=== PATIENT | male | born 1955 | race Caucasian/White ===

== ENCOUNTER 2017-12-14 08:08 | Day surgery (SDC) | payer BC ==
[~2017-12-14] VITALS: Ht 177.8 cm; Wt 78.9 kg
[~2017-12-14 08:08] MED LIST: AMLO5 PO; ATOR20 PO; Hair, Skin & N1 EACH PO
== END 2017-12-14 09:49 | disposition home or self-care (01) ==
LOC: ORSCMMR 08:08 → ORD 09:00 → ORSCMMR 09:49
PROVIDERS: Internal Medicine Gastroenterology
PROC: 0DBN8ZX Excision of Sigmoid Colon, Via Natural or Artificial Opening Endoscopic, Diagnostic (ICD-10-PCS; principal; 2017-12-14 09:00)
PROC: 0DBL8ZX Excision of Transverse Colon, Via Natural or Artificial Opening Endoscopic, Diagnostic (ICD-10-PCS; principal; 2017-12-14 09:00)
DX: Z12.11 Encounter for screening for malignant neoplasm of colon (principal); D12.3 Benign neoplasm of transverse colon; K63.5 Polyp of colon; J44.9 Chronic obstructive pulmonary disease, unspecified; R01.1 Cardiac murmur, unspecified; I10 Essential (primary) hypertension; E78.00 Pure hypercholesterolemia, unspecified; Z79.899 Other long term (current) drug therapy; F17.210 Nicotine dependence, cigarettes, uncomplicated
CPT/HCPCS: 88305; J2250; J7120

== ENCOUNTER 2021-07-27 09:35 | Emergency (ER) | payer OTHER ==
[~2021-07-27] VITALS: Ht 175.3 cm; Wt 77.5 kg
[2021-07-27] MEDS ORDERED: PLAVIX75 MG PO (10:13)
[2021-07-27] MEDS ORDERED: Aspir 8181 MG PO (10:14)
[2021-07-27] MEDS ORDERED: IBUP600 (10:15)
[2021-07-27 10:19] LABS: BASOPHILS ABSOLUTE AUTO 0.05 K/mm3 (0.00-0.23); BASOPHILS PERCENT AUTO 1 % (0-2); EOSINOPHILS PERCENT AUTO 2 % (0-6); Hematocrit 44.3 % (37.0-53.0); IMMATURE GRAN ABSOLUTE AUTO 0.01 K/mm3 (0.00-0.10); IMMATURE GRAN PERCENT AUTO 0 % (0-1); LYMPHOCYTES ABSOLUTE AUTO 1.23 K/mm3 (0.84-5.20); LYMPHOCYTES PERCENT AUTO 19 % (21-46); MONOCYTES ABSOLUTE AUTO 0.59 K/mm3 (0.16-1.47); MONOCYTES PERCENT AUTO 9 % (4-13); Mean Corpuscular HGB 31.6 pg (26.0-34.0); Mean Corpuscular HGB Conc 33.9 g/dL (31.5-36.5); Mean Corpuscular Volume 93 fL (80-100); Mean Platelet Volume 8.6 fL (9.1-12.4); NEUTROPHILS ABSOLUTE AUTO 4.36 K/mm3 (1.96-9.15); NEUTROPHILS PERCENT AUTO 69 % (41-73); Platelet Count 348 K/mm3 (150-400); RDW Coefficient Variation 13.4 % (11.7-14.2); RDW Standard Deviation 46.5 fL (35.1-46.3); Red Blood Cell Count 4.75 M/mm3 (4.30-5.90); White Blood Cell Count 6.34 K/mm3 (4.00-11.30)
[2021-07-27 10:50] LABS: Alanine Aminotransfer (ALT/SGP 20 U/L (12-78); Albumin, Blood 3.3 g/dL (3.4-5.0); Albumin/Globulin Ratio 0.9 (0.8-1.8); Alk Phos 76 U/L (50-136); Anion Gap 3 mmol/L (6-16); Aspartate Aminotrans (AST/SGOT 17 U/L (12-37); Bilirubin, Total 0.3 mg/dL (0.1-1.0); Blood Urea Nitrogen 18 mg/dL (8-24); Bun/Creatinine Ratio 27.1 (12.0-20.0); CO2, Blood 28 mmol/L (21-32); Calcium, Blood 8.7 mg/dL (8.5-10.1); Chloride, Blood 108 mmol/L (98-108); Creatinine, Blood 0.66 mg/dL (0.60-1.20); Globulin, Blood 3.8 g/dL (2.2-4.0); Glomerular Filtration Rate >60 (60-); Glucose, Blood 108 mg/dL (70-99); Potassium, Blood 4.5 mmol/L (3.5-5.5); Sodium, Blood 139 mmol/L (136-145); Total Protein, Blood 7.1 g/dL (6.4-8.2); Troponin I <0.015 ng/mL (0.000-0.040)
[2021-07-27 11:05] LABS: SARS-Cov-2 (COVID-19) PCR, MMC NEGATIVE (NEGATIVE)
== END 2021-07-27 14:30 | disposition home or self-care (01) ==
LOC: ER 09:35
PROVIDERS: Emergency Medicine
DX: C34.91 Malignant neoplasm of unspecified part of right bronchus or lung (principal); I10 Essential (primary) hypertension; Z20.822 Contact with and (suspected) exposure to COVID-19; F17.200 Nicotine dependence, unspecified, uncomplicated; Z79.899 Other long term (current) drug therapy
CPT/HCPCS: 36415; 71045; 71260; 80053; 83690; 83880; 84484; 85025; 93005; 93010; 99284-25; Q9967; U0004

== ENCOUNTER 2022-02-07 10:39 | Emergency (ER) | payer MEDICARE ==
[~2022-02-07] VITALS: Ht 177.8 cm; Wt 81.7 kg
[~2022-02-07 10:39] MED LIST changes: +ALBU2.5V5 INH; +AMOCLA875 PO; +Aspir 8181 MG PO; +DOXY100 PO; +HYDACE10B PO; +HYDROCODONE-AC1 EA15 PO; +IBUP600; +PLAVIX75 MG PO
[2022-02-07 11:09] LABS: BASOPHILS ABSOLUTE AUTO 0.05 K/mm3 (0.00-0.23); BASOPHILS PERCENT AUTO 1 % (0-2); EOSINOPHILS ABSOLUTE AUTO 0.19 K/mm3 (0.00-0.68); EOSINOPHILS PERCENT AUTO 4 % (0-6); Hematocrit 40.2 % (37.0-53.0); Hemoglobin 13.6 g/dL (13.5-17.5); IMMATURE GRAN ABSOLUTE AUTO 0.02 K/mm3 (0.00-0.10); IMMATURE GRAN PERCENT AUTO 0 % (0-1); LYMPHOCYTES ABSOLUTE AUTO 0.48 K/mm3 (0.84-5.20); LYMPHOCYTES PERCENT AUTO 10 % (21-46); MONOCYTES ABSOLUTE AUTO 0.78 K/mm3 (0.16-1.47); MONOCYTES PERCENT AUTO 16 % (4-13); Mean Corpuscular HGB 33.9 pg (26.0-34.0); Mean Corpuscular HGB Conc 33.8 g/dL (31.5-36.5); Mean Corpuscular Volume 100 fL (80-100); Mean Platelet Volume 8.6 fL (9.1-12.4); NEUTROPHILS ABSOLUTE AUTO 3.23 K/mm3 (1.96-9.15); NEUTROPHILS PERCENT AUTO 68 % (41-73); Platelet Count 276 K/mm3 (150-400); RDW Coefficient Variation 12.5 % (11.7-14.2); RDW Standard Deviation 46.6 fL (35.1-46.3); Red Blood Cell Count 4.01 M/mm3 (4.30-5.90); White Blood Cell Count 4.75 K/mm3 (4.00-11.30)
[2022-02-07 11:35] LABS: Albumin, Blood 3.1 g/dL (3.4-5.0); Albumin/Globulin Ratio 0.9 (0.8-1.8); Bilirubin, Total 0.4 mg/dL (0.1-1.0); Bun/Creatinine Ratio 13.5 (12.0-20.0); Calcium, Blood 8.3 mg/dL (8.5-10.1); Creatinine, Blood 0.59 mg/dL (0.60-1.20); Globulin, Blood 3.6 g/dL (2.2-4.0); Potassium, Blood 4.2 mmol/L (3.5-5.5); Total Protein, Blood 6.7 g/dL (6.4-8.2)
[2022-02-07 13:42] LABS: SARS-Cov-2 (COVID-19) PCR, MMC NEGATIVE (NEGATIVE)
[2022-02-07] MEDS ORDERED: DOXY100 PO (14:37)
[2022-02-07] MEDS ORDERED: AMOCLA875 PO (14:37)
== END 2022-02-07 15:28 | disposition home or self-care (01) ==
LOC: ER 10:39
PROVIDERS: Physician Assistant
DX: J18.9 Pneumonia, unspecified organism (principal); I10 Essential (primary) hypertension; I25.2 Old myocardial infarction; F17.210 Nicotine dependence, cigarettes, uncomplicated; Z20.822 Contact with and (suspected) exposure to COVID-19; Z85.118 Personal history of other malignant neoplasm of bronchus and lung; Z79.899 Other long term (current) drug therapy
CPT/HCPCS: 36415; 71046; 71260; 80053; 83880; 84484; 85025; 85379; 93005; 93010; 94640; 94664; A9270; Q9967; U0004

== ENCOUNTER 2022-03-31 05:58 | Emergency (ER) | payer OTHER ==
[~2022-03-31] VITALS: Ht 177.8 cm; Wt 81.7 kg
[2022-03-31 06:55] LABS: BASOPHILS ABSOLUTE AUTO 0.06 K/mm3 (0.00-0.23); BASOPHILS PERCENT AUTO 1 % (0-2); EOSINOPHILS ABSOLUTE AUTO 0.32 K/mm3 (0.00-0.68); EOSINOPHILS PERCENT AUTO 5 % (0-6); Hemoglobin 14.8 g/dL (13.5-17.5); IMMATURE GRAN ABSOLUTE AUTO 0.04 K/mm3 (0.00-0.10); IMMATURE GRAN PERCENT AUTO 1 % (0-1); LYMPHOCYTES ABSOLUTE AUTO 0.16 K/mm3 (0.84-5.20); LYMPHOCYTES PERCENT AUTO 2 % (21-46); MONOCYTES ABSOLUTE AUTO 0.52 K/mm3 (0.16-1.47); MONOCYTES PERCENT AUTO 8 % (4-13); Mean Corpuscular HGB Conc 33.6 g/dL (31.5-36.5); Mean Corpuscular Volume 95 fL (80-100); Mean Platelet Volume 8.1 fL (9.1-12.4); NEUTROPHILS ABSOLUTE AUTO 5.81 K/mm3 (1.96-9.15); NEUTROPHILS PERCENT AUTO 84 % (41-73); Platelet Count 388 K/mm3 (150-400); Red Blood Cell Count 4.62 M/mm3 (4.30-5.90); White Blood Cell Count 6.91 K/mm3 (4.00-11.30)
[2022-03-31 07:30] LABS: Albumin, Blood 3.2 g/dL (3.4-5.0); Albumin/Globulin Ratio 0.8 (0.8-1.8); Bilirubin, Total 0.2 mg/dL (0.1-1.0); Bun/Creatinine Ratio 15.4 (12.0-20.0); Calcium, Blood 8.6 mg/dL (8.5-10.1); Creatinine, Blood 0.59 mg/dL (0.60-1.20); Globulin, Blood 3.8 g/dL (2.2-4.0); Potassium, Blood 4.1 mmol/L (3.5-5.5)
[2022-03-31 07:47] LABS: Source, Urine Clean Catch
[2022-03-31 07:51] LABS: Appearance, Urine Clear (Clear); Bilirubin, Urine Neg (Neg); Blood, Urine Neg (Neg); Glucose Qualitative, Urine Neg (Neg); Ketones, Urine Neg (Neg); Leukocyte Esterase, Urine Neg (Neg); Nitrite, Urine Neg (Neg); Protein, Urine Neg (Neg); Urobilinogen, Urine NORM (Normal)
[2022-03-31 07:52] LABS: Color, Urine Pale Yellow (P-Yellow)
== END 2022-03-31 08:41 | disposition home or self-care (01) ==
LOC: ER 05:58
PROVIDERS: Emergency Medicine
DX: R10.31 Right lower quadrant pain (principal); I25.2 Old myocardial infarction; I10 Essential (primary) hypertension; F17.210 Nicotine dependence, cigarettes, uncomplicated; Z79.899 Other long term (current) drug therapy; Z79.82 Long term (current) use of aspirin
CPT/HCPCS: 74177; 80053; 81003; 83605; 83690; 85025; J2270; J2405; J7030; Q9967

== ENCOUNTER → 2022-04-02 | Outpatient (CLI) | payer OTHER ==
[2022-04-02 19:15] LABS: BASOPHILS ABSOLUTE AUTO 0.06 K/mm3 (0.00-0.23); BASOPHILS PERCENT AUTO 1 % (0-2); EOSINOPHILS ABSOLUTE AUTO 0.29 K/mm3 (0.00-0.68); EOSINOPHILS PERCENT AUTO 5 % (0-6); Hematocrit 43.2 % (37.0-53.0); Hemoglobin 14.4 g/dL (13.5-17.5); IMMATURE GRAN ABSOLUTE AUTO 0.02 K/mm3 (0.00-0.10); IMMATURE GRAN PERCENT AUTO 0 % (0-1); LYMPHOCYTES PERCENT AUTO 8 % (21-46); MONOCYTES ABSOLUTE AUTO 0.55 K/mm3 (0.16-1.47); MONOCYTES PERCENT AUTO 10 % (4-13); Mean Corpuscular HGB 32.1 pg (26.0-34.0); Mean Corpuscular HGB Conc 33.3 g/dL (31.5-36.5); Mean Corpuscular Volume 96 fL (80-100); Mean Platelet Volume 9.6 fL (9.1-12.4); NEUTROPHILS ABSOLUTE AUTO 4.01 K/mm3 (1.96-9.15); NEUTROPHILS PERCENT AUTO 75 % (41-73); Platelet Count 350 K/mm3 (150-400); RDW Coefficient Variation 13.1 % (11.7-14.2); RDW Standard Deviation 46.4 fL (35.1-46.3); Red Blood Cell Count 4.48 M/mm3 (4.30-5.90); White Blood Cell Count 5.33 K/mm3 (4.00-11.30)
[2022-04-02 20:12] LABS: Albumin, Blood 3.3 g/dL (3.4-5.0); Bilirubin, Total 0.5 mg/dL (0.1-1.0); Calcium, Blood 9.2 mg/dL (8.5-10.1); Creatinine, Blood 0.57 mg/dL (0.60-1.20); Globulin, Blood 3.2 g/dL (2.2-4.0); Potassium, Blood 4.8 mmol/L (3.5-5.5); Total Protein, Blood 6.5 g/dL (6.4-8.2)
== END | disposition home or self-care (01) ==
LOC: LAB 12:33 → LAB SHORT 12:33
PROVIDERS: Family Medicine
DX: C34.90 Malignant neoplasm of unspecified part of unspecified bronchus or lung (principal); K92.2 Gastrointestinal hemorrhage, unspecified
CPT/HCPCS: 80053; 85025

== ENCOUNTER 2022-06-24 09:28 | Emergency (ER) | payer OTHER ==
[~2022-06-24] VITALS: Ht 177.8 cm; Wt 81.7 kg
[~2022-06-24 09:28] MED LIST changes: +CEFU500T30 PO; +OMEP20ER PO; +TRAM50 PO
[2022-06-24] MEDS ORDERED: ALPRAZOLAM0.5 M1 PO (09:51)
[2022-06-24 10:13] LABS: BASOPHILS ABSOLUTE AUTO 0.09 K/mm3 (0.00-0.23); BASOPHILS PERCENT AUTO 2 % (0-2); EOSINOPHILS ABSOLUTE AUTO 0.19 K/mm3 (0.00-0.68); EOSINOPHILS PERCENT AUTO 4 % (0-6); Hematocrit 44.8 % (37.0-53.0); Hemoglobin 15.5 g/dL (13.5-17.5); IMMATURE GRAN ABSOLUTE AUTO 0.02 K/mm3 (0.00-0.10); IMMATURE GRAN PERCENT AUTO 0 % (0-1); LYMPHOCYTES ABSOLUTE AUTO 0.51 K/mm3 (0.84-5.20); LYMPHOCYTES PERCENT AUTO 9 % (21-46); MONOCYTES ABSOLUTE AUTO 0.32 K/mm3 (0.16-1.47); MONOCYTES PERCENT AUTO 6 % (4-13); Mean Corpuscular HGB 32.7 pg (26.0-34.0); Mean Corpuscular HGB Conc 34.6 g/dL (31.5-36.5); Mean Corpuscular Volume 95 fL (80-100); NEUTROPHILS ABSOLUTE AUTO 4.34 K/mm3 (1.96-9.15); NEUTROPHILS PERCENT AUTO 79 % (41-73); Platelet Count 305 K/mm3 (150-400); RDW Coefficient Variation 13.7 % (11.7-14.2); RDW Standard Deviation 48.1 fL (35.1-46.3); Red Blood Cell Count 4.74 M/mm3 (4.30-5.90); White Blood Cell Count 5.47 K/mm3 (4.00-11.30)
[2022-06-24 10:51] LABS: Albumin, Blood 3.9 g/dL (3.4-5.0); Albumin/Globulin Ratio 1.1 (0.8-1.8); Bilirubin, Total 0.4 mg/dL (0.1-1.0); Bun/Creatinine Ratio 10.8 (12.0-20.0); Calcium, Blood 8.6 mg/dL (8.5-10.1); Creatinine, Blood 0.65 mg/dL (0.60-1.20); Globulin, Blood 3.7 g/dL (2.2-4.0); Potassium, Blood 3.7 mmol/L (3.5-5.5); Total Protein, Blood 7.6 g/dL (6.4-8.2)
[2022-06-24 11:05] LABS: Influenza A, PCR NEGATIVE (NEGATIVE); Influenza B, PCR NEGATIVE (NEGATIVE); Resp Syncytial Virus, PCR NEGATIVE (NEGATIVE); SARS-Cov-2 (COVID-19) PCR, MMC NEGATIVE (NEGATIVE)
[2022-06-24] MEDS ORDERED: Prednisone20 MG PO (13:18)
== END 2022-06-24 13:27 | disposition home or self-care (01) ==
LOC: ER 09:28
PROVIDERS: Emergency Medicine
DX: R06.02 Shortness of breath (principal); I10 Essential (primary) hypertension; I25.2 Old myocardial infarction; J44.9 Chronic obstructive pulmonary disease, unspecified; F17.210 Nicotine dependence, cigarettes, uncomplicated; Z79.899 Other long term (current) drug therapy; Z79.82 Long term (current) use of aspirin; Z20.822 Contact with and (suspected) exposure to COVID-19; Z85.118 Personal history of other malignant neoplasm of bronchus and lung
CPT/HCPCS: 0241U; 36415; 71045; 80053; 83880; 84484; 85025; 85379; 93005; 93010; 94644; 94664; 96374; 99285-25; J2930

== ENCOUNTER → 2022-07-08 | Outpatient (CLI) | payer OTHER ==
[~2022-07-08] MED LIST changes: +ALPRAZOLAM0.5 M1 PO; +Prednisone20 MG PO
[2022-07-08 11:18] LABS: BASOPHILS ABSOLUTE AUTO 0.01 K/mm3 (0.00-0.23); BASOPHILS PERCENT AUTO 0 % (0-2); EOSINOPHILS ABSOLUTE AUTO 0.03 K/mm3 (0.00-0.68); EOSINOPHILS PERCENT AUTO 0 % (0-6); Hematocrit 42.7 % (37.0-53.0); IMMATURE GRAN ABSOLUTE AUTO 0.08 K/mm3 (0.00-0.10); IMMATURE GRAN PERCENT AUTO 1 % (0-1); LYMPHOCYTES ABSOLUTE AUTO 0.55 K/mm3 (0.84-5.20); LYMPHOCYTES PERCENT AUTO 7 % (21-46); MONOCYTES ABSOLUTE AUTO 0.88 K/mm3 (0.16-1.47); MONOCYTES PERCENT AUTO 11 % (4-13); Mean Corpuscular HGB Conc 32.8 g/dL (31.5-36.5); Mean Corpuscular Volume 98 fL (80-100); Mean Platelet Volume 8.5 fL (9.1-12.4); NEUTROPHILS ABSOLUTE AUTO 6.58 K/mm3 (1.96-9.15); NEUTROPHILS PERCENT AUTO 81 % (41-73); Platelet Count 383 K/mm3 (150-400); RDW Coefficient Variation 15.2 % (11.7-14.2); RDW Standard Deviation 54.4 fL (35.1-46.3); Red Blood Cell Count 4.38 M/mm3 (4.30-5.90); White Blood Cell Count 8.13 K/mm3 (4.00-11.30)
[2022-07-08 11:50] LABS: Albumin, Blood 3.3 g/dL (3.4-5.0); Bilirubin, Total 0.4 mg/dL (0.1-1.0); Bun/Creatinine Ratio 25.1 (12.0-20.0); Calcium, Blood 9.1 mg/dL (8.5-10.1); Creatinine, Blood 0.56 mg/dL (0.60-1.20); Globulin, Blood 3.2 g/dL (2.2-4.0); Potassium, Blood 4.7 mmol/L (3.5-5.5); Total Protein, Blood 6.5 g/dL (6.4-8.2)
== END ==
LOC: LAB SHORT 10:50 → LAB 10:50
PROVIDERS: Internal Medicine Hematology & Oncology
DX: C34.90 Malignant neoplasm of unspecified part of unspecified bronchus or lung (principal)
CPT/HCPCS: 80053; 85025

== ENCOUNTER 2022-07-25 07:17 | Emergency (ER) | payer OTHER ==
[~2022-07-25] VITALS: Ht 177.8 cm; Wt 79.4 kg
[2022-07-25 08:59] LABS: BASOPHILS ABSOLUTE AUTO 0.07 K/mm3 (0.00-0.23); BASOPHILS PERCENT AUTO 1 % (0-2); EOSINOPHILS ABSOLUTE AUTO 0.48 K/mm3 (0.00-0.68); EOSINOPHILS PERCENT AUTO 9 % (0-6); Hematocrit 46.3 % (37.0-53.0); Hemoglobin 15.5 g/dL (13.5-17.5); IMMATURE GRAN ABSOLUTE AUTO 0.01 K/mm3 (0.00-0.10); IMMATURE GRAN PERCENT AUTO 0 % (0-1); LYMPHOCYTES ABSOLUTE AUTO 0.45 K/mm3 (0.84-5.20); LYMPHOCYTES PERCENT AUTO 9 % (21-46); MONOCYTES ABSOLUTE AUTO 0.63 K/mm3 (0.16-1.47); MONOCYTES PERCENT AUTO 12 % (4-13); Mean Corpuscular HGB 32.8 pg (26.0-34.0); Mean Corpuscular HGB Conc 33.5 g/dL (31.5-36.5); Mean Corpuscular Volume 98 fL (80-100); Mean Platelet Volume 8.3 fL (9.1-12.4); NEUTROPHILS ABSOLUTE AUTO 3.45 K/mm3 (1.96-9.15); NEUTROPHILS PERCENT AUTO 68 % (41-73); Platelet Count 362 K/mm3 (150-400); RDW Coefficient Variation 14.3 % (11.7-14.2); RDW Standard Deviation 52.3 fL (35.1-46.3); Red Blood Cell Count 4.72 M/mm3 (4.30-5.90); White Blood Cell Count 5.09 K/mm3 (4.00-11.30)
[2022-07-25 09:19] LABS: Albumin, Blood 3.7 g/dL (3.4-5.0); Albumin/Globulin Ratio 1.1 (0.8-1.8); Bilirubin, Total 0.4 mg/dL (0.1-1.0); Bun/Creatinine Ratio 21.2 (12.0-20.0); Calcium, Blood 8.9 mg/dL (8.5-10.1); Creatinine, Blood 0.52 mg/dL (0.60-1.20); Globulin, Blood 3.5 g/dL (2.2-4.0); Potassium, Blood 4.3 mmol/L (3.5-5.5); Total Protein, Blood 7.2 g/dL (6.4-8.2)
[2022-07-25] MEDS ORDERED: PRED20 PO (10:49)
== END 2022-07-25 10:59 | disposition home or self-care (01) ==
LOC: ER 07:17
PROVIDERS: Emergency Medicine
DX: R06.02 Shortness of breath (principal); J44.9 Chronic obstructive pulmonary disease, unspecified; C34.90 Malignant neoplasm of unspecified part of unspecified bronchus or lung; I10 Essential (primary) hypertension; F17.210 Nicotine dependence, cigarettes, uncomplicated; Z79.899 Other long term (current) drug therapy; Z79.82 Long term (current) use of aspirin; Z99.81 Dependence on supplemental oxygen
CPT/HCPCS: 36415; 71045; 80053; 83880; 84484; 85025; 93005; 93010; 94644; 94664; J2930

== ENCOUNTER 2022-07-30 15:12 | Emergency (ER) | payer OTHER ==
[~2022-07-30] VITALS: Ht 177.8 cm; Wt 77.1 kg
[~2022-07-30 15:12] MED LIST changes: +PRED20 PO
[2022-07-30 16:01] LABS: BASOPHILS ABSOLUTE AUTO 0.03 K/mm3 (0.00-0.23); BASOPHILS PERCENT AUTO 0 % (0-2); EOSINOPHILS ABSOLUTE AUTO 0.03 K/mm3 (0.00-0.68); EOSINOPHILS PERCENT AUTO 0 % (0-6); Hematocrit 46.8 % (37.0-53.0); Hemoglobin 15.8 g/dL (13.5-17.5); IMMATURE GRAN ABSOLUTE AUTO 0.07 K/mm3 (0.00-0.10); IMMATURE GRAN PERCENT AUTO 1 % (0-1); LYMPHOCYTES ABSOLUTE AUTO 0.28 K/mm3 (0.84-5.20); LYMPHOCYTES PERCENT AUTO 3 % (21-46); MONOCYTES ABSOLUTE AUTO 0.21 K/mm3 (0.16-1.47); MONOCYTES PERCENT AUTO 3 % (4-13); Mean Corpuscular HGB 32.9 pg (26.0-34.0); Mean Corpuscular HGB Conc 33.8 g/dL (31.5-36.5); Mean Corpuscular Volume 98 fL (80-100); Mean Platelet Volume 8.4 fL (9.1-12.4); NEUTROPHILS ABSOLUTE AUTO 7.56 K/mm3 (1.96-9.15); NEUTROPHILS PERCENT AUTO 92 % (41-73); Platelet Count 437 K/mm3 (150-400); RDW Coefficient Variation 14.4 % (11.7-14.2); RDW Standard Deviation 51.7 fL (35.1-46.3); White Blood Cell Count 8.18 K/mm3 (4.00-11.30)
[2022-07-30 17:03] LABS: Calcium, Blood 8.9 mg/dL (8.5-10.1); Creatinine, Blood 0.59 mg/dL (0.60-1.20); Potassium, Blood 4.3 mmol/L (3.5-5.5)
== END 2022-07-30 15:57 | disposition left against medical advice (07) ==
LOC: ER 15:12
PROVIDERS: Physician Assistant
DX: T38.0X1A Poisoning by glucocorticoids and synthetic analogues, accidental (unintentional), initial encounter (principal); C34.90 Malignant neoplasm of unspecified part of unspecified bronchus or lung; I10 Essential (primary) hypertension; I25.2 Old myocardial infarction; Z87.891 Personal history of nicotine dependence; Z53.21 Procedure and treatment not carried out due to patient leaving prior to being seen by health care provider
CPT/HCPCS: 80048; 85025

== ENCOUNTER 2022-08-18 04:18 | Emergency (ER) | payer OTHER ==
[~2022-08-18] VITALS: Ht 177.8 cm; Wt 77.1 kg
[2022-08-18] MEDS ORDERED: PRED20 PO (08:34)
[2022-08-18] MEDS ORDERED: ALBU2.5V5 INH (08:34)
[2022-08-18] MEDS ORDERED: AZIT500 PO (08:34)
== END 2022-08-18 08:58 | disposition home or self-care (01) ==
LOC: ER 04:18
DX: J44.1 Chronic obstructive pulmonary disease with (acute) exacerbation (principal); I10 Essential (primary) hypertension; I25.2 Old myocardial infarction; F17.210 Nicotine dependence, cigarettes, uncomplicated; Z95.5 Presence of coronary angioplasty implant and graft; Z79.899 Other long term (current) drug therapy; Z79.82 Long term (current) use of aspirin
CPT/HCPCS: 94640; 94644; 94664; A9270; J2930

== ENCOUNTER 2022-09-04 16:48 | Emergency (ER) | payer OTHER ==
[~2022-09-04] VITALS: Ht 177.8 cm; Wt 77.1 kg
[~2022-09-04 16:48] MED LIST changes: +AZIT500 PO
[2022-09-04 17:26] LABS: BASOPHILS ABSOLUTE AUTO 0.01 K/mm3 (0.00-0.23); BASOPHILS PERCENT AUTO 0 % (0-2); EOSINOPHILS ABSOLUTE AUTO 0.01 K/mm3 (0.00-0.68); EOSINOPHILS PERCENT AUTO 0 % (0-6); Hematocrit 44.7 % (37.0-53.0); Hemoglobin 14.9 g/dL (13.5-17.5); IMMATURE GRAN ABSOLUTE AUTO 0.03 K/mm3 (0.00-0.10); IMMATURE GRAN PERCENT AUTO 1 % (0-1); LYMPHOCYTES ABSOLUTE AUTO 0.18 K/mm3 (0.84-5.20); LYMPHOCYTES PERCENT AUTO 3 % (21-46); MONOCYTES ABSOLUTE AUTO 0.36 K/mm3 (0.16-1.47); MONOCYTES PERCENT AUTO 6 % (4-13); Mean Corpuscular HGB 32.7 pg (26.0-34.0); Mean Corpuscular HGB Conc 33.3 g/dL (31.5-36.5); Mean Corpuscular Volume 98 fL (80-100); Mean Platelet Volume 8.2 fL (9.1-12.4); NEUTROPHILS ABSOLUTE AUTO 5.57 K/mm3 (1.96-9.15); NEUTROPHILS PERCENT AUTO 90 % (41-73); Platelet Count 371 K/mm3 (150-400); RDW Coefficient Variation 15.8 % (11.7-14.2); RDW Standard Deviation 57.3 fL (35.1-46.3); Red Blood Cell Count 4.56 M/mm3 (4.30-5.90); White Blood Cell Count 6.16 K/mm3 (4.00-11.30)
[2022-09-04 17:46] LABS: Albumin, Blood 3.8 g/dL (3.4-5.0); Albumin/Globulin Ratio 1.2 (0.8-1.8); Bilirubin, Total 0.2 mg/dL (0.1-1.0); Bun/Creatinine Ratio 21.5 (12.0-20.0); Calcium, Blood 9.7 mg/dL (8.5-10.1); Creatinine, Blood 0.61 mg/dL (0.60-1.20); Globulin, Blood 3.3 g/dL (2.2-4.0); Potassium, Blood 4.4 mmol/L (3.5-5.5); Total Protein, Blood 7.1 g/dL (6.4-8.2)
[2022-09-04 18:02] LABS: Influenza A, PCR NEGATIVE (NEGATIVE); Influenza B, PCR NEGATIVE (NEGATIVE); Resp Syncytial Virus, PCR NEGATIVE (NEGATIVE); SARS-Cov-2 (COVID-19) PCR, MMC NEGATIVE (NEGATIVE)
[2022-09-04] MEDS ORDERED: IPRAT-ALBUT 0.5-3 ML INH (20:36)
[2022-09-04] MEDS ORDERED: PRED20 PO (20:36)
== END 2022-09-04 20:40 | disposition home or self-care (01) ==
LOC: ER 16:48
PROVIDERS: Emergency Medicine
DX: J44.1 Chronic obstructive pulmonary disease with (acute) exacerbation (principal); I10 Essential (primary) hypertension; I25.2 Old myocardial infarction; F17.210 Nicotine dependence, cigarettes, uncomplicated; Z79.82 Long term (current) use of aspirin; Z79.899 Other long term (current) drug therapy; Z79.52 Long term (current) use of systemic steroids; Z95.5 Presence of coronary angioplasty implant and graft; Z20.822 Contact with and (suspected) exposure to COVID-19
CPT/HCPCS: 0241U; 36415; 71046; 80053; 83880; 84484; 85025; 93005; 93010; 94640; 94664; J2930

== ENCOUNTER 2022-09-06 08:49 | Emergency (ER) | payer OTHER ==
[~2022-09-06] VITALS: Ht 177.8 cm; Wt 77.1 kg
[~2022-09-06 08:49] MED LIST changes: +IPRAT-ALBUT 0.5-3 ML INH
[2022-09-06] MEDS ORDERED: AMLO5 PO (09:24)
[2022-09-06] MEDS ORDERED: CLOP75 (09:25)
[2022-09-06] MEDS ORDERED: FURO40 PO (09:25)
[2022-09-07] MEDS ORDERED: PRED20 PO (04:19)
[2022-09-07] MEDS ORDERED: ALBU90OI INH (04:20)
== END 2022-09-06 09:45 | disposition home or self-care (01) ==
LOC: ER 08:49
DX: Z76.0 Encounter for issue of repeat prescription (principal); I10 Essential (primary) hypertension; I25.2 Old myocardial infarction; J44.9 Chronic obstructive pulmonary disease, unspecified; F17.210 Nicotine dependence, cigarettes, uncomplicated; Z95.5 Presence of coronary angioplasty implant and graft; Z79.899 Other long term (current) drug therapy; Z79.52 Long term (current) use of systemic steroids
CPT/HCPCS: 94640; 94664; J7512

== ENCOUNTER 2022-09-06 13:36 | Emergency (ER) | payer OTHER ==
[~2022-09-06] VITALS: Ht 177.8 cm; Wt 77.1 kg
[~2022-09-06 13:36] MED LIST changes: +CLOP75; +FURO40 PO
[2022-09-07] MEDS ORDERED: PRED20 PO (04:19)
[2022-09-07] MEDS ORDERED: ALBU90OI INH (04:20)
== END 2022-09-06 14:58 | disposition left against medical advice (07) ==
LOC: ER 13:36
DX: R06.00 Dyspnea, unspecified (principal); Z79.52 Long term (current) use of systemic steroids; Z79.899 Other long term (current) drug therapy; Z53.21 Procedure and treatment not carried out due to patient leaving prior to being seen by health care provider
CPT/HCPCS: 93005; 93010

== ENCOUNTER 2022-09-06 22:55 | Inpatient (IN) | payer OTHER ==
[~2022-09-06] VITALS: Ht 177.8 cm; Wt 73.1 kg
[2022-09-06 23:47] LABS: BASOPHILS ABSOLUTE AUTO 0.01 K/mm3 (0.00-0.23); BASOPHILS PERCENT AUTO 0 % (0-2); EOSINOPHILS ABSOLUTE AUTO 0.01 K/mm3 (0.00-0.68); EOSINOPHILS PERCENT AUTO 0 % (0-6); Hematocrit 40.3 % (37.0-53.0); Hemoglobin 13.7 g/dL (13.5-17.5); IMMATURE GRAN ABSOLUTE AUTO 0.05 K/mm3 (0.00-0.10); IMMATURE GRAN PERCENT AUTO 1 % (0-1); LYMPHOCYTES ABSOLUTE AUTO 0.52 K/mm3 (0.84-5.20); LYMPHOCYTES PERCENT AUTO 7 % (21-46); MONOCYTES ABSOLUTE AUTO 0.72 K/mm3 (0.16-1.47); MONOCYTES PERCENT AUTO 10 % (4-13); Mean Corpuscular Volume 97 fL (80-100); Mean Platelet Volume 8.2 fL (9.1-12.4); NEUTROPHILS PERCENT AUTO 82 % (41-73); Platelet Count 331 K/mm3 (150-400); RDW Coefficient Variation 15.8 % (11.7-14.2); RDW Standard Deviation 56.3 fL (35.1-46.3); Red Blood Cell Count 4.15 M/mm3 (4.30-5.90); White Blood Cell Count 7.21 K/mm3 (4.00-11.30)
[2022-09-06 23:57] LABS: Albumin, Blood 3.3 g/dL (3.4-5.0); Albumin/Globulin Ratio 1.1 (0.8-1.8); Bilirubin, Total 0.3 mg/dL (0.1-1.0); Bun/Creatinine Ratio 31.1 (12.0-20.0); Calcium, Blood 8.2 mg/dL (8.5-10.1); Creatinine, Blood 0.61 mg/dL (0.60-1.20); Globulin, Blood 2.9 g/dL (2.2-4.0); Potassium, Blood 4.5 mmol/L (3.5-5.5); Total Protein, Blood 6.2 g/dL (6.4-8.2)
[2022-09-07 01:01] LABS: Influenza A, PCR NEGATIVE (NEGATIVE); Influenza B, PCR NEGATIVE (NEGATIVE); Resp Syncytial Virus, PCR NEGATIVE (NEGATIVE); SARS-Cov-2 (COVID-19) PCR, MMC NEGATIVE (NEGATIVE)
[2022-09-07] MEDS ORDERED: PRED20 PO (04:19)
[2022-09-07] MEDS ORDERED: ALBU90OI INH (04:20)
--- NOTE | 2022-09-07 16:18 | NUR ---
PATIENT ARRIVED TO ROOM AT 1420 VIA WHEELCHAIR. PATIENT TRANSFERRED TO BED INDEPENDENTLY. QUICK ADMISSION DONE. ASSESSMENT AND MEDRIC DONE. SKIN ASSESSMENT c 2 RN VERIFIED DONE. PATIENT ORIENT TO ROOM AND CALL SYSTEM. PATIENT ON O2 2L VIA NC c SPO2 OF 100%. PATIENT REPORTS SOB. LUNGS HAS INS. WHEEZES T/O TO AUSCULTATION. DENIES CP/CHEST DISCOMFORT. FLU VACCINE WAS ADMINISTERED. PATIENT RECEIVED BREATHING TX ADMINISTERED BY RT. AMBULATES IN ROOM INDEPENDENTLY WITHOUT USING ANY ASSISTIVE DEVICES. PATIENT A&OX4. PLEASANT AND COOPERATIVE c CARE. USES CALL LIGHT APPROPRIATELY AND ABLE TO ADVOCATE FOR HIS NEEDS. CALL LIGHT IN REACH.
[2022-09-08 06:18] LABS: Base Excess Venous 8.5 mmol/L; Bicarbonate Venous 31.6 mmol/L (24.0-30.0); PCO2 Venous 40.1 mmHg (38-42); pH Blood Venous 7.51 (7.34-7.37)
[2022-09-08 06:29] LABS: BASOPHILS PERCENT AUTO 0 % (0-2); EOSINOPHILS ABSOLUTE AUTO 0.02 K/mm3 (0.00-0.68); EOSINOPHILS PERCENT AUTO 0 % (0-6); Hematocrit 45.2 % (37.0-53.0); Hemoglobin 15.2 g/dL (13.5-17.5); IMMATURE GRAN ABSOLUTE AUTO 0.08 K/mm3 (0.00-0.10); IMMATURE GRAN PERCENT AUTO 1 % (0-1); LYMPHOCYTES ABSOLUTE AUTO 0.21 K/mm3 (0.84-5.20); LYMPHOCYTES PERCENT AUTO 2 % (21-46); MONOCYTES ABSOLUTE AUTO 0.46 K/mm3 (0.16-1.47); MONOCYTES PERCENT AUTO 5 % (4-13); Mean Corpuscular HGB 32.1 pg (26.0-34.0); Mean Corpuscular HGB Conc 33.6 g/dL (31.5-36.5); Mean Corpuscular Volume 96 fL (80-100); Mean Platelet Volume 8.1 fL (9.1-12.4); NEUTROPHILS ABSOLUTE AUTO 8.91 K/mm3 (1.96-9.15); NEUTROPHILS PERCENT AUTO 92 % (41-73); Platelet Count 364 K/mm3 (150-400); RDW Coefficient Variation 15.5 % (11.7-14.2); RDW Standard Deviation 54.1 fL (35.1-46.3); Red Blood Cell Count 4.73 M/mm3 (4.30-5.90); White Blood Cell Count 9.68 K/mm3 (4.00-11.30)
--- NOTE | 2022-09-08 06:33 | NUR ---
SHIFT SUMMARY PT A&O X 4- PT FORGETFUL- PT AMBULATED TO DOOR MULTIPLE TIMES T/O NIGHT AND INQUIRED ABOUT BREATHING TX- REORIENTED PT TO SCHEDULED NEBULIZER TREATMENTS- PT INDEPENDENT IN ROOM- PT C/O HEADACHE - CALL TO DR. HER FOR TYLENOL PT REPORTED HEADACHE GONE- 609 PT CAME OUT TO THE HALLWAY AND ASKED WHERE HE COULD GO SMOKE- INFORMED PT THAT HE CANNOT SMOKE AND OFFERED NICOTINE PATCH AGAIN- PT AGREED TO NICOTINE PATCH- PT SITTING UP IN BED DRINKING COFFEE
[2022-09-08 06:55] LABS: Bun/Creatinine Ratio 32.9 (12.0-20.0); Calcium, Blood 9.1 mg/dL (8.5-10.1); Creatinine, Blood 0.52 mg/dL (0.60-1.20); Potassium, Blood 4.4 mmol/L (3.5-5.5)
--- NOTE | 2022-09-08 17:17 | NUR ---
SHIFT SUMMARY: PATIENT ALERT AND ORIENTED TO SELF, SORROUNDINGS AND STAFF. PATIENT HAVING DIFFICULTIES REMEMBERING THE SPICIFIC DAY, DATE AND MONTH. PATIENT CALM AND COOPERATIVE c CARE. AMBULATES TO BATHROOM AND BACK IN BED INDEPENDENTLY. RECEIVED SCHEDULED BREATHING TX. PATIENT CONTINUES TO REPORTS SOB. PATIENT ON O2 1L VIA NC c SPO2 94% T/O SHIFT. LUNGS COARSE AND INS/EXP WHEEZES T/O. DENIES CP/CHEST DISCOMFORT. VITAL SIGNS REVIEWED. IV TO L AC SALINE LOCKED. CALL LIGHT IN REACH.
--- NOTE | 2022-09-09 06:26 | NUR ---
SHIFT SUMMARY PT SITTING UP ON SIDE OF BED AT BEGINNING OF SHIFT WITH HIS - PT A&O X 2-3 WITH MOMENTS OF CONFUSION- PT REMINDED MULTIPLE TIMES TO PUT OXYGEN BACK ON - PT CONFUSED T/O NIGHT- PT ABLE TO SLEEP SOME OF THE NIGHT- PT STATED TO THIS RN THIS AM THAT HE HOPES TO GO HOME SO HE CAN SMOKE CIGARETTES- PT REFUSED QUITTING SMOKING INFORMATION WHEN OFFERED 0550 PT SITTING UP ON SIDE OF BED DRINKING COFFEE- GAVE TYLENOL FOR PT REPORTED HEADACHE 0610 PT CAME TO THE DOOR AND WANTED TO KNOW IF HE COULD GO OUTSIDE AND SMOKE- REORIENTED PT ON NO SMOKING AT THE HOSPITAL- PT STATED THAT HE WANTS TO GO HOME TODAY
[2022-09-09] MEDS ORDERED: AZIT500 PO (11:00)
[2022-09-09] MEDS ORDERED: BUDE.25 INH (11:01)
[2022-09-09] MEDS ORDERED: Prednisone10 MG PO (11:06)
--- NOTE | 2022-09-09 12:17 | NUR ---
[facility] HOME PT DISCHARGED HOME VIA HOME O2 AND W/C. EXPLAINED NEW MEDICATIONS TO PT DAUGHTER AND CALLED [facility] PT . IV REMOVED WITH PRESSURE DRESSING APPLIED. CONTINUE POC.
== END 2022-09-09 12:10 | disposition home or self-care (01) | DRG 191 ==
LOC: ER 22:55 → ERHOLD 22:56 → MEDS 09-07 14:27
PROVIDERS: Internal Medicine; Student in an Organized Health Care Education/Training Program; ADMIT Family Medicine
DX: J44.1 Chronic obstructive pulmonary disease with (acute) exacerbation (principal); C34.90 Malignant neoplasm of unspecified part of unspecified bronchus or lung; J96.11 Chronic respiratory failure with hypoxia; I25.10 Atherosclerotic heart disease of native coronary artery without angina pectoris; I10 Essential (primary) hypertension; F17.210 Nicotine dependence, cigarettes, uncomplicated; K21.9 Gastro-esophageal reflux disease without esophagitis; Z20.822 Contact with and (suspected) exposure to COVID-19; Z23 Encounter for immunization; Z79.899 Other long term (current) drug therapy; Z92.21 Personal history of antineoplastic chemotherapy; Z95.5 Presence of coronary angioplasty implant and graft; Z99.81 Dependence on supplemental oxygen; Z79.02 Long term (current) use of antithrombotics/antiplatelets; Z79.82 Long term (current) use of aspirin; Z79.01 Long term (current) use of anticoagulants; Z79.51 Long term (current) use of inhaled steroids; Z79.52 Long term (current) use of systemic steroids; I25.2 Old myocardial infarction; Z90.49 Acquired absence of other specified parts of digestive tract; Z98.890 Other specified postprocedural states
CPT/HCPCS: 0241U; 36415; 71046; 80048; 80053; 82803; 83880; 84484; 85025; 90686; 93005; 93010; 94640; 94644; 94645; 94664; 94760; 96372; 96376; A9270; G0378; J1650; J2920; J2930

== ENCOUNTER 2022-09-19 13:51 | Emergency (ER) | payer OTHER ==
[~2022-09-19] VITALS: Ht 177.8 cm; Wt 81.7 kg
[~2022-09-19 13:51] MED LIST changes: +ALBU90OI INH; -ATOR20 PO; +ATOR40TA PO; +BUDESONIDE-FO10.2 G2 INH; -CLOP75; +CLOP75 PO; +Prednisone10 MG PO
[2022-09-20] MEDS ORDERED: PRED20 PO ×2 (09:02→09:21)
[2022-09-20] MEDS ORDERED: DOXY100 PO ×2 (09:03→09:21)
[2022-09-21] MEDS ORDERED: DOXY100 PO (13:53)
[2022-09-21] MEDS ORDERED: PRED20 PO (13:53)
== END 2022-09-19 15:59 | disposition left against medical advice (07) ==
LOC: ER 13:51
DX: R06.02 Shortness of breath (principal); Z79.899 Other long term (current) drug therapy; Z79.82 Long term (current) use of aspirin; Z79.52 Long term (current) use of systemic steroids; Z53.21 Procedure and treatment not carried out due to patient leaving prior to being seen by health care provider
CPT/HCPCS: 99281

== ENCOUNTER 2022-09-22 23:22 | Inpatient (IN) | payer OTHER ==
[~2022-09-22] VITALS: Ht 177.8 cm; Wt 71.1 kg
[2022-09-22 23:59] LABS: BASOPHILS ABSOLUTE AUTO 0.01 K/mm3 (0.00-0.23); BASOPHILS PERCENT AUTO 0 % (0-2); EOSINOPHILS ABSOLUTE AUTO 0.01 K/mm3 (0.00-0.68); EOSINOPHILS PERCENT AUTO 0 % (0-6); Hematocrit 42.9 % (37.0-53.0); Hemoglobin 14.2 g/dL (13.5-17.5); IMMATURE GRAN ABSOLUTE AUTO 0.03 K/mm3 (0.00-0.10); IMMATURE GRAN PERCENT AUTO 1 % (0-1); LYMPHOCYTES ABSOLUTE AUTO 0.78 K/mm3 (0.84-5.20); LYMPHOCYTES PERCENT AUTO 13 % (21-46); MONOCYTES ABSOLUTE AUTO 0.56 K/mm3 (0.16-1.47); MONOCYTES PERCENT AUTO 9 % (4-13); Mean Corpuscular HGB 31.9 pg (26.0-34.0); Mean Corpuscular HGB Conc 33.1 g/dL (31.5-36.5); Mean Corpuscular Volume 96 fL (80-100); Mean Platelet Volume 8.3 fL (9.1-12.4); NEUTROPHILS ABSOLUTE AUTO 4.57 K/mm3 (1.96-9.15); NEUTROPHILS PERCENT AUTO 77 % (41-73); Platelet Count 310 K/mm3 (150-400); RDW Standard Deviation 53.1 fL (35.1-46.3); Red Blood Cell Count 4.45 M/mm3 (4.30-5.90); White Blood Cell Count 5.96 K/mm3 (4.00-11.30)
[2022-09-23 00:24] LABS: Bun/Creatinine Ratio 34.7 (12.0-20.0); Calcium, Blood 8.5 mg/dL (8.5-10.1); Creatinine, Blood 0.55 mg/dL (0.60-1.20)
[2022-09-23 01:13] LABS: Influenza A, PCR NEGATIVE (NEGATIVE); Influenza B, PCR NEGATIVE (NEGATIVE); Resp Syncytial Virus, PCR NEGATIVE (NEGATIVE); SARS-Cov-2 (COVID-19) PCR, MMC NEGATIVE (NEGATIVE)
[2022-09-23 05:01] LABS: Bun/Creatinine Ratio 35.3 (12.0-20.0); Calcium, Blood 8.9 mg/dL (8.5-10.1); Creatinine, Blood 0.51 mg/dL (0.60-1.20); Potassium, Blood 4.6 mmol/L (3.5-5.5)
[2022-09-23] MEDS ORDERED: OMEP20ER PO (05:06)
[2022-09-23] MEDS ORDERED: IPRAT-ALBUT 0.5-3 ML NEB (05:08)
[2022-09-23] MEDS ORDERED: PRED20 PO (05:09)
[2022-09-23] MEDS ORDERED: DOXY100 PO (05:10)
[2022-09-23 05:18] LABS: BASOPHILS PERCENT AUTO 0 % (0-2); EOSINOPHILS PERCENT AUTO 0 % (0-6); Hematocrit 42.9 % (37.0-53.0); Hemoglobin 14.7 g/dL (13.5-17.5); IMMATURE GRAN ABSOLUTE AUTO 0.04 K/mm3 (0.00-0.10); IMMATURE GRAN PERCENT AUTO 1 % (0-1); LYMPHOCYTES ABSOLUTE AUTO 0.23 K/mm3 (0.84-5.20); LYMPHOCYTES PERCENT AUTO 3 % (21-46); MONOCYTES ABSOLUTE AUTO 0.11 K/mm3 (0.16-1.47); MONOCYTES PERCENT AUTO 1 % (4-13); Mean Corpuscular HGB 32.9 pg (26.0-34.0); Mean Corpuscular HGB Conc 34.3 g/dL (31.5-36.5); Mean Corpuscular Volume 96 fL (80-100); Mean Platelet Volume 8.7 fL (9.1-12.4); NEUTROPHILS ABSOLUTE AUTO 7.91 K/mm3 (1.96-9.15); NEUTROPHILS PERCENT AUTO 95 % (41-73); Platelet Count 336 K/mm3 (150-400); RDW Coefficient Variation 14.7 % (11.7-14.2); RDW Standard Deviation 52.8 fL (35.1-46.3); Red Blood Cell Count 4.47 M/mm3 (4.30-5.90); White Blood Cell Count 8.29 K/mm3 (4.00-11.30)
[2022-09-23 14:12] LABS: Base Excess Venous 8.2 mmol/L; Bicarbonate Venous 31.1 mmol/L (24.0-30.0); PCO2 Venous 42.4 mmHg (38-42); pH Blood Venous 7.48 (7.34-7.37)
--- NOTE | 2022-09-23 19:16 | NUR ---
PT RESTING IN BED NO S/S OF ACUTE DISTRESS, SAFETY MEASURES IN PLACE REPORT GIVEN TO ON COMING NURSE.
--- NOTE | 2022-09-24 02:41 | NUR ---
Event: pt had c/o CP that was on his Left side he described it as a stabbing pain that is constant. paged- EKG ordered and trops. came bedside to evaluate the ekg. Stephani ordered nitro- this was given. Pt's bp was 127/81 and o2 95 on 2L. Stephani then ordered a heparin gtt, metoprolol 5mg x1, and a repeat EKG for 7am.
[2022-09-24 04:50] LABS: International Normalized Ratio 1.04; Prothrombin Time Results 10.9 Sec (9.7-11.5)
--- NOTE | 2022-09-24 04:51 | NUR ---
SHIFT SUMMARY: Pt A/Ox4 but can be forgetful. He is call light appropriate. This shift pt had c/o left sided chest pain, see event note for details. He is now currently on a heparin gtt. He did have c/o SOB, RT gave breathing tx per schedule and PRN. He remains on 2L NC to keep O2 saturations >92%. He is able to ambulate independantly in his room.
--- NOTE | 2022-09-24 19:17 | NUR ---
PT RESTING NO S/S OF ACUTE DISTRESS, SAFETY MEASURES IN PLACE. REPORT GIVEN TO ON COMING NURSE.
--- NOTE | 2022-09-25 04:03 | NUR ---
SHIFT MOSTLY UNREMARKABLE. PATIENT PERIODICALLY COMPLAINS OF DSYPNEA. OXYGEN SATURATION >95%, LUNG SOUNDS WNL. PATIENT HAS BEEN REQUESTING BREATHING TREATMENTS Q 4. ENCOUARGED PATIENT TO NOTIFY NURSE IF OTHER SYMPTOMS DEVELOP. SHIFT OTHERWISE UNREMARKABLE. CALL LIGHT LEFT WITHIN REACH.
[2022-09-25] MEDS ORDERED: HYDPAM50 PO (12:00)
== END 2022-09-25 18:39 | disposition home or self-care (01) | DRG 189 ==
LOC: ER 23:22 → ERHOLD 09-23 03:58 → MEDS 09-23 03:58
PROVIDERS: Emergency Medicine; Family Medicine; Student in an Organized Health Care Education/Training Program; ADMIT Family Medicine
DX: J96.01 Acute respiratory failure with hypoxia (principal); J44.1 Chronic obstructive pulmonary disease with (acute) exacerbation; C34.90 Malignant neoplasm of unspecified part of unspecified bronchus or lung; I50.32 Chronic diastolic (congestive) heart failure; J98.11 Atelectasis; R07.89 Other chest pain; Z20.822 Contact with and (suspected) exposure to COVID-19; I35.0 Nonrheumatic aortic (valve) stenosis; I11.0 Hypertensive heart disease with heart failure; I25.10 Atherosclerotic heart disease of native coronary artery without angina pectoris; I25.2 Old myocardial infarction; Z90.49 Acquired absence of other specified parts of digestive tract; Z95.5 Presence of coronary angioplasty implant and graft; Z98.890 Other specified postprocedural states; Z79.52 Long term (current) use of systemic steroids; Z79.82 Long term (current) use of aspirin; Z79.899 Other long term (current) drug therapy
CPT/HCPCS: 0241U; 36415; 71045; 80048; 82803; 84145; 84484; 85025; 85379; 85610; 85730; 93005; 93010; 94640; 94644; 94645; 94664; 94760; 94762; 96374; 97162; 97165; 97530; 99285-25; A9270; J0696; J1644; J1650; J2060; J2930

== ENCOUNTER 2022-09-27 14:26 | Emergency (ER) | payer OTHER ==
[~2022-09-27] VITALS: Ht 177.8 cm; Wt 81.7 kg
[~2022-09-27 14:26] MED LIST changes: +HYDPAM50 PO; +IPRAT-ALBUT 0.5-3 ML NEB
[2022-09-27 15:33] LABS: BASOPHILS PERCENT AUTO 0 % (0-2); EOSINOPHILS ABSOLUTE AUTO 0.01 K/mm3 (0.00-0.68); EOSINOPHILS PERCENT AUTO 0 % (0-6); Hematocrit 47.7 % (37.0-53.0); Hemoglobin 16.3 g/dL (13.5-17.5); IMMATURE GRAN ABSOLUTE AUTO 0.06 K/mm3 (0.00-0.10); IMMATURE GRAN PERCENT AUTO 1 % (0-1); LYMPHOCYTES ABSOLUTE AUTO 0.41 K/mm3 (0.84-5.20); LYMPHOCYTES PERCENT AUTO 6 % (21-46); MONOCYTES ABSOLUTE AUTO 0.51 K/mm3 (0.16-1.47); MONOCYTES PERCENT AUTO 7 % (4-13); Mean Corpuscular HGB 32.3 pg (26.0-34.0); Mean Corpuscular HGB Conc 34.2 g/dL (31.5-36.5); Mean Corpuscular Volume 95 fL (80-100); Mean Platelet Volume 8.3 fL (9.1-12.4); NEUTROPHILS ABSOLUTE AUTO 6.08 K/mm3 (1.96-9.15); NEUTROPHILS PERCENT AUTO 86 % (41-73); Platelet Count 370 K/mm3 (150-400); RDW Standard Deviation 48.9 fL (35.1-46.3); Red Blood Cell Count 5.04 M/mm3 (4.30-5.90); White Blood Cell Count 7.07 K/mm3 (4.00-11.30)
[2022-09-27 16:00] LABS: Albumin, Blood 3.5 g/dL (3.4-5.0); Albumin/Globulin Ratio 1.2 (0.8-1.8); Bilirubin, Total 0.3 mg/dL (0.1-1.0); Bun/Creatinine Ratio 54.6 (12.0-20.0); Creatinine, Blood 0.51 mg/dL (0.60-1.20); Potassium, Blood 4.3 mmol/L (3.5-5.5); Total Protein, Blood 6.5 g/dL (6.4-8.2)
== END 2022-09-27 16:40 | disposition left against medical advice (07) ==
LOC: ER 14:26
PROVIDERS: Physician Assistant
DX: R06.02 Shortness of breath (principal); Z53.21 Procedure and treatment not carried out due to patient leaving prior to being seen by health care provider
CPT/HCPCS: 36415; 71046; 80053; 83880; 84484; 85025; 93005; 93010

== ENCOUNTER 2022-10-06 05:35 | Emergency (ER) | payer OTHER ==
[~2022-10-06] VITALS: Ht 177.8 cm; Wt 77.1 kg
[2022-10-06] MEDS ORDERED: Nicoderm Cq1 EAC1 TOP (06:37)
== END 2022-10-06 06:47 | disposition home or self-care (01) ==
LOC: ER 05:35
DX: J44.9 Chronic obstructive pulmonary disease, unspecified (principal); F17.210 Nicotine dependence, cigarettes, uncomplicated; I10 Essential (primary) hypertension; Z99.81 Dependence on supplemental oxygen; Z79.899 Other long term (current) drug therapy; Z79.82 Long term (current) use of aspirin
CPT/HCPCS: 99282

== ENCOUNTER 2022-10-12 16:17 | Emergency (ER) | payer OTHER ==
[~2022-10-12] VITALS: Ht 177.8 cm; Wt 77.1 kg
[~2022-10-12 16:17] MED LIST changes: +Nicoderm Cq1 EAC1 TOP
[2022-10-12] MEDS ORDERED: MIRALAX17 GM PO (21:15)
[2022-10-12] MEDS ORDERED: BISA5EC PO (21:15)
== END 2022-10-12 18:45 | disposition left against medical advice (07) ==
LOC: ER 16:17
DX: K59.00 Constipation, unspecified (principal); Z79.899 Other long term (current) drug therapy; Z79.52 Long term (current) use of systemic steroids; Z79.82 Long term (current) use of aspirin; Z53.21 Procedure and treatment not carried out due to patient leaving prior to being seen by health care provider
CPT/HCPCS: 74018; 99281-25

== ENCOUNTER 2022-10-12 19:29 | Emergency (ER) | payer OTHER ==
[~2022-10-12] VITALS: Ht 167.6 cm; Wt 77.1 kg
[2022-10-12 20:08] LABS: BASOPHILS ABSOLUTE AUTO 0.01 K/mm3 (0.00-0.23); BASOPHILS PERCENT AUTO 0 % (0-2); EOSINOPHILS PERCENT AUTO 3 % (0-6); Hematocrit 42.8 % (37.0-53.0); Hemoglobin 14.4 g/dL (13.5-17.5); IMMATURE GRAN ABSOLUTE AUTO 0.05 K/mm3 (0.00-0.10); IMMATURE GRAN PERCENT AUTO 1 % (0-1); LYMPHOCYTES ABSOLUTE AUTO 0.68 K/mm3 (0.84-5.20); LYMPHOCYTES PERCENT AUTO 9 % (21-46); MONOCYTES ABSOLUTE AUTO 0.45 K/mm3 (0.16-1.47); MONOCYTES PERCENT AUTO 6 % (4-13); Mean Corpuscular HGB 32.7 pg (26.0-34.0); Mean Corpuscular HGB Conc 33.6 g/dL (31.5-36.5); Mean Corpuscular Volume 97 fL (80-100); NEUTROPHILS ABSOLUTE AUTO 5.84 K/mm3 (1.96-9.15); NEUTROPHILS PERCENT AUTO 81 % (41-73); Platelet Count 291 K/mm3 (150-400); RDW Coefficient Variation 14.6 % (11.7-14.2); RDW Standard Deviation 52.7 fL (35.1-46.3); Red Blood Cell Count 4.41 M/mm3 (4.30-5.90); White Blood Cell Count 7.23 K/mm3 (4.00-11.30)
[2022-10-12 20:26] LABS: Albumin, Blood 3.3 g/dL (3.4-5.0); Albumin/Globulin Ratio 1.1 (0.8-1.8); Bilirubin, Total 0.4 mg/dL (0.1-1.0); Bun/Creatinine Ratio 25.8 (12.0-20.0); Calcium, Blood 8.7 mg/dL (8.5-10.1); Creatinine, Blood 0.54 mg/dL (0.60-1.20); Globulin, Blood 3.1 g/dL (2.2-4.0); Potassium, Blood 3.9 mmol/L (3.5-5.5); Total Protein, Blood 6.4 g/dL (6.4-8.2)
[2022-10-12] MEDS ORDERED: MIRALAX17 GM PO (21:15)
[2022-10-12] MEDS ORDERED: BISA5EC PO (21:15)
== END 2022-10-12 21:30 | disposition home or self-care (01) ==
LOC: ER 19:29
PROVIDERS: Student in an Organized Health Care Education/Training Program
DX: K59.00 Constipation, unspecified (principal); I25.2 Old myocardial infarction; I10 Essential (primary) hypertension; J44.9 Chronic obstructive pulmonary disease, unspecified; F17.210 Nicotine dependence, cigarettes, uncomplicated; Z95.5 Presence of coronary angioplasty implant and graft; Z79.899 Other long term (current) drug therapy; Z79.52 Long term (current) use of systemic steroids
CPT/HCPCS: 36415; 74177; 80053; 83690; 85025; 99284-25; Q9967

== ENCOUNTER 2022-10-15 05:41 | Emergency (ER) | payer OTHER ==
[~2022-10-15] VITALS: Ht 177.8 cm; Wt 74.8 kg
[~2022-10-15 05:41] MED LIST changes: +BISA5EC PO; +MIRALAX17 GM PO
[2022-10-15 06:04] LABS: BASOPHILS ABSOLUTE AUTO 0.03 K/mm3 (0.00-0.23); BASOPHILS PERCENT AUTO 1 % (0-2); EOSINOPHILS ABSOLUTE AUTO 0.17 K/mm3 (0.00-0.68); EOSINOPHILS PERCENT AUTO 4 % (0-6); Hematocrit 40.4 % (37.0-53.0); Hemoglobin 13.5 g/dL (13.5-17.5); IMMATURE GRAN ABSOLUTE AUTO 0.06 K/mm3 (0.00-0.10); IMMATURE GRAN PERCENT AUTO 2 % (0-1); LYMPHOCYTES ABSOLUTE AUTO 0.53 K/mm3 (0.84-5.20); LYMPHOCYTES PERCENT AUTO 13 % (21-46); MONOCYTES ABSOLUTE AUTO 0.61 K/mm3 (0.16-1.47); MONOCYTES PERCENT AUTO 15 % (4-13); Mean Corpuscular HGB Conc 33.4 g/dL (31.5-36.5); Mean Corpuscular Volume 99 fL (80-100); Mean Platelet Volume 8.4 fL (9.1-12.4); NEUTROPHILS ABSOLUTE AUTO 2.72 K/mm3 (1.96-9.15); NEUTROPHILS PERCENT AUTO 66 % (41-73); Platelet Count 337 K/mm3 (150-400); RDW Coefficient Variation 14.9 % (11.7-14.2); RDW Standard Deviation 54.4 fL (35.1-46.3); Red Blood Cell Count 4.09 M/mm3 (4.30-5.90); White Blood Cell Count 4.12 K/mm3 (4.00-11.30)
[2022-10-15 06:22] LABS: Albumin, Blood 3.1 g/dL (3.4-5.0); Albumin/Globulin Ratio 0.9 (0.8-1.8); Bilirubin, Total 0.4 mg/dL (0.1-1.0); Bun/Creatinine Ratio 19.9 (12.0-20.0); Creatinine, Blood 0.55 mg/dL (0.60-1.20); Globulin, Blood 3.3 g/dL (2.2-4.0); Potassium, Blood 4.2 mmol/L (3.5-5.5); Total Protein, Blood 6.4 g/dL (6.4-8.2)
[2022-10-15] MEDS ORDERED: MAGCIT300 PO (06:53)
== END 2022-10-15 07:05 | disposition home or self-care (01) ==
LOC: ER 05:41
PROVIDERS: Emergency Medicine
DX: R53.83 Other fatigue (principal); R53.81 Other malaise; K59.00 Constipation, unspecified; I25.2 Old myocardial infarction; I10 Essential (primary) hypertension; J44.9 Chronic obstructive pulmonary disease, unspecified; F17.210 Nicotine dependence, cigarettes, uncomplicated; Z79.899 Other long term (current) drug therapy; Z79.82 Long term (current) use of aspirin
CPT/HCPCS: 36415; 80053; 84484; 85025; 93005; 93010; 99283-25

== ENCOUNTER 2022-10-19 05:16 | Emergency (ER) | payer OTHER ==
[~2022-10-19] VITALS: Ht 177.8 cm; Wt 77.1 kg
[~2022-10-19 05:16] MED LIST changes: +MAGCIT300 PO
[2022-10-19] MEDS ORDERED: Ventolin5 MG/1 ML INH (06:46)
[2022-10-19] MEDS ORDERED: IPRAT-ALBUT 0.5-3 ML INH (06:50)
== END 2022-10-19 07:30 | disposition home or self-care (01) ==
LOC: ER 05:16
DX: R06.02 Shortness of breath (principal); I35.0 Nonrheumatic aortic (valve) stenosis; C34.90 Malignant neoplasm of unspecified part of unspecified bronchus or lung; J44.9 Chronic obstructive pulmonary disease, unspecified; I25.2 Old myocardial infarction; I10 Essential (primary) hypertension; F17.210 Nicotine dependence, cigarettes, uncomplicated; Z79.899 Other long term (current) drug therapy; Z79.02 Long term (current) use of antithrombotics/antiplatelets; Z99.81 Dependence on supplemental oxygen
CPT/HCPCS: 94640; 94664

== ENCOUNTER 2022-11-02 09:22 | Emergency (ER) | payer OTHER ==
[~2022-11-02] VITALS: Ht 177.8 cm; Wt 77.1 kg
[~2022-11-02 09:22] MED LIST changes: +Flomax0.4 MG PO; +LAVAP4L PO; +Ventolin5 MG/1 ML INH
[2022-11-02 10:37] LABS: BASOPHILS ABSOLUTE AUTO 0.02 K/mm3 (0.00-0.23); BASOPHILS PERCENT AUTO 0 % (0-2); EOSINOPHILS ABSOLUTE AUTO 0.11 K/mm3 (0.00-0.68); EOSINOPHILS PERCENT AUTO 1 % (0-6); Hematocrit 44.9 % (37.0-53.0); Hemoglobin 14.7 g/dL (13.5-17.5); IMMATURE GRAN ABSOLUTE AUTO 0.16 K/mm3 (0.00-0.10); IMMATURE GRAN PERCENT AUTO 2 % (0-1); LYMPHOCYTES ABSOLUTE AUTO 0.54 K/mm3 (0.84-5.20); LYMPHOCYTES PERCENT AUTO 7 % (21-46); MONOCYTES ABSOLUTE AUTO 0.99 K/mm3 (0.16-1.47); MONOCYTES PERCENT AUTO 12 % (4-13); Mean Corpuscular HGB 32.5 pg (26.0-34.0); Mean Corpuscular HGB Conc 32.7 g/dL (31.5-36.5); Mean Corpuscular Volume 99 fL (80-100); Mean Platelet Volume 8.1 fL (9.1-12.4); NEUTROPHILS PERCENT AUTO 78 % (41-73); Platelet Count 469 K/mm3 (150-400); RDW Coefficient Variation 16.1 % (11.7-14.2); RDW Standard Deviation 58.4 fL (35.1-46.3); Red Blood Cell Count 4.52 M/mm3 (4.30-5.90); White Blood Cell Count 8.32 K/mm3 (4.00-11.30)
[2022-11-02 10:56] LABS: Albumin, Blood 3.7 g/dL (3.4-5.0); Albumin/Globulin Ratio 1.2 (0.8-1.8); Bilirubin, Total 0.3 mg/dL (0.1-1.0); Bun/Creatinine Ratio 33.3 (12.0-20.0); Calcium, Blood 8.7 mg/dL (8.5-10.1); Creatinine, Blood 0.57 mg/dL (0.60-1.20); Globulin, Blood 3.1 g/dL (2.2-4.0); Potassium, Blood 3.5 mmol/L (3.5-5.5); Total Protein, Blood 6.8 g/dL (6.4-8.2)
[2022-11-02 11:29] LABS: Influenza A, PCR NEGATIVE (NEGATIVE); Influenza B, PCR NEGATIVE (NEGATIVE); Resp Syncytial Virus, PCR NEGATIVE (NEGATIVE); SARS-Cov-2 (COVID-19) PCR, MMC NEGATIVE (NEGATIVE)
== END 2022-11-02 12:09 | disposition home or self-care (01) ==
LOC: ER 09:22
PROVIDERS: Student in an Organized Health Care Education/Training Program
DX: R06.02 Shortness of breath (principal); I25.2 Old myocardial infarction; I10 Essential (primary) hypertension; J44.9 Chronic obstructive pulmonary disease, unspecified; F17.210 Nicotine dependence, cigarettes, uncomplicated; Z20.822 Contact with and (suspected) exposure to COVID-19; Z79.82 Long term (current) use of aspirin; Z79.899 Other long term (current) drug therapy
CPT/HCPCS: 0241U; 36415; 71046; 80053; 83880; 84484; 85025; 85379; 93005; 93010

== ENCOUNTER 2022-11-04 13:21 | Emergency (ER) | payer OTHER ==
[~2022-11-04] VITALS: Ht 177.8 cm; Wt 72.6 kg
[2022-11-04 14:53] LABS: Source, Urine Foley catheter
[2022-11-04 14:57] LABS: Appearance, Urine Clear (Clear); Bilirubin, Urine Neg (Neg); Blood, Urine Neg (Neg); Color, Urine Yellow (P-Yellow); Glucose Qualitative, Urine 1+ (Neg); Ketones, Urine Neg (Neg); Leukocyte Esterase, Urine Neg (Neg); Nitrite, Urine Neg (Neg); Protein, Urine Neg (Neg); Specific Gravity, Urine 1.015 (1.003-1.022); Urobilinogen, Urine NORM (Normal); pH, Urine 6.5 (5.0-8.0)
== END 2022-11-04 15:12 | disposition home or self-care (01) ==
LOC: ER 13:21
PROVIDERS: Physician Assistant
DX: R33.9 Retention of urine, unspecified (principal); Z79.899 Other long term (current) drug therapy; Z79.52 Long term (current) use of systemic steroids; Z79.82 Long term (current) use of aspirin; I10 Essential (primary) hypertension; J44.9 Chronic obstructive pulmonary disease, unspecified; F17.210 Nicotine dependence, cigarettes, uncomplicated
CPT/HCPCS: 51702; 51798; 81003; 99283-25

== ENCOUNTER 2022-11-19 09:47 | Emergency (ER) | payer OTHER ==
[~2022-11-19] VITALS: Ht 177.8 cm; Wt 77.1 kg
[2022-11-19 10:52] LABS: BASOPHILS ABSOLUTE AUTO 0.04 K/mm3 (0.00-0.23); BASOPHILS PERCENT AUTO 0 % (0-2); EOSINOPHILS ABSOLUTE AUTO 0.13 K/mm3 (0.00-0.68); EOSINOPHILS PERCENT AUTO 1 % (0-6); Hematocrit 25.1 % (37.0-53.0); Hemoglobin 8.1 g/dL (13.5-17.5); IMMATURE GRAN ABSOLUTE AUTO 0.16 K/mm3 (0.00-0.10); IMMATURE GRAN PERCENT AUTO 2 % (0-1); LYMPHOCYTES ABSOLUTE AUTO 0.94 K/mm3 (0.84-5.20); LYMPHOCYTES PERCENT AUTO 10 % (21-46); MONOCYTES ABSOLUTE AUTO 0.73 K/mm3 (0.16-1.47); MONOCYTES PERCENT AUTO 8 % (4-13); Mean Corpuscular HGB 32.1 pg (26.0-34.0); Mean Corpuscular HGB Conc 32.3 g/dL (31.5-36.5); Mean Corpuscular Volume 100 fL (80-100); Mean Platelet Volume 8.7 fL (9.1-12.4); NEUTROPHILS ABSOLUTE AUTO 7.24 K/mm3 (1.96-9.15); NEUTROPHILS PERCENT AUTO 78 % (41-73); Platelet Count 258 K/mm3 (150-400); RDW Coefficient Variation 14.9 % (11.7-14.2); RDW Standard Deviation 54.4 fL (35.1-46.3); Red Blood Cell Count 2.52 M/mm3 (4.30-5.90); White Blood Cell Count 9.24 K/mm3 (4.00-11.30)
[2022-11-19 11:18] LABS: Albumin, Blood 2.6 g/dL (3.4-5.0); Albumin/Globulin Ratio 1.1 (0.8-1.8); Bilirubin, Total 0.1 mg/dL (0.1-1.0); Bun/Creatinine Ratio 116.5 (12.0-20.0); Creatinine, Blood 0.53 mg/dL (0.60-1.20); Globulin, Blood 2.4 g/dL (2.2-4.0); Potassium, Blood 3.8 mmol/L (3.5-5.5)
[2022-11-19 17:08] LABS: Influenza A, PCR NEGATIVE (NEGATIVE); Influenza B, PCR NEGATIVE (NEGATIVE); Resp Syncytial Virus, PCR NEGATIVE (NEGATIVE); SARS-Cov-2 (COVID-19) PCR, MMC NEGATIVE (NEGATIVE)
== END 2022-11-19 19:45 | disposition short-term general hospital (02) ==
LOC: ER 09:47
PROVIDERS: Emergency Medicine
DX: K92.2 Gastrointestinal hemorrhage, unspecified (principal); D62 Acute posthemorrhagic anemia; Z79.899 Other long term (current) drug therapy; Z79.52 Long term (current) use of systemic steroids; Z79.82 Long term (current) use of aspirin; I25.2 Old myocardial infarction; I10 Essential (primary) hypertension; J44.9 Chronic obstructive pulmonary disease, unspecified; F17.210 Nicotine dependence, cigarettes, uncomplicated
CPT/HCPCS: 0241U; 71045; 80053; 85025; 93005; 93010; 94644; 94664; 96365; 96366; 96375; 96376; 99285-25; C9113; J2930; J7030

== ENCOUNTER 2022-11-23 19:25 | Emergency (ER) | payer OTHER ==
[~2022-11-23] VITALS: Ht 177.8 cm; Wt 74.8 kg
[2022-11-23 20:16] LABS: Source, Urine Foley catheter
[2022-11-23 20:26] LABS: Appearance, Urine Cloudy (Clear); Blood, Urine 4+ (Neg); Color, Urine Yellow (P-Yellow); Glucose Qualitative, Urine Neg (Neg); Ketones, Urine 2+ (Neg); Leukocyte Esterase, Urine 3+ (Neg); Nitrite, Urine Pos (Neg); Protein, Urine 3+ (Neg); Urobilinogen, Urine 2+ (Normal)
[2022-11-23 20:46] LABS: Bilirubin, Urine 1+ (Neg)
[2022-11-23 20:48] LABS: Bacteria Mod /hpf; Squamous Epithelial Cells Not Seen /hpf (Few); White Blood Cells, Urine 50-100 /hpf (0-5)
[2022-11-23 20:49] LABS: Yeast/Fungi Urine Few /hpf
[2022-11-23] MEDS ORDERED: CEPH500 PO (21:02)
== END 2022-11-23 21:10 | disposition home or self-care (01) ==
LOC: ER 19:25
PROVIDERS: Physician Assistant
DX: N39.0 Urinary tract infection, site not specified (principal); T83.098A Other mechanical complication of other urinary catheter, initial encounter; I25.2 Old myocardial infarction; I10 Essential (primary) hypertension; J44.9 Chronic obstructive pulmonary disease, unspecified; F17.210 Nicotine dependence, cigarettes, uncomplicated; Z79.52 Long term (current) use of systemic steroids; Z79.899 Other long term (current) drug therapy
CPT/HCPCS: 51702; 51798; 81001; 96372-59; 99283-25; A9270; J1885

== ENCOUNTER 2022-12-21 15:21 | Emergency (ER) | payer OTHER ==
[~2022-12-21] VITALS: Ht 177.8 cm; Wt 70.3 kg
[~2022-12-21 15:21] MED LIST changes: +CEPH500 PO
== END 2022-12-21 17:30 | disposition left against medical advice (07) ==
LOC: ER 15:21
DX: Z46.6 Encounter for fitting and adjustment of urinary device (principal); I25.2 Old myocardial infarction; I10 Essential (primary) hypertension; J44.9 Chronic obstructive pulmonary disease, unspecified; Z53.21 Procedure and treatment not carried out due to patient leaving prior to being seen by health care provider; Z79.899 Other long term (current) drug therapy; Z79.82 Long term (current) use of aspirin; F17.210 Nicotine dependence, cigarettes, uncomplicated
CPT/HCPCS: 99283

== ENCOUNTER 2022-12-23 06:39 | Emergency (ER) | payer OTHER ==
[~2022-12-23] VITALS: Ht 170.2 cm; Wt 79.4 kg
[2022-12-23 07:00] VITALS: BP 132/74
[2022-12-23 07:44] LABS: Source, Urine Clean Catch
[2022-12-23 08:24] LABS: Appearance, Urine Cloudy (Clear); Bilirubin, Urine Neg (Neg); Blood, Urine Neg (Neg); Color, Urine Yellow (P-Yellow); Glucose Qualitative, Urine Neg (Neg); Ketones, Urine Neg (Neg); Leukocyte Esterase, Urine 1+ (Neg); Nitrite, Urine Pos (Neg); Protein, Urine Neg (Neg); Urobilinogen, Urine NORM (Normal)
[2022-12-23 08:32] LABS: Bacteria Many /hpf; Red Blood Cells, Urine 0-2 /hpf (0-2); Squamous Epithelial Cells Not Seen /hpf (Few)
[2022-12-23 08:34] LABS: BASOPHILS ABSOLUTE AUTO 0.06 K/mm3 (0.00-0.23); BASOPHILS PERCENT AUTO 1 % (0-2); EOSINOPHILS ABSOLUTE AUTO 0.37 K/mm3 (0.00-0.68); EOSINOPHILS PERCENT AUTO 5 % (0-6); Hematocrit 37.3 % (37.0-53.0); Hemoglobin 11.7 g/dL (13.5-17.5); IMMATURE GRAN ABSOLUTE AUTO 0.02 K/mm3 (0.00-0.10); IMMATURE GRAN PERCENT AUTO 0 % (0-1); LYMPHOCYTES ABSOLUTE AUTO 0.59 K/mm3 (0.84-5.20); LYMPHOCYTES PERCENT AUTO 9 % (21-46); MONOCYTES ABSOLUTE AUTO 0.79 K/mm3 (0.16-1.47); MONOCYTES PERCENT AUTO 12 % (4-13); Mean Corpuscular HGB 29.4 pg (26.0-34.0); Mean Corpuscular HGB Conc 31.4 g/dL (31.5-36.5); Mean Corpuscular Volume 94 fL (80-100); Mean Platelet Volume 8.6 fL (9.1-12.4); NEUTROPHILS ABSOLUTE AUTO 5.05 K/mm3 (1.96-9.15); NEUTROPHILS PERCENT AUTO 73 % (41-73); Platelet Count 473 K/mm3 (150-400); RDW Coefficient Variation 16.5 % (11.7-14.2); RDW Standard Deviation 57.9 fL (35.1-46.3); Red Blood Cell Count 3.98 M/mm3 (4.30-5.90); White Blood Cell Count 6.88 K/mm3 (4.00-11.30)
[2022-12-23 08:50] LABS: Albumin, Blood 3.4 g/dL (3.4-5.0); Albumin/Globulin Ratio 1.1 (0.8-1.8); Bilirubin, Total 0.2 mg/dL (0.1-1.0); Bun/Creatinine Ratio 18.5 (12.0-20.0); Calcium, Blood 8.9 mg/dL (8.5-10.1); Creatinine, Blood 0.59 mg/dL (0.60-1.20); Globulin, Blood 3.2 g/dL (2.2-4.0); Potassium, Blood 4.4 mmol/L (3.5-5.5); Total Protein, Blood 6.6 g/dL (6.4-8.2)
[2022-12-23] MEDS ORDERED: MIRALAX17 GM PO (08:59)
[2022-12-23] MEDS ORDERED: CEFP200 PO (08:59)
== END 2022-12-23 09:14 | disposition home or self-care (01) ==
LOC: ER 06:39
PROVIDERS: Student in an Organized Health Care Education/Training Program
DX: K59.00 Constipation, unspecified (principal); N39.0 Urinary tract infection, site not specified; R33.9 Retention of urine, unspecified; C34.90 Malignant neoplasm of unspecified part of unspecified bronchus or lung; I25.2 Old myocardial infarction; I10 Essential (primary) hypertension; J44.9 Chronic obstructive pulmonary disease, unspecified; F17.210 Nicotine dependence, cigarettes, uncomplicated; Z79.899 Other long term (current) drug therapy; Z79.82 Long term (current) use of aspirin
CPT/HCPCS: 36415; 51702; 51798; 74177; 80053; 81001; 83735; 85025; 87077; 87086; 87186; 96374-59; 99284-25; J0696; Q9967

== ENCOUNTER 2023-01-01 23:43 | Emergency (ER) | payer OTHER ==
[~2023-01-01] VITALS: Ht 177.8 cm; Wt 72.6 kg
[~2023-01-01 23:43] MED LIST changes: +CEFP200 PO
[2023-01-02 01:27] LABS: BASOPHILS ABSOLUTE AUTO 0.09 K/mm3 (0.00-0.23); BASOPHILS PERCENT AUTO 1 % (0-2); EOSINOPHILS ABSOLUTE AUTO 0.54 K/mm3 (0.00-0.68); EOSINOPHILS PERCENT AUTO 7 % (0-6); Hematocrit 37.8 % (37.0-53.0); Hemoglobin 11.8 g/dL (13.5-17.5); IMMATURE GRAN ABSOLUTE AUTO 0.03 K/mm3 (0.00-0.10); IMMATURE GRAN PERCENT AUTO 0 % (0-1); LYMPHOCYTES PERCENT AUTO 4 % (21-46); MONOCYTES PERCENT AUTO 6 % (4-13); Mean Corpuscular HGB 28.9 pg (26.0-34.0); Mean Corpuscular HGB Conc 31.2 g/dL (31.5-36.5); Mean Corpuscular Volume 93 fL (80-100); Mean Platelet Volume 8.3 fL (9.1-12.4); NEUTROPHILS ABSOLUTE AUTO 6.86 K/mm3 (1.96-9.15); NEUTROPHILS PERCENT AUTO 82 % (41-73); Platelet Count 410 K/mm3 (150-400); RDW Coefficient Variation 16.1 % (11.7-14.2); Red Blood Cell Count 4.08 M/mm3 (4.30-5.90); White Blood Cell Count 8.32 K/mm3 (4.00-11.30)
[2023-01-02 01:45] LABS: Albumin, Blood 3.4 g/dL (3.4-5.0); Bilirubin, Total 0.2 mg/dL (0.1-1.0); Bun/Creatinine Ratio 12.3 (12.0-20.0); Calcium, Blood 9.3 mg/dL (8.5-10.1); Creatinine, Blood 0.73 mg/dL (0.60-1.20); Globulin, Blood 3.5 g/dL (2.2-4.0); Total Protein, Blood 6.9 g/dL (6.4-8.2)
[2023-01-02] MEDS ORDERED: PRED20 PO (04:33)
[2023-01-02 04:47] VITALS: BP 128/66
== END 2023-01-02 04:50 | disposition home or self-care (01) ==
LOC: ER 23:43
PROVIDERS: Student in an Organized Health Care Education/Training Program
DX: J44.1 Chronic obstructive pulmonary disease with (acute) exacerbation (principal); Z79.899 Other long term (current) drug therapy; Z79.82 Long term (current) use of aspirin; I11.0 Hypertensive heart disease with heart failure; I50.9 Heart failure, unspecified; I25.2 Old myocardial infarction; F17.210 Nicotine dependence, cigarettes, uncomplicated
CPT/HCPCS: 71046; 80053; 85025; 94644; 94645; 94664; 99285-25; A9270; J7512

== ENCOUNTER 2023-01-08 10:34 | Emergency (ER) | payer OTHER ==
[~2023-01-08] VITALS: Ht 177.8 cm; Wt 77.1 kg
[2023-01-08 10:45] VITALS: BP 100/60
[2023-01-08 11:04] LABS: BASOPHILS ABSOLUTE AUTO 0.09 K/mm3 (0.00-0.23); BASOPHILS PERCENT AUTO 1 % (0-2); EOSINOPHILS ABSOLUTE AUTO 1.11 K/mm3 (0.00-0.68); EOSINOPHILS PERCENT AUTO 14 % (0-6); Hematocrit 38.3 % (37.0-53.0); Hemoglobin 12.2 g/dL (13.5-17.5); IMMATURE GRAN ABSOLUTE AUTO 0.03 K/mm3 (0.00-0.10); IMMATURE GRAN PERCENT AUTO 0 % (0-1); LYMPHOCYTES ABSOLUTE AUTO 0.52 K/mm3 (0.84-5.20); LYMPHOCYTES PERCENT AUTO 7 % (21-46); MONOCYTES ABSOLUTE AUTO 0.68 K/mm3 (0.16-1.47); MONOCYTES PERCENT AUTO 9 % (4-13); Mean Corpuscular HGB 28.7 pg (26.0-34.0); Mean Corpuscular HGB Conc 31.9 g/dL (31.5-36.5); Mean Corpuscular Volume 90 fL (80-100); Mean Platelet Volume 8.3 fL (9.1-12.4); NEUTROPHILS ABSOLUTE AUTO 5.58 K/mm3 (1.96-9.15); NEUTROPHILS PERCENT AUTO 70 % (41-73); Platelet Count 415 K/mm3 (150-400); RDW Coefficient Variation 16.3 % (11.7-14.2); RDW Standard Deviation 54.5 fL (35.1-46.3); Red Blood Cell Count 4.25 M/mm3 (4.30-5.90); White Blood Cell Count 8.01 K/mm3 (4.00-11.30)
[2023-01-08 11:30] LABS: Albumin, Blood 3.2 g/dL (3.4-5.0); Bilirubin, Total 0.2 mg/dL (0.1-1.0); Creatinine, Blood 0.37 mg/dL (0.60-1.20); Globulin, Blood 3.1 g/dL (2.2-4.0); Potassium, Blood 3.7 mmol/L (3.5-5.5); Total Protein, Blood 6.3 g/dL (6.4-8.2)
== END 2023-01-08 15:44 | disposition home or self-care (01) ==
LOC: ER 10:34
PROVIDERS: Student in an Organized Health Care Education/Training Program
DX: J44.1 Chronic obstructive pulmonary disease with (acute) exacerbation (principal); R05.9 Cough, unspecified; Z79.899 Other long term (current) drug therapy; Z79.82 Long term (current) use of aspirin; I10 Essential (primary) hypertension; F17.210 Nicotine dependence, cigarettes, uncomplicated
CPT/HCPCS: 36415; 71046; 80053; 83880; 84484; 85025; 93005; 93010; 94640; 94664; 96374; 99284-25; A9270; J1885; J7512

== ENCOUNTER 2023-02-01 01:09 | Inpatient (IN) | payer OTHER ==
[~2023-02-01] VITALS: Ht 177.8 cm; Wt 68.3 kg
[2023-02-01 01:55] LABS: BASOPHILS PERCENT AUTO 1 % (0-2); EOSINOPHILS ABSOLUTE AUTO 0.81 K/mm3 (0.00-0.68); EOSINOPHILS PERCENT AUTO 8 % (0-6); Hematocrit 40.2 % (37.0-53.0); Hemoglobin 12.4 g/dL (13.5-17.5); IMMATURE GRAN ABSOLUTE AUTO 0.05 K/mm3 (0.00-0.10); IMMATURE GRAN PERCENT AUTO 1 % (0-1); LYMPHOCYTES ABSOLUTE AUTO 0.57 K/mm3 (0.84-5.20); LYMPHOCYTES PERCENT AUTO 6 % (21-46); MONOCYTES ABSOLUTE AUTO 0.88 K/mm3 (0.16-1.47); MONOCYTES PERCENT AUTO 9 % (4-13); Mean Corpuscular HGB 27.4 pg (26.0-34.0); Mean Corpuscular HGB Conc 30.8 g/dL (31.5-36.5); Mean Corpuscular Volume 89 fL (80-100); Mean Platelet Volume 8.4 fL (9.1-12.4); NEUTROPHILS PERCENT AUTO 75 % (41-73); Platelet Count 565 K/mm3 (150-400); RDW Coefficient Variation 17.7 % (11.7-14.2); RDW Standard Deviation 57.4 fL (35.1-46.3); Red Blood Cell Count 4.53 M/mm3 (4.30-5.90); White Blood Cell Count 9.81 K/mm3 (4.00-11.30)
[2023-02-01 02:14] LABS: Albumin, Blood 3.4 g/dL (3.4-5.0); Albumin/Globulin Ratio 0.9 (0.8-1.8); Bilirubin, Total 0.3 mg/dL (0.1-1.0); Bun/Creatinine Ratio 17.7 (12.0-20.0); Creatinine, Blood 0.68 mg/dL (0.60-1.20); Globulin, Blood 3.6 g/dL (2.2-4.0); Potassium, Blood 4.5 mmol/L (3.5-5.5)
[2023-02-01 06:58] VITALS: BP 108/62
[2023-02-01 07:51] VITALS: BP 112/70
[2023-02-01 15:57] VITALS: BP 110/70
--- NOTE | 2023-02-01 18:46 | NUR ---
SHIFT SUMMARY 0700 PT ADMITTED TO 353 DURING SHIFT REPORT. PT ADMITTED FOR RESP FAILURE. PT C/O GARCIA AFTER ADMISSION. MEDICATED PER EMAR. PT REPORTED IT EFFECTIVE, PT AWAKE MOST OF THE DAY, SITTING UP TO EOB. CALLS FREQUENTLY FOR RT TX'S. PT UP TO BTHRM INDEPENDENTLY. PT IS IRRITABLE AND IMPATIENT AT TIMES. PT WANTING TO GO HOME SHORTLY AFTER ADMISSION. PT REPORTED THAT HE IS A SMOKER; 3 PACKS PER DAY. PT ENCOURAGED TO STOP SMOKING AND OFFERED EDU; PT REFUSED. PT'S CALLED TO [facility] AND REQUEST INFORMATION FOR HOSPICE. PT AND WANTING PT TO GO ON HOSPICE. PALLIATIVE CARE CONSULT PLACED. REPORTED SOMEONE FROM HOSPICE CONTACTED HER TODAY AND WILL TALK WITH HER AGAIN TOMORROW. HERE VISITING WITH PT AT THIS TIME. PT SITTING ON EOB, WATCHING TV WITH . CALL LT IN REACH.
[2023-02-01 19:37] VITALS: BP 105/63
[2023-02-02 02:33] VITALS: BP 98/60
[2023-02-02 05:05] LABS: BASOPHILS ABSOLUTE AUTO 0.01 K/mm3 (0.00-0.23); BASOPHILS PERCENT AUTO 0 % (0-2); EOSINOPHILS PERCENT AUTO 0 % (0-6); Hematocrit 37.7 % (37.0-53.0); Hemoglobin 11.8 g/dL (13.5-17.5); IMMATURE GRAN ABSOLUTE AUTO 0.04 K/mm3 (0.00-0.10); IMMATURE GRAN PERCENT AUTO 1 % (0-1); LYMPHOCYTES ABSOLUTE AUTO 0.24 K/mm3 (0.84-5.20); LYMPHOCYTES PERCENT AUTO 3 % (21-46); MONOCYTES ABSOLUTE AUTO 0.26 K/mm3 (0.16-1.47); MONOCYTES PERCENT AUTO 3 % (4-13); Mean Corpuscular HGB 26.9 pg (26.0-34.0); Mean Corpuscular HGB Conc 31.3 g/dL (31.5-36.5); Mean Corpuscular Volume 86 fL (80-100); Mean Platelet Volume 8.2 fL (9.1-12.4); NEUTROPHILS ABSOLUTE AUTO 7.95 K/mm3 (1.96-9.15); NEUTROPHILS PERCENT AUTO 94 % (41-73); Platelet Count 529 K/mm3 (150-400); RDW Coefficient Variation 17.2 % (11.7-14.2); RDW Standard Deviation 54.7 fL (35.1-46.3); Red Blood Cell Count 4.38 M/mm3 (4.30-5.90)
--- NOTE | 2023-02-02 05:22 | NUR ---
SHIFT SUMMARY: PT A&O X4. PT IRRITABLE AND ANXIOUS THROUGHOUT SHIFT. PT ASKED FOR NICOTINE PATCH EARLY IN THE SHIFT. 21 MG PLACED BEHIND R. SHOULDER. PT RECEIVED FIRST BREATHING TREATMENT AT 2333 AND CONSTANTLY ASKED FOR MORE EVERY 30-45 MINUTES. PT BECAME ANGRY WHEN STATING HE ALREADY HAD AND COULD NOT FOR SEVERAL MORE HOURS IT IS EVERY 4 HOURS. PT RECEIVED PRN TYLENOL FOR 8/10 HEADACHE. PT C/O SOB THROUGHOUT SHIFT. PT STATED SEVERAL TIMES THAT HE IS GOING TO WALK OUT IF WE DONT DO WHAT HE WANTS. PT ON 3L 02 MAINTAINING SATS >92%. PT INDEPENDENT IN ROOM. SOLU-MEDROL GIVEN Q6. PT TOLERATING WELL. PT REMAINS ON TELE RUNNING SINUS RHYTHM. PT SLIGHTLY HYPOTENSIVE THIS SHIFT. CALL LIGHT IN REACH. BED IN LOWEST POSITION. WILL CONTINUE TO MONITOR.
[2023-02-02 05:35] LABS: Albumin, Blood 3.2 g/dL (3.4-5.0); Albumin/Globulin Ratio 0.9 (0.8-1.8); Bilirubin, Total 0.2 mg/dL (0.1-1.0); Bun/Creatinine Ratio 36.9 (12.0-20.0); Calcium, Blood 9.1 mg/dL (8.5-10.1); Creatinine, Blood 0.6 mg/dL (0.60-1.20); Globulin, Blood 3.4 g/dL (2.2-4.0); Potassium, Blood 4.5 mmol/L (3.5-5.5); Total Protein, Blood 6.6 g/dL (6.4-8.2)
[2023-02-02 05:44] LABS: Base Excess Venous 1.8 mmol/L; PCO2 Venous 38.2 mmHg (38-42); pH Blood Venous 7.44 (7.34-7.37)
[2023-02-02 07:28] VITALS: BP 110/65
[2023-02-02 15:35] VITALS: BP 109/69
--- NOTE | 2023-02-02 18:36 | NUR ---
SHIFT SUMMARY PT AWAKE DURING SHIFT REPORT, SITTING UP IN BED WATCHING TV. PT IMPROVING SLIGHTLY; NOT SOB YESTERDAY. LUNGS T/O WITH FAINT WHEEZES THRU OUT. PT WANTING TO GO HOME TOMORROW. DR ADAMES IN TO SEE PT AND DISCUSS PLAN OF CARE. IV STEROIDS CHANGED TO PO TODAY AND IV ABX TO CHANGE TOMORROW. PT UP INDEPENDENTLY IN AND TO SHAW. PT'S IN AGAIN THIS EVENING TO VISIT. DENIED FURTHER NEEDS. CALL LT IN REACH.
[2023-02-02 19:46] VITALS: BP 101/65
[2023-02-03 04:24] VITALS: BP 121/70
--- NOTE | 2023-02-03 05:10 | NUR ---
SHIFT SUMMARY: PT A&O X4. PT MOSTLY PLEASANT THIS SHIFT. AROUND 0300, PT STARTED WALKING IN SHAW DEMANDING ORDERS. HE WANTED TYLENOL, A BREATHING TREATMENT, INHALER, FOOD, COUGH MEDICINE. EXPLAINED TO PT THAT HE COULD NOT HAVE BREATHING TREATMENT FOR ANOTHER 30 MIN AND PT WAS VERY UPSET, RIPPED TELE OFF, AND STATED HE WAS GOING TO CALL SOMEONE ELSE TO GIVE HIM WHAT HE WANTED. TYLENOL GIVEN PRN FOR HEADACHE. VITALS TAKEN WNL. PT POSS D/C DAY SHIFT. CALL LIGHT IN REACH. BED IN LOWEST POSITION. WILL CONTINUE TO MONITOR.
[2023-02-03 07:25] VITALS: BP 112/68
[2023-02-03] MEDS ORDERED: Ventolin5 MG/1 ML INH (10:04)
[2023-02-03] MEDS ORDERED: ASPIR 8181 M1 PO (10:06)
[2023-02-03] MEDS ORDERED: AZIT250 PO (10:07)
[2023-02-03] MEDS ORDERED: PRED20 PO (10:10)
--- NOTE | 2023-02-03 11:55 | NUR ---
PT DISCHARGED AT 1026 WITH FAMILY TO TRANSPORT. PT ESCORTED OUT VIA WHEELCHAIR. ALL PAPERWORK REVIEWED AND EDUCATIONAL MATERIAL SENT WITH PT. PT AOX4 AND COOPERATIVE OF CARE. NO DISTRESS NOTED.
== END 2023-02-03 10:26 | disposition home or self-care (01) | DRG 189 ==
LOC: ER 01:09 → MEDS 06:04 → ENPENDDIS 02-03 09:13 → MEDS 02-03 10:26
PROVIDERS: Internal Medicine; Student in an Organized Health Care Education/Training Program; ADMIT Internal Medicine
DX: J96.01 Acute respiratory failure with hypoxia (principal); J44.1 Chronic obstructive pulmonary disease with (acute) exacerbation; I50.32 Chronic diastolic (congestive) heart failure; I11.0 Hypertensive heart disease with heart failure; Z66 Do not resuscitate; Z91.148 Patient's other noncompliance with medication regimen for other reason; K59.09 Other constipation; I25.10 Atherosclerotic heart disease of native coronary artery without angina pectoris; F17.210 Nicotine dependence, cigarettes, uncomplicated; I27.20 Pulmonary hypertension, unspecified; I25.2 Old myocardial infarction; Z99.81 Dependence on supplemental oxygen; Z90.49 Acquired absence of other specified parts of digestive tract; Z95.5 Presence of coronary angioplasty implant and graft; Z98.890 Other specified postprocedural states; Z85.118 Personal history of other malignant neoplasm of bronchus and lung; Z79.82 Long term (current) use of aspirin; Z79.899 Other long term (current) drug therapy
CPT/HCPCS: 36415; 71046; 80053; 82803; 84145; 84484; 85025; 94640; 94644; 94645; 94664; 94760; 94762; 96374; 99285-25; A9270; J0456; J1650; J2930; J7050; J7512

== ENCOUNTER 2023-02-15 08:34 | Emergency (ER) | payer OTHER ==
[~2023-02-15] VITALS: Ht 177.8 cm; Wt 70.3 kg
[~2023-02-15 08:34] MED LIST changes: +ASPIR 8181 M1 PO; +AZIT250 PO
[2023-02-15 09:30] VITALS: BP 114/73
[2023-02-15] MEDS ORDERED: IPRAT-ALBUT 0.5-3 ML INH (10:11)
== END 2023-02-15 10:21 | disposition home or self-care (01) ==
LOC: ER 08:34
DX: J44.9 Chronic obstructive pulmonary disease, unspecified (principal); Z79.899 Other long term (current) drug therapy; Z79.82 Long term (current) use of aspirin; I10 Essential (primary) hypertension; F17.210 Nicotine dependence, cigarettes, uncomplicated
CPT/HCPCS: 71046; 94640; 94664; 99285-25

== ENCOUNTER 2023-02-17 14:09 | Emergency (ER) | payer OTHER ==
[~2023-02-17] VITALS: Ht 177.8 cm; Wt 68.0 kg
[2023-02-17 14:26] VITALS: BP 119/72
[2023-02-17 14:46] LABS: BASOPHILS PERCENT AUTO 0 % (0-2); EOSINOPHILS ABSOLUTE AUTO 0.08 K/mm3 (0.00-0.68); EOSINOPHILS PERCENT AUTO 1 % (0-6); Hematocrit 40.5 % (37.0-53.0); Hemoglobin 12.8 g/dL (13.5-17.5); IMMATURE GRAN ABSOLUTE AUTO 0.04 K/mm3 (0.00-0.10); IMMATURE GRAN PERCENT AUTO 0 % (0-1); LYMPHOCYTES ABSOLUTE AUTO 0.22 K/mm3 (0.84-5.20); LYMPHOCYTES PERCENT AUTO 2 % (21-46); MONOCYTES ABSOLUTE AUTO 0.18 K/mm3 (0.16-1.47); MONOCYTES PERCENT AUTO 2 % (4-13); Mean Corpuscular HGB 26.8 pg (26.0-34.0); Mean Corpuscular HGB Conc 31.6 g/dL (31.5-36.5); Mean Corpuscular Volume 85 fL (80-100); Mean Platelet Volume 7.9 fL (9.1-12.4); NEUTROPHILS ABSOLUTE AUTO 8.73 K/mm3 (1.96-9.15); NEUTROPHILS PERCENT AUTO 94 % (41-73); Platelet Count 383 K/mm3 (150-400); RDW Coefficient Variation 18.2 % (11.7-14.2); RDW Standard Deviation 56.5 fL (35.1-46.3); Red Blood Cell Count 4.77 M/mm3 (4.30-5.90); White Blood Cell Count 9.25 K/mm3 (4.00-11.30)
[2023-02-17 15:11] LABS: Albumin, Blood 3.9 g/dL (3.4-5.0); Albumin/Globulin Ratio 1.4 (0.8-1.8); Bilirubin, Total 0.6 mg/dL (0.1-1.0); Bun/Creatinine Ratio 25.7 (12.0-20.0); Calcium, Blood 8.7 mg/dL (8.5-10.1); Creatinine, Blood 0.66 mg/dL (0.60-1.20); Globulin, Blood 2.8 g/dL (2.2-4.0); Potassium, Blood 4.1 mmol/L (3.5-5.5); Total Protein, Blood 6.7 g/dL (6.4-8.2)
[2023-02-17] MEDS ORDERED: Prednisone20 MG PO (18:43)
== END 2023-02-17 16:09 | disposition left against medical advice (07) ==
LOC: ER 14:09
PROVIDERS: Emergency Medicine
DX: R06.02 Shortness of breath (principal); Z53.21 Procedure and treatment not carried out due to patient leaving prior to being seen by health care provider
CPT/HCPCS: 71046; 80053; 84484; 85025

== ENCOUNTER 2023-02-21 10:15 | Emergency (ER) | payer OTHER ==
[~2023-02-21] VITALS: Ht 177.8 cm; Wt 72.6 kg
[2023-02-21 10:23] VITALS: BP 137/82
[2023-02-21] MEDS ORDERED: ALBU2.5V5 INH (10:41)
[2023-02-21] MEDS ORDERED: Ventolin5 MG/1 ML INH (12:47)
== END 2023-02-21 10:50 | disposition home or self-care (01) ==
LOC: ER 10:15
DX: Z76.0 Encounter for issue of repeat prescription (principal); J44.9 Chronic obstructive pulmonary disease, unspecified; I10 Essential (primary) hypertension; I25.2 Old myocardial infarction; F17.210 Nicotine dependence, cigarettes, uncomplicated
CPT/HCPCS: 99281

== ENCOUNTER 2023-02-21 14:58 | Emergency (ER) | payer OTHER ==
[~2023-02-21] VITALS: Ht 177.8 cm; Wt 70.3 kg
[2023-02-21 15:26] VITALS: BP 150/95
== END 2023-02-21 16:55 | disposition home or self-care (01) ==
LOC: ER 14:58
DX: J44.9 Chronic obstructive pulmonary disease, unspecified (principal); Z79.899 Other long term (current) drug therapy; Z79.82 Long term (current) use of aspirin; Z79.52 Long term (current) use of systemic steroids; I10 Essential (primary) hypertension; Z87.891 Personal history of nicotine dependence
CPT/HCPCS: 94644; 94664

== ENCOUNTER 2023-02-25 03:12 | Emergency (ER) | payer OTHER ==
[~2023-02-25] VITALS: Ht 177.8 cm; Wt 72.6 kg
[2023-02-25] MEDS ORDERED: ALBU90OI INH (03:46)
[2023-02-25 03:59] VITALS: BP 131/83
[2023-03-09] MEDS ORDERED: SYMBICORT 80-10.2 GM INH (10:02)
[2023-03-09] MEDS ORDERED: Prednisone20 MG PO (10:19)
[2023-03-11] MEDS ORDERED: LAVAP4L PO (13:43)
[2023-03-15] MEDS ORDERED: AZIT250 PO (18:53)
[2023-03-16] MEDS ORDERED: Mucinex600 MG PO (04:43)
[2023-03-16] MEDS ORDERED: HYDPAM50 PO ×2 (09:44→10:05)
[2023-03-22] MEDS ORDERED: MIRALAX1714 PO (10:01)
[2023-03-22] MEDS ORDERED: SENNA LAXATIVE8.6 MG PO (10:01)
== END 2023-02-25 03:58 | disposition home or self-care (01) ==
LOC: ER 03:12
DX: J44.9 Chronic obstructive pulmonary disease, unspecified (principal); Z79.899 Other long term (current) drug therapy; Z79.82 Long term (current) use of aspirin; Z79.52 Long term (current) use of systemic steroids; I25.2 Old myocardial infarction; I10 Essential (primary) hypertension; F17.210 Nicotine dependence, cigarettes, uncomplicated
CPT/HCPCS: 93005; 93010; 94640; 94664; 99283-25

== ENCOUNTER 2023-02-28 11:25 | Emergency (ER) | payer OTHER ==
[~2023-02-28] VITALS: Ht 177.8 cm; Wt 72.6 kg
[2023-02-28 11:47] LABS: BASOPHILS ABSOLUTE AUTO 0.01 K/mm3 (0.00-0.23); BASOPHILS PERCENT AUTO 0 % (0-2); EOSINOPHILS ABSOLUTE AUTO 0.08 K/mm3 (0.00-0.68); EOSINOPHILS PERCENT AUTO 1 % (0-6); Hematocrit 41.3 % (37.0-53.0); IMMATURE GRAN ABSOLUTE AUTO 0.07 K/mm3 (0.00-0.10); IMMATURE GRAN PERCENT AUTO 1 % (0-1); LYMPHOCYTES ABSOLUTE AUTO 0.58 K/mm3 (0.84-5.20); LYMPHOCYTES PERCENT AUTO 7 % (21-46); MONOCYTES ABSOLUTE AUTO 0.56 K/mm3 (0.16-1.47); MONOCYTES PERCENT AUTO 7 % (4-13); Mean Corpuscular HGB 26.9 pg (26.0-34.0); Mean Corpuscular HGB Conc 31.5 g/dL (31.5-36.5); Mean Corpuscular Volume 86 fL (80-100); NEUTROPHILS ABSOLUTE AUTO 6.65 K/mm3 (1.96-9.15); NEUTROPHILS PERCENT AUTO 84 % (41-73); Platelet Count 344 K/mm3 (150-400); RDW Coefficient Variation 20.2 % (11.7-14.2); RDW Standard Deviation 60.7 fL (35.1-46.3); Red Blood Cell Count 4.83 M/mm3 (4.30-5.90); White Blood Cell Count 7.95 K/mm3 (4.00-11.30)
[2023-02-28 12:07] LABS: Albumin, Blood 3.6 g/dL (3.4-5.0); Albumin/Globulin Ratio 1.2 (0.8-1.8); Bilirubin, Total 0.2 mg/dL (0.1-1.0); Bun/Creatinine Ratio 31.4 (12.0-20.0); Calcium, Blood 8.9 mg/dL (8.5-10.1); Creatinine, Blood 0.64 mg/dL (0.60-1.20); Globulin, Blood 2.9 g/dL (2.2-4.0); Potassium, Blood 3.7 mmol/L (3.5-5.5); Total Protein, Blood 6.5 g/dL (6.4-8.2)
[2023-02-28 13:53] VITALS: BP 119/76
[2023-02-28] MEDS ORDERED: METPRE4DP PO (14:25)
== END 2023-02-28 14:31 | disposition home or self-care (01) ==
LOC: ER 11:25
PROVIDERS: Emergency Medicine
DX: J44.1 Chronic obstructive pulmonary disease with (acute) exacerbation (principal); F17.210 Nicotine dependence, cigarettes, uncomplicated; Z79.899 Other long term (current) drug therapy; Z79.52 Long term (current) use of systemic steroids
CPT/HCPCS: 71046; 80053; 84484; 85025; 94640; 94664; 96374; 99285-25; J2930

== ENCOUNTER 2023-03-13 06:58 | Emergency (ER) | payer OTHER ==
[~2023-03-13] VITALS: Ht 177.8 cm; Wt 77.1 kg
[~2023-03-13 06:58] MED LIST changes: +METPRE4DP PO; +SYMBICORT 80-10.2 GM INH
[2023-03-13 08:18] LABS: BASOPHILS ABSOLUTE AUTO 0.01 K/mm3 (0.00-0.23); BASOPHILS PERCENT AUTO 0 % (0-2); EOSINOPHILS ABSOLUTE AUTO 0.01 K/mm3 (0.00-0.68); EOSINOPHILS PERCENT AUTO 0 % (0-6); Hematocrit 39.3 % (37.0-53.0); Hemoglobin 12.5 g/dL (13.5-17.5); IMMATURE GRAN ABSOLUTE AUTO 0.02 K/mm3 (0.00-0.10); IMMATURE GRAN PERCENT AUTO 0 % (0-1); LYMPHOCYTES ABSOLUTE AUTO 0.15 K/mm3 (0.84-5.20); LYMPHOCYTES PERCENT AUTO 3 % (21-46); MONOCYTES ABSOLUTE AUTO 0.12 K/mm3 (0.16-1.47); MONOCYTES PERCENT AUTO 3 % (4-13); Mean Corpuscular HGB 27.3 pg (26.0-34.0); Mean Corpuscular HGB Conc 31.8 g/dL (31.5-36.5); Mean Corpuscular Volume 86 fL (80-100); Mean Platelet Volume 7.9 fL (9.1-12.4); NEUTROPHILS ABSOLUTE AUTO 4.55 K/mm3 (1.96-9.15); NEUTROPHILS PERCENT AUTO 94 % (41-73); Platelet Count 415 K/mm3 (150-400); RDW Coefficient Variation 21.5 % (11.7-14.2); RDW Standard Deviation 67.1 fL (35.1-46.3); Red Blood Cell Count 4.58 M/mm3 (4.30-5.90); White Blood Cell Count 4.86 K/mm3 (4.00-11.30)
[2023-03-13 08:30] VITALS: BP 120/72
[2023-03-13 08:41] LABS: Albumin, Blood 3.2 g/dL (3.4-5.0); Bilirubin, Total 0.2 mg/dL (0.1-1.0); Bun/Creatinine Ratio 23.1 (12.0-20.0); Calcium, Blood 8.9 mg/dL (8.5-10.1); Creatinine, Blood 0.65 mg/dL (0.60-1.20); Globulin, Blood 3.2 g/dL (2.2-4.0); Potassium, Blood 4.2 mmol/L (3.5-5.5); Total Protein, Blood 6.4 g/dL (6.4-8.2)
[2023-03-13 09:00] LABS: Influenza A, PCR NEGATIVE (NEGATIVE); Influenza B, PCR NEGATIVE (NEGATIVE); Resp Syncytial Virus, PCR NEGATIVE (NEGATIVE); SARS-Cov-2 (COVID-19) PCR, MMC NEGATIVE (NEGATIVE)
[2023-03-13] MEDS ORDERED: Prednisone20 MG PO (17:09)
[2023-03-15] MEDS ORDERED: AZIT250 PO (18:53)
[2023-03-16] MEDS ORDERED: Mucinex600 MG PO (04:43)
[2023-03-16] MEDS ORDERED: HYDPAM50 PO ×2 (09:44→10:05)
[2023-03-22] MEDS ORDERED: SENNA LAXATIVE8.6 MG PO (10:01)
[2023-03-22] MEDS ORDERED: MIRALAX1714 PO (10:01)
== END 2023-03-13 08:54 | disposition left against medical advice (07) ==
LOC: ER 06:58
PROVIDERS: Emergency Medicine
DX: R07.9 Chest pain, unspecified (principal); J44.9 Chronic obstructive pulmonary disease, unspecified; I25.2 Old myocardial infarction; I10 Essential (primary) hypertension; F17.210 Nicotine dependence, cigarettes, uncomplicated; Z85.118 Personal history of other malignant neoplasm of bronchus and lung; Z20.822 Contact with and (suspected) exposure to COVID-19; Z79.51 Long term (current) use of inhaled steroids; Z79.899 Other long term (current) drug therapy
CPT/HCPCS: 0241U; 71046; 80053; 83880; 84484; 85025; 85379; 93005; 93010; 94640; 94664; 99285-25

== ENCOUNTER 2023-03-16 13:37 | Emergency (ER) | payer OTHER ==
[~2023-03-16] VITALS: Ht 177.8 cm; Wt 68.0 kg
[~2023-03-16 13:37] MED LIST changes: +Mucinex600 MG PO
[2023-03-16 13:48] VITALS: BP 143/80
[2023-03-22] MEDS ORDERED: MIRALAX1714 PO (10:01)
[2023-03-22] MEDS ORDERED: SENNA LAXATIVE8.6 MG PO (10:01)
== END 2023-03-16 15:22 | disposition left against medical advice (07) ==
LOC: ER 13:37
DX: R06.02 Shortness of breath (principal); I10 Essential (primary) hypertension; I25.2 Old myocardial infarction; J44.9 Chronic obstructive pulmonary disease, unspecified; F17.210 Nicotine dependence, cigarettes, uncomplicated; Z79.82 Long term (current) use of aspirin; Z79.51 Long term (current) use of inhaled steroids; Z85.118 Personal history of other malignant neoplasm of bronchus and lung; Z79.899 Other long term (current) drug therapy
CPT/HCPCS: 99284

== ENCOUNTER 2023-03-16 18:03 | Emergency (ER) | payer OTHER ==
[~2023-03-16] VITALS: Ht 177.8 cm; Wt 68.0 kg
[2023-03-16 18:29] VITALS: BP 133/69
[2023-03-22] MEDS ORDERED: SENNA LAXATIVE8.6 MG PO (10:01)
[2023-03-22] MEDS ORDERED: MIRALAX1714 PO (10:01)
== END 2023-03-16 19:25 | disposition left against medical advice (07) ==
LOC: ER 18:03
DX: Z53.21 Procedure and treatment not carried out due to patient leaving prior to being seen by health care provider (principal)

== ENCOUNTER 2023-03-19 04:34 | Emergency (ER) | payer OTHER ==
[~2023-03-19] VITALS: Ht 177.8 cm; Wt 68.0 kg
[2023-03-19 04:59] VITALS: BP 160/87
[2023-03-22] MEDS ORDERED: SENNA LAXATIVE8.6 MG PO (10:01)
[2023-03-22] MEDS ORDERED: MIRALAX1714 PO (10:01)
[2023-04-17] MEDS ORDERED: PRED20 PO ×2 (15:26→15:28)
== END 2023-03-19 06:48 | disposition home or self-care (01) ==
LOC: ER 04:34
DX: Z53.21 Procedure and treatment not carried out due to patient leaving prior to being seen by health care provider (principal); I25.2 Old myocardial infarction; I10 Essential (primary) hypertension; F17.200 Nicotine dependence, unspecified, uncomplicated; Z85.118 Personal history of other malignant neoplasm of bronchus and lung
CPT/HCPCS: 94640; 94664

== ENCOUNTER 2023-03-31 09:21 | Emergency (ER) | payer OTHER ==
[~2023-03-31] VITALS: Ht 177.8 cm; Wt 68.0 kg
[~2023-03-31 09:21] MED LIST changes: +MIRALAX1714 PO; +SENNA LAXATIVE8.6 MG PO
[2023-03-31 09:55] VITALS: BP 115/70
[2023-03-31] MEDS ORDERED: Mucinex600 MG PO (09:58)
== END 2023-03-31 10:00 | disposition home or self-care (01) ==
LOC: ER 09:21
DX: R06.02 Shortness of breath (principal); I25.2 Old myocardial infarction; I10 Essential (primary) hypertension; J44.9 Chronic obstructive pulmonary disease, unspecified; F17.210 Nicotine dependence, cigarettes, uncomplicated; Z85.118 Personal history of other malignant neoplasm of bronchus and lung; Z79.82 Long term (current) use of aspirin; Z79.51 Long term (current) use of inhaled steroids; Z79.899 Other long term (current) drug therapy
CPT/HCPCS: 99284

== ENCOUNTER 2023-03-31 14:46 | Emergency (ER) | payer OTHER ==
[~2023-03-31] VITALS: Ht 177.8 cm; Wt 68.0 kg
[2023-03-31 15:32] VITALS: BP 106/70
== END 2023-03-31 15:35 | disposition home or self-care (01) ==
LOC: ER 14:46
DX: Z00.00 Encounter for general adult medical examination without abnormal findings (principal); I25.2 Old myocardial infarction; I10 Essential (primary) hypertension; J44.9 Chronic obstructive pulmonary disease, unspecified; F17.210 Nicotine dependence, cigarettes, uncomplicated; Z85.118 Personal history of other malignant neoplasm of bronchus and lung; Z79.82 Long term (current) use of aspirin; Z79.51 Long term (current) use of inhaled steroids; Z79.899 Other long term (current) drug therapy
CPT/HCPCS: 99284

== ENCOUNTER 2023-04-09 15:38 | Emergency (ER) | payer OTHER ==
[~2023-04-09] VITALS: Ht 177.8 cm; Wt 68.0 kg
[2023-04-09 15:45] VITALS: BP 135/71
[2023-04-09 16:18] LABS: BASOPHILS ABSOLUTE AUTO 0.06 K/mm3 (0.00-0.23); BASOPHILS PERCENT AUTO 1 % (0-2); EOSINOPHILS ABSOLUTE AUTO 0.19 K/mm3 (0.00-0.68); EOSINOPHILS PERCENT AUTO 3 % (0-6); Hematocrit 37.8 % (37.0-53.0); IMMATURE GRAN ABSOLUTE AUTO 0.12 K/mm3 (0.00-0.10); IMMATURE GRAN PERCENT AUTO 2 % (0-1); LYMPHOCYTES ABSOLUTE AUTO 0.88 K/mm3 (0.84-5.20); LYMPHOCYTES PERCENT AUTO 12 % (21-46); MONOCYTES ABSOLUTE AUTO 1.06 K/mm3 (0.16-1.47); MONOCYTES PERCENT AUTO 14 % (4-13); Mean Corpuscular HGB 27.9 pg (26.0-34.0); Mean Corpuscular HGB Conc 31.7 g/dL (31.5-36.5); Mean Corpuscular Volume 88 fL (80-100); NEUTROPHILS ABSOLUTE AUTO 5.35 K/mm3 (1.96-9.15); NEUTROPHILS PERCENT AUTO 70 % (41-73); Platelet Count 462 K/mm3 (150-400); RDW Coefficient Variation 22.7 % (11.7-14.2); RDW Standard Deviation 72.4 fL (35.1-46.3); White Blood Cell Count 7.66 K/mm3 (4.00-11.30)
[2023-04-09 16:42] LABS: Albumin, Blood 3.4 g/dL (3.4-5.0); Albumin/Globulin Ratio 1.1 (0.8-1.8); Bilirubin, Total 0.4 mg/dL (0.1-1.0); Bun/Creatinine Ratio 31.4 (12.0-20.0); Calcium, Blood 8.7 mg/dL (8.5-10.1); Creatinine, Blood 0.57 mg/dL (0.60-1.20); Potassium, Blood 4.2 mmol/L (3.5-5.5); Total Protein, Blood 6.4 g/dL (6.4-8.2)
== END 2023-04-09 17:20 | disposition home or self-care (01) ==
LOC: ER 15:38
PROVIDERS: Physician Assistant
DX: J44.1 Chronic obstructive pulmonary disease with (acute) exacerbation (principal); F17.210 Nicotine dependence, cigarettes, uncomplicated; Z95.5 Presence of coronary angioplasty implant and graft; I25.2 Old myocardial infarction; I10 Essential (primary) hypertension; Z79.82 Long term (current) use of aspirin; Z79.51 Long term (current) use of inhaled steroids; Z79.890 Hormone replacement therapy
CPT/HCPCS: 71046; 80053; 84484; 85025; 93005; 93010; 99285-25

== ENCOUNTER 2023-04-10 07:32 | Emergency (ER) | payer OTHER ==
[~2023-04-10] VITALS: Ht 177.8 cm; Wt 68.0 kg
[2023-04-10 08:02] VITALS: BP 145/80
[2023-04-10 08:46] LABS: BASOPHILS ABSOLUTE AUTO 0.08 K/mm3 (0.00-0.23); BASOPHILS PERCENT AUTO 1 % (0-2); EOSINOPHILS ABSOLUTE AUTO 0.28 K/mm3 (0.00-0.68); EOSINOPHILS PERCENT AUTO 3 % (0-6); Hematocrit 40.5 % (37.0-53.0); Hemoglobin 12.7 g/dL (13.5-17.5); IMMATURE GRAN ABSOLUTE AUTO 0.11 K/mm3 (0.00-0.10); IMMATURE GRAN PERCENT AUTO 1 % (0-1); LYMPHOCYTES ABSOLUTE AUTO 0.57 K/mm3 (0.84-5.20); LYMPHOCYTES PERCENT AUTO 7 % (21-46); MONOCYTES ABSOLUTE AUTO 0.99 K/mm3 (0.16-1.47); MONOCYTES PERCENT AUTO 12 % (4-13); Mean Corpuscular HGB 27.4 pg (26.0-34.0); Mean Corpuscular HGB Conc 31.4 g/dL (31.5-36.5); Mean Corpuscular Volume 88 fL (80-100); NEUTROPHILS ABSOLUTE AUTO 6.29 K/mm3 (1.96-9.15); NEUTROPHILS PERCENT AUTO 76 % (41-73); Platelet Count 428 K/mm3 (150-400); RDW Standard Deviation 71.7 fL (35.1-46.3); Red Blood Cell Count 4.63 M/mm3 (4.30-5.90); White Blood Cell Count 8.32 K/mm3 (4.00-11.30)
[2023-04-10 09:15] LABS: Albumin, Blood 3.4 g/dL (3.4-5.0); Albumin/Globulin Ratio 1.1 (0.8-1.8); Bilirubin, Total 0.4 mg/dL (0.1-1.0); Bun/Creatinine Ratio 25.9 (12.0-20.0); Calcium, Blood 8.7 mg/dL (8.5-10.1); Creatinine, Blood 0.5 mg/dL (0.60-1.20); Potassium, Blood 4.5 mmol/L (3.5-5.5); Total Protein, Blood 6.4 g/dL (6.4-8.2)
[2023-04-17] MEDS ORDERED: PRED20 PO ×2 (15:26→15:28)
== END 2023-04-10 09:40 | disposition home or self-care (01) ==
LOC: ER 07:32
PROVIDERS: Student in an Organized Health Care Education/Training Program
DX: J44.1 Chronic obstructive pulmonary disease with (acute) exacerbation (principal); R06.00 Dyspnea, unspecified; Z79.899 Other long term (current) drug therapy; Z79.82 Long term (current) use of aspirin; I25.2 Old myocardial infarction; I10 Essential (primary) hypertension; F17.210 Nicotine dependence, cigarettes, uncomplicated
CPT/HCPCS: 80053; 84484; 85025; 93005; 93010; 94640; 94664; 96374; 99285-25; J2930

== ENCOUNTER 2023-04-10 16:19 | Emergency (ER) | payer OTHER ==
[~2023-04-10] VITALS: Ht 177.8 cm; Wt 68.0 kg
[2023-04-10 16:39] VITALS: BP 125/61
== END 2023-04-10 17:15 | disposition home or self-care (01) ==
LOC: ER 16:19
DX: J44.9 Chronic obstructive pulmonary disease, unspecified (principal); Z79.899 Other long term (current) drug therapy; Z79.82 Long term (current) use of aspirin; I25.2 Old myocardial infarction; I10 Essential (primary) hypertension; F17.210 Nicotine dependence, cigarettes, uncomplicated
CPT/HCPCS: 99284

== ENCOUNTER 2023-04-12 01:33 | Emergency (ER) | payer OTHER ==
[~2023-04-12] VITALS: Ht 177.8 cm; Wt 68.0 kg
[2023-04-12 01:43] VITALS: BP 118/76
[2023-04-12] MEDS ORDERED: Ventolin5 MG/1 ML INH (01:52)
== END 2023-04-12 02:12 | disposition home or self-care (01) ==
LOC: ER 01:33
DX: J42 Unspecified chronic bronchitis (principal); I25.2 Old myocardial infarction; I10 Essential (primary) hypertension; F17.210 Nicotine dependence, cigarettes, uncomplicated; Z85.118 Personal history of other malignant neoplasm of bronchus and lung; Z79.82 Long term (current) use of aspirin; Z79.51 Long term (current) use of inhaled steroids; Z79.899 Other long term (current) drug therapy
CPT/HCPCS: 99285

== ENCOUNTER 2023-04-12 06:38 | Emergency (ER) | payer OTHER ==
[~2023-04-12] VITALS: Ht 177.8 cm; Wt 77.1 kg
[2023-04-12 07:00] VITALS: BP 124/79
== END 2023-04-12 08:04 | disposition home or self-care (01) ==
LOC: ER 06:38
DX: Z76.0 Encounter for issue of repeat prescription (principal); Z79.899 Other long term (current) drug therapy; Z79.82 Long term (current) use of aspirin; I10 Essential (primary) hypertension; J44.9 Chronic obstructive pulmonary disease, unspecified; F17.210 Nicotine dependence, cigarettes, uncomplicated
CPT/HCPCS: A9270

== ENCOUNTER 2023-04-15 14:21 | Emergency (ER) | payer OTHER ==
[~2023-04-15] VITALS: Ht 177.8 cm; Wt 68.0 kg
[2023-04-15 14:55] VITALS: BP 109/74
[2023-04-17] MEDS ORDERED: PRED20 PO ×2 (15:26→15:28)
== END 2023-04-15 15:06 | disposition left against medical advice (07) ==
LOC: ER 14:21
DX: R06.02 Shortness of breath (principal); Z53.21 Procedure and treatment not carried out due to patient leaving prior to being seen by health care provider; I25.2 Old myocardial infarction; I10 Essential (primary) hypertension; Z85.118 Personal history of other malignant neoplasm of bronchus and lung; Z87.891 Personal history of nicotine dependence
CPT/HCPCS: 99281

== ENCOUNTER 2023-05-01 06:40 | Emergency (ER) | payer OTHER ==
[~2023-05-01] VITALS: Ht 177.8 cm; Wt 68.0 kg
[2023-05-01 07:32] VITALS: BP 127/79
== END 2023-05-01 07:58 ==
LOC: ER 06:40
DX: R06.02 Shortness of breath (principal); Z53.21 Procedure and treatment not carried out due to patient leaving prior to being seen by health care provider
CPT/HCPCS: 93005; 93010

== ENCOUNTER 2023-05-17 02:05 | Emergency (ER) | payer OTHER ==
[~2023-05-17] VITALS: Ht 172.7 cm; Wt 81.7 kg
[2023-05-17 15:45] VITALS: BP 117/69
[2023-05-17 19:17] VITALS: BP 109/69
[2023-05-18 02:24] VITALS: BP 118/75
== END 2023-05-17 02:35 | disposition left against medical advice (07) ==
LOC: ER 02:05
DX: Z53.21 Procedure and treatment not carried out due to patient leaving prior to being seen by health care provider (principal); I25.2 Old myocardial infarction; I10 Essential (primary) hypertension; Z85.118 Personal history of other malignant neoplasm of bronchus and lung
CPT/HCPCS: 93005; 93010

== ENCOUNTER 2023-05-17 09:29 | Observation (INO) | payer OTHER ==
[~2023-05-17] VITALS: Ht 177.8 cm; Wt 67.4 kg
[2023-05-17 10:03] LABS: BASOPHILS ABSOLUTE AUTO 0.06 K/mm3 (0.00-0.23); BASOPHILS PERCENT AUTO 1 % (0-2); EOSINOPHILS ABSOLUTE AUTO 0.63 K/mm3 (0.00-0.68); EOSINOPHILS PERCENT AUTO 7 % (0-6); Hematocrit 41.9 % (37.0-53.0); Hemoglobin 13.4 g/dL (13.5-17.5); IMMATURE GRAN ABSOLUTE AUTO 0.05 K/mm3 (0.00-0.10); IMMATURE GRAN PERCENT AUTO 1 % (0-1); LYMPHOCYTES ABSOLUTE AUTO 0.97 K/mm3 (0.84-5.20); LYMPHOCYTES PERCENT AUTO 11 % (21-46); MONOCYTES ABSOLUTE AUTO 0.67 K/mm3 (0.16-1.47); MONOCYTES PERCENT AUTO 7 % (4-13); Mean Corpuscular HGB 28.8 pg (26.0-34.0); Mean Corpuscular Volume 90 fL (80-100); NEUTROPHILS PERCENT AUTO 74 % (41-73); Platelet Count 494 K/mm3 (150-400); RDW Coefficient Variation 17.2 % (11.7-14.2); RDW Standard Deviation 56.7 fL (35.1-46.3); Red Blood Cell Count 4.65 M/mm3 (4.30-5.90); White Blood Cell Count 9.08 K/mm3 (4.00-11.30)
[2023-05-17 10:20] LABS: Albumin, Blood 3.7 g/dL (3.4-5.0); Albumin/Globulin Ratio 1.3 (0.8-1.8); Bilirubin, Total 0.3 mg/dL (0.1-1.0); Bun/Creatinine Ratio 27.4 (12.0-20.0); Calcium, Blood 9.1 mg/dL (8.5-10.1); Creatinine, Blood 0.66 mg/dL (0.60-1.20); Globulin, Blood 2.9 g/dL (2.2-4.0); Potassium, Blood 4.3 mmol/L (3.5-5.5); Total Protein, Blood 6.6 g/dL (6.4-8.2)
[2023-05-17 17:12] VITALS: BP 117/69
--- NOTE | 2023-05-17 18:01 | NUR ---
PT ARRIVED TO THE UNIT. DECLINED TO PUT ON A HOSPITAL GOWN. PT ATTEMPTED TO UNPLUG TELE MONITOR. ADVISED PT TO LEAVE MONITOR IN PLACE. PT EDUCATED ON FIRE SAFTY DENIED HAVING AND IGNIION SOURCES. REQUESTED BREATHING TREATMENT. RT PROVIDED TREATMENT. PT REPORTED NOT HAVING A BM FOR APPROX 1.5 WEEKS, THEN LATER REPORTED HAVING BLACK STOOL YESTERDAY, BUT STILL FEELS CONSTIPATED. PT IS OFTEN FORGETFUL OF CONVERSATIONS.
[2023-05-17 19:30] VITALS: BP 109/69
--- NOTE | 2023-05-18 03:32 | NUR ---
END OF SHIFT SUMMARY PT UP FOR MOST THE NIGHT, MOST COMFORTABLY SLEEPING IN CHAIR/RECLINER. PT REQUESTED BREATHING TREATMENT 2x ON THIS SHIFT FOR SHORTNESS OF BREATH. PT A&O x2-3. PT WANTED TO LEAVE AMA AT BEGINNING OF THE SHIFT. PT EDUCATION PROVIDED REGARDING CURRENT HEALTH CONDITION. PT ASKED WHY HE WAS AT THE HOSPITAL, SOON PT WAS REMINDED THE SITUATION OF WHAT HAPPENED, PT AGREED TO STAY. NO C/O CHEST PAIN. PT IS NPO AFTER MIDNIGHT, HE HAS A STRESS TEST THIS MORNING. PRN HYDROXYZINE GIVEN FOR ANXIETY. PT STATED THAT HYDROXYZINE WAS EFFECTIVE. CALL LIGHT WITHIN REACH, WCTM.
[2023-05-18 05:50] LABS: BASOPHILS ABSOLUTE AUTO 0.02 K/mm3 (0.00-0.23); BASOPHILS PERCENT AUTO 0 % (0-2); EOSINOPHILS ABSOLUTE AUTO 0.11 K/mm3 (0.00-0.68); EOSINOPHILS PERCENT AUTO 1 % (0-6); Hematocrit 40.3 % (37.0-53.0); Hemoglobin 12.9 g/dL (13.5-17.5); IMMATURE GRAN ABSOLUTE AUTO 0.04 K/mm3 (0.00-0.10); IMMATURE GRAN PERCENT AUTO 1 % (0-1); LYMPHOCYTES ABSOLUTE AUTO 0.99 K/mm3 (0.84-5.20); LYMPHOCYTES PERCENT AUTO 13 % (21-46); MONOCYTES ABSOLUTE AUTO 0.86 K/mm3 (0.16-1.47); MONOCYTES PERCENT AUTO 11 % (4-13); Mean Corpuscular HGB 28.5 pg (26.0-34.0); Mean Corpuscular Volume 89 fL (80-100); Mean Platelet Volume 8.3 fL (9.1-12.4); NEUTROPHILS ABSOLUTE AUTO 5.58 K/mm3 (1.96-9.15); NEUTROPHILS PERCENT AUTO 74 % (41-73); Platelet Count 497 K/mm3 (150-400); RDW Coefficient Variation 16.8 % (11.7-14.2); RDW Standard Deviation 54.5 fL (35.1-46.3); Red Blood Cell Count 4.52 M/mm3 (4.30-5.90)
[2023-05-18 06:48] LABS: Anion Gap 3 mmol/L (6-16); Blood Urea Nitrogen 17 mg/dL (8-24); Bun/Creatinine Ratio 35.3 (12.0-20.0); CHOL/HDL RATIO 2.1; CO2, Blood 27 mmol/L (21-32); Calcium, Blood 8.8 mg/dL (8.5-10.1); Chloride, Blood 109 mmol/L (98-108); Cholesterol 151 mg/dL (50-200); Creatinine, Blood 0.48 mg/dL (0.60-1.20); Glomerular Filtration Rate 113 (60-); Glucose, Blood 125 mg/dL (70-99); HDL Cholesterol 72 mg/dL (>39); LDL/HDL RATIO 0.9; Low Density Lipoprotein Chol 65 mg/dL (0-110); Potassium, Blood 3.9 mmol/L (3.5-5.5); Sodium, Blood 139 mmol/L (136-145); Triglycerides 71 mg/dL (30-160); Very Low Density Lipoprot Chol 14 mg/dL (6-32)
[2023-05-18 07:40] VITALS: BP 113/72
--- NOTE | 2023-05-18 10:38 | NUR ---
ECHO BEING DONE IN ROOM NOW
--- NOTE | 2023-05-18 12:18 | NUR ---
PATIENT PACING IN ROOM STATING HE WANTS TO LEAVE, THIS RN REMINDED PATEINT THE IMPORTANCE TO HAVE A HEART APPOINTMENT, WAITING FOR ECHO RESULTS AND APPOINTMENT
== END 2023-05-18 12:45 | disposition home or self-care (01) ==
LOC: ER 09:29 → MEDS 09:30 → ENPENDDIS 05-18 11:01 → MEDS 05-18 12:45
PROVIDERS: Physician Assistant; Student in an Organized Health Care Education/Training Program; ADMIT Internal Medicine
DX: I20.0 Unstable angina (principal); I35.0 Nonrheumatic aortic (valve) stenosis; J44.9 Chronic obstructive pulmonary disease, unspecified; K59.00 Constipation, unspecified; F17.210 Nicotine dependence, cigarettes, uncomplicated; E78.00 Pure hypercholesterolemia, unspecified; R06.01 Orthopnea; Z95.5 Presence of coronary angioplasty implant and graft; Z99.81 Dependence on supplemental oxygen; I11.0 Hypertensive heart disease with heart failure; I50.32 Chronic diastolic (congestive) heart failure
CPT/HCPCS: 36415; 71045; 80048; 80053; 80061; 83036; 84484; 85025; 93005; 93010; 93306; 94640; 94664; 94760; 94761; 96372; 96374; 99285-25; A9270; G0378; J1650; J2930

== ENCOUNTER 2023-05-24 08:21 | Emergency (ER) | payer OTHER ==
[~2023-05-24] VITALS: Ht 165.1 cm; Wt 72.6 kg
[2023-05-24 09:44] VITALS: BP 117/75
[2023-05-24] MEDS ORDERED: Zithromax250 MG PO (10:42)
== END 2023-05-24 10:45 | disposition home or self-care (01) ==
LOC: ER 08:21
DX: J44.1 Chronic obstructive pulmonary disease with (acute) exacerbation (principal); I10 Essential (primary) hypertension; J44.9 Chronic obstructive pulmonary disease, unspecified; I25.2 Old myocardial infarction; F17.210 Nicotine dependence, cigarettes, uncomplicated; Z79.899 Other long term (current) drug therapy; Z79.82 Long term (current) use of aspirin
CPT/HCPCS: 71046; 99284-25

== ENCOUNTER 2023-06-01 12:13 | Emergency (ER) | payer OTHER ==
[~2023-06-01] VITALS: Ht 177.8 cm; Wt 68.0 kg
[~2023-06-01 12:13] MED LIST changes: +Zithromax250 MG PO
[2023-06-01 12:57] LABS: BASOPHILS ABSOLUTE AUTO 0.06 K/mm3 (0.00-0.23); BASOPHILS PERCENT AUTO 1 % (0-2); EOSINOPHILS ABSOLUTE AUTO 0.32 K/mm3 (0.00-0.68); EOSINOPHILS PERCENT AUTO 5 % (0-6); Hematocrit 43.6 % (37.0-53.0); Hemoglobin 13.9 g/dL (13.5-17.5); IMMATURE GRAN ABSOLUTE AUTO 0.02 K/mm3 (0.00-0.10); IMMATURE GRAN PERCENT AUTO 0 % (0-1); LYMPHOCYTES ABSOLUTE AUTO 0.72 K/mm3 (0.84-5.20); LYMPHOCYTES PERCENT AUTO 11 % (21-46); MONOCYTES ABSOLUTE AUTO 0.63 K/mm3 (0.16-1.47); MONOCYTES PERCENT AUTO 10 % (4-13); Mean Corpuscular HGB Conc 31.9 g/dL (31.5-36.5); Mean Corpuscular Volume 91 fL (80-100); Mean Platelet Volume 8.6 fL (9.1-12.4); NEUTROPHILS ABSOLUTE AUTO 4.81 K/mm3 (1.96-9.15); NEUTROPHILS PERCENT AUTO 73 % (41-73); Platelet Count 404 K/mm3 (150-400); RDW Coefficient Variation 15.1 % (11.7-14.2); RDW Standard Deviation 49.6 fL (35.1-46.3); Red Blood Cell Count 4.79 M/mm3 (4.30-5.90); White Blood Cell Count 6.56 K/mm3 (4.00-11.30)
[2023-06-01 13:06] VITALS: BP 125/67
[2023-06-01 13:18] LABS: Albumin, Blood 3.4 g/dL (3.4-5.0); Albumin/Globulin Ratio 1.1 (0.8-1.8); Bilirubin, Total 0.2 mg/dL (0.1-1.0); Bun/Creatinine Ratio 19.1 (12.0-20.0); Calcium, Blood 9.3 mg/dL (8.5-10.1); Creatinine, Blood 0.68 mg/dL (0.60-1.20); Globulin, Blood 3.1 g/dL (2.2-4.0); Potassium, Blood 3.8 mmol/L (3.5-5.5); Total Protein, Blood 6.5 g/dL (6.4-8.2)
== END 2023-06-01 13:53 | disposition home or self-care (01) ==
LOC: ER 12:13
PROVIDERS: Physician Assistant
DX: R06.02 Shortness of breath (principal); R94.31 Abnormal electrocardiogram [ECG] [EKG]; I10 Essential (primary) hypertension; I25.2 Old myocardial infarction; J44.9 Chronic obstructive pulmonary disease, unspecified; F17.210 Nicotine dependence, cigarettes, uncomplicated; Z99.81 Dependence on supplemental oxygen; Z53.29 Procedure and treatment not carried out because of patient's decision for other reasons; Z79.899 Other long term (current) drug therapy; Z79.82 Long term (current) use of aspirin
CPT/HCPCS: 80053; 84484; 85025; 93005; 93010; 99285-25

== ENCOUNTER 2023-06-02 11:27 | Emergency (ER) | payer OTHER ==
[~2023-06-02] VITALS: Ht 177.8 cm; Wt 68.0 kg
[2023-06-02 11:38] VITALS: BP 129/71
== END 2023-06-02 15:38 | disposition left against medical advice (07) ==
LOC: ER 11:27
DX: R94.31 Abnormal electrocardiogram [ECG] [EKG] (principal); Z53.21 Procedure and treatment not carried out due to patient leaving prior to being seen by health care provider
CPT/HCPCS: 99281

== ENCOUNTER 2023-06-05 05:03 | Emergency (ER) | payer OTHER ==
[~2023-06-05] VITALS: Ht 180.3 cm; Wt 72.6 kg
[2023-06-05 05:52] VITALS: BP 118/78
[2023-06-05 06:05] LABS: BASOPHILS PERCENT AUTO 2 % (0-2); EOSINOPHILS ABSOLUTE AUTO 0.57 K/mm3 (0.00-0.68); EOSINOPHILS PERCENT AUTO 9 % (0-6); Hematocrit 41.3 % (37.0-53.0); IMMATURE GRAN ABSOLUTE AUTO 0.02 K/mm3 (0.00-0.10); IMMATURE GRAN PERCENT AUTO 0 % (0-1); LYMPHOCYTES ABSOLUTE AUTO 0.88 K/mm3 (0.84-5.20); LYMPHOCYTES PERCENT AUTO 13 % (21-46); MONOCYTES ABSOLUTE AUTO 0.81 K/mm3 (0.16-1.47); MONOCYTES PERCENT AUTO 12 % (4-13); Mean Corpuscular HGB 28.8 pg (26.0-34.0); Mean Corpuscular HGB Conc 31.5 g/dL (31.5-36.5); Mean Corpuscular Volume 91 fL (80-100); Mean Platelet Volume 8.7 fL (9.1-12.4); NEUTROPHILS ABSOLUTE AUTO 4.23 K/mm3 (1.96-9.15); NEUTROPHILS PERCENT AUTO 64 % (41-73); Platelet Count 349 K/mm3 (150-400); RDW Coefficient Variation 15.2 % (11.7-14.2); RDW Standard Deviation 50.3 fL (35.1-46.3); Red Blood Cell Count 4.52 M/mm3 (4.30-5.90); White Blood Cell Count 6.61 K/mm3 (4.00-11.30)
[2023-06-05 06:25] LABS: Albumin, Blood 3.3 g/dL (3.4-5.0); Albumin/Globulin Ratio 1.1 (0.8-1.8); Bilirubin, Total 0.4 mg/dL (0.1-1.0); Bun/Creatinine Ratio 22.4 (12.0-20.0); Calcium, Blood 8.6 mg/dL (8.5-10.1); Creatinine, Blood 0.67 mg/dL (0.60-1.20); Potassium, Blood 4.8 mmol/L (3.5-5.5); Total Protein, Blood 6.3 g/dL (6.4-8.2)
[2023-06-05 08:06] LABS: Adenovirus Not Detected (NOT DETECT); Bordetella pertussis Not Detected (NOT DETECT); Chlamydophila pneumoniae Not Detected (NOT DETECT); Coronavirus 229E Not Detected (NOT DETECT); Coronavirus HKU1 Not Detected (NOT DETECT); Coronavirus NL63 Not Detected (NOT DETECT); Coronavirus OC43 Not Detected (NOT DETECT); Human Metapneumovirus Not Detected (NOT DETECT); Human Rhinovirus/Enterovirus Not Detected (NOT DETECT); Influenza A/2009-H1 Not Detected (NOT DETECT); Influenza A/H1 Not Detected (NOT DETECT); Influenza A/H3 Not Detected (NOT DETECT); Influenza B Not Detected (NOT DETECT); Mycoplasma pneumoniae Not Detected (NOT DETECT); Parainfluenza Virus 1 Not Detected (NOT DETECT); Parainfluenza Virus 2 Not Detected (NOT DETECT); Parainfluenza Virus 3 Not Detected (NOT DETECT); Parainfluenza Virus 4 Not Detected (NOT DETECT); Respiratory Syncytial Virus Not Detected (NOT DETECT); SARS-Cov-2 (COVID-19), BioFire Not Detected (NOT DETECT)
[2023-06-05] MEDS ORDERED: Zithromax250 MG PO (08:34)
[2023-06-05] MEDS ORDERED: Prednisone20 MG PO (08:34)
[2023-07-25] MEDS ORDERED: Prednisone20 MG PO (06:51)
== END 2023-06-05 07:56 | disposition left against medical advice (07) ==
LOC: ER 05:03
PROVIDERS: Emergency Medicine
DX: J44.1 Chronic obstructive pulmonary disease with (acute) exacerbation (principal); R94.31 Abnormal electrocardiogram [ECG] [EKG]; R07.9 Chest pain, unspecified; I10 Essential (primary) hypertension; I25.2 Old myocardial infarction; F17.210 Nicotine dependence, cigarettes, uncomplicated; Z85.118 Personal history of other malignant neoplasm of bronchus and lung; Z20.822 Contact with and (suspected) exposure to COVID-19; Z79.82 Long term (current) use of aspirin; Z79.51 Long term (current) use of inhaled steroids; Z79.899 Other long term (current) drug therapy
CPT/HCPCS: 0202U; 71046; 80053; 84484; 85025; 93005; 93010; 94640; 94664; 99285-25; A9270

== ENCOUNTER 2023-07-16 09:25 | Emergency (ER) | payer OTHER ==
[~2023-07-16] VITALS: Ht 175.3 cm; Wt 81.7 kg
[2023-07-16 10:27] VITALS: BP 114/71
[2023-07-16] MEDS ORDERED: ERYT1OIN RIGHTEYE (11:19)
== END 2023-07-16 11:22 | disposition home or self-care (01) ==
LOC: ER 09:25
DX: H57.11 Ocular pain, right eye (principal); H10.9 Unspecified conjunctivitis; Z79.899 Other long term (current) drug therapy; Z79.82 Long term (current) use of aspirin; Z79.52 Long term (current) use of systemic steroids; I25.10 Atherosclerotic heart disease of native coronary artery without angina pectoris; I10 Essential (primary) hypertension; J44.9 Chronic obstructive pulmonary disease, unspecified; F17.210 Nicotine dependence, cigarettes, uncomplicated
CPT/HCPCS: 99283; A9270

== ENCOUNTER 2023-07-30 00:07 | Emergency (ER) | payer OTHER ==
[~2023-07-30] VITALS: Ht 177.8 cm; Wt 72.6 kg
[~2023-07-30 00:07] MED LIST changes: +ERYT1OIN RIGHTEYE
[2023-07-30 01:30] LABS: BASOPHILS ABSOLUTE AUTO 0.03 K/mm3 (0.00-0.23); BASOPHILS PERCENT AUTO 0 % (0-2); EOSINOPHILS ABSOLUTE AUTO 0.05 K/mm3 (0.00-0.68); EOSINOPHILS PERCENT AUTO 0 % (0-6); Hematocrit 40.9 % (37.0-53.0); Hemoglobin 13.3 g/dL (13.5-17.5); IMMATURE GRAN ABSOLUTE AUTO 0.07 K/mm3 (0.00-0.10); IMMATURE GRAN PERCENT AUTO 1 % (0-1); LYMPHOCYTES ABSOLUTE AUTO 1.19 K/mm3 (0.84-5.20); LYMPHOCYTES PERCENT AUTO 10 % (21-46); MONOCYTES ABSOLUTE AUTO 1.38 K/mm3 (0.16-1.47); MONOCYTES PERCENT AUTO 11 % (4-13); Mean Corpuscular HGB Conc 32.5 g/dL (31.5-36.5); Mean Corpuscular Volume 83 fL (80-100); Mean Platelet Volume 8.3 fL (9.1-12.4); NEUTROPHILS ABSOLUTE AUTO 9.73 K/mm3 (1.96-9.15); NEUTROPHILS PERCENT AUTO 78 % (41-73); Platelet Count 418 K/mm3 (150-400); RDW Coefficient Variation 15.1 % (11.7-14.2); RDW Standard Deviation 46.2 fL (35.1-46.3); Red Blood Cell Count 4.92 M/mm3 (4.30-5.90); White Blood Cell Count 12.45 K/mm3 (4.00-11.30)
[2023-07-30 01:42] LABS: Albumin, Blood 3.4 g/dL (3.4-5.0); Albumin/Globulin Ratio 1.1 (0.8-1.8); Bilirubin, Total 0.2 mg/dL (0.1-1.0); Bun/Creatinine Ratio 30.7 (12.0-20.0); Calcium, Blood 8.6 mg/dL (8.5-10.1); Creatinine, Blood 0.68 mg/dL (0.60-1.20); Globulin, Blood 3.2 g/dL (2.2-4.0); Magnesium, Blood 2.2 mg/dL (1.6-2.4); Potassium, Blood 3.3 mmol/L (3.5-5.5); Total Protein, Blood 6.6 g/dL (6.4-8.2)
[2023-07-30 03:30] LABS: Source, Urine Straight Cath
[2023-07-30 03:32] LABS: Bilirubin, Urine Neg (Neg); Blood, Urine Neg (Neg); Glucose Qualitative, Urine Neg (Neg); Ketones, Urine Neg (Neg); Leukocyte Esterase, Urine 1+ (Neg); Nitrite, Urine Neg (Neg); Protein, Urine 1+ (Neg); Urobilinogen, Urine NORM (Normal)
[2023-07-30 03:40] LABS: Appearance, Urine Clear (Clear); Color, Urine Yellow (P-Yellow)
[2023-07-30 03:41] LABS: Bacteria Few /hpf; Red Blood Cells, Urine 0-2 /hpf (0-2); Squamous Epithelial Cells Mod /hpf (Few); White Blood Cells, Urine 0-2 /hpf (0-5)
[2023-07-30] MEDS ORDERED: CEPH500 PO (03:55)
[2023-07-30 04:11] VITALS: BP 121/70
== END 2023-07-30 04:20 | disposition home or self-care (01) ==
LOC: ER 00:07
PROVIDERS: Emergency Medicine
DX: S40.012A Contusion of left shoulder, initial encounter (principal); S80.212A Abrasion, left knee, initial encounter; N39.0 Urinary tract infection, site not specified; F10.10 Alcohol abuse, uncomplicated; E87.6 Hypokalemia; W18.30XA Fall on same level, unspecified, initial encounter; Z79.899 Other long term (current) drug therapy; Z79.82 Long term (current) use of aspirin; Z79.52 Long term (current) use of systemic steroids; I25.2 Old myocardial infarction; I10 Essential (primary) hypertension; J44.9 Chronic obstructive pulmonary disease, unspecified
CPT/HCPCS: 70450; 72125; 73030; 80053; 81001; 83735; 85025; 87086; 93005; 93010; 94640; 94664; 99284-25; A9270; L0160

== ENCOUNTER 2023-09-03 08:46 | Emergency (ER) | payer OTHER ==
[~2023-09-03] VITALS: Ht 177.8 cm; Wt 72.6 kg
[2023-09-03 09:53] VITALS: BP 138/81
[2023-09-03] MEDS ORDERED: PRED20 PO (12:57)
[2023-09-04] MEDS ORDERED: PRED20 PO (08:22)
== END 2023-09-03 12:44 | disposition home or self-care (01) ==
LOC: ER 08:46
DX: J44.1 Chronic obstructive pulmonary disease with (acute) exacerbation (principal); I10 Essential (primary) hypertension; F17.210 Nicotine dependence, cigarettes, uncomplicated; Z79.51 Long term (current) use of inhaled steroids; Z79.82 Long term (current) use of aspirin; Z79.899 Other long term (current) drug therapy
CPT/HCPCS: 71046; 93005; 93010; 94640; 94664; 99283-25

== ENCOUNTER 2023-09-04 07:55 | Emergency (ER) | payer OTHER ==
[~2023-09-04] VITALS: Ht 177.8 cm; Wt 72.6 kg
[2023-09-04 08:06] VITALS: BP 151/82
[2023-09-04] MEDS ORDERED: PRED20 PO (08:22)
== END 2023-09-04 08:30 | disposition home or self-care (01) ==
LOC: ER 07:55
DX: J44.1 Chronic obstructive pulmonary disease with (acute) exacerbation (principal); I10 Essential (primary) hypertension; I25.2 Old myocardial infarction; F17.210 Nicotine dependence, cigarettes, uncomplicated; Z95.5 Presence of coronary angioplasty implant and graft; Z79.82 Long term (current) use of aspirin; Z79.899 Other long term (current) drug therapy
CPT/HCPCS: 99284

== ENCOUNTER 2023-09-11 07:23 | Emergency (ER) | payer OTHER ==
[~2023-09-11] VITALS: Ht 177.8 cm; Wt 72.6 kg
[2023-09-11 07:30] VITALS: BP 153/83
[2023-09-11] MEDS ORDERED: MIRALAX17 GM PO (07:57)
[2023-09-11] MEDS ORDERED: BISA10S PR (07:57)
== END 2023-09-11 08:09 | disposition home or self-care (01) ==
LOC: ER 07:23
DX: K59.00 Constipation, unspecified (principal); Z79.899 Other long term (current) drug therapy; Z79.82 Long term (current) use of aspirin; I25.2 Old myocardial infarction; I10 Essential (primary) hypertension; J44.9 Chronic obstructive pulmonary disease, unspecified; F17.210 Nicotine dependence, cigarettes, uncomplicated
CPT/HCPCS: 74019; 99283-25

== ENCOUNTER 2023-09-17 18:44 | Emergency (ER) | payer SELFPAY ==
[~2023-09-17] VITALS: Ht 177.8 cm; Wt 77.1 kg
[~2023-09-17 18:44] MED LIST changes: +BISA10S PR
[2023-09-17 19:24] VITALS: BP 138/77
[2023-09-17] MEDS ORDERED: DOC250 PO (20:27)
[2023-09-17] MEDS ORDERED: MAGCIT300 PO (20:27)
== END 2023-09-17 20:37 | disposition home or self-care (01) ==
LOC: ER 18:44
DX: K59.00 Constipation, unspecified (principal); Z79.82 Long term (current) use of aspirin; Z79.899 Other long term (current) drug therapy; I10 Essential (primary) hypertension; J44.9 Chronic obstructive pulmonary disease, unspecified; I25.2 Old myocardial infarction; F17.210 Nicotine dependence, cigarettes, uncomplicated
CPT/HCPCS: 74018; 99283-25; A9270

== ENCOUNTER 2023-11-12 01:36 | Emergency (ER) | payer OTHER ==
[~2023-11-12] VITALS: Ht 177.8 cm; Wt 74.8 kg
[~2023-11-12 01:36] MED LIST changes: +DOC250 PO
[2023-11-12 01:58] LABS: BASOPHILS ABSOLUTE AUTO 0.03 K/mm3 (0.00-0.23); BASOPHILS PERCENT AUTO 0 % (0-2); EOSINOPHILS ABSOLUTE AUTO 0.01 K/mm3 (0.00-0.68); EOSINOPHILS PERCENT AUTO 0 % (0-6); Hematocrit 44.2 % (37.0-53.0); Hemoglobin 13.6 g/dL (13.5-17.5); IMMATURE GRAN ABSOLUTE AUTO 0.37 K/mm3 (0.00-0.10); IMMATURE GRAN PERCENT AUTO 4 % (0-1); LYMPHOCYTES ABSOLUTE AUTO 1.15 K/mm3 (0.84-5.20); LYMPHOCYTES PERCENT AUTO 13 % (21-46); MONOCYTES ABSOLUTE AUTO 0.94 K/mm3 (0.16-1.47); MONOCYTES PERCENT AUTO 11 % (4-13); Mean Corpuscular HGB 26.3 pg (26.0-34.0); Mean Corpuscular HGB Conc 30.8 g/dL (31.5-36.5); Mean Corpuscular Volume 86 fL (80-100); Mean Platelet Volume 8.2 fL (9.1-12.4); NEUTROPHILS PERCENT AUTO 72 % (41-73); Platelet Count 487 K/mm3 (150-400); RDW Coefficient Variation 20.8 % (11.7-14.2); RDW Standard Deviation 64.2 fL (35.1-46.3); Red Blood Cell Count 5.17 M/mm3 (4.30-5.90)
[2023-11-12] MEDS ORDERED: Ipratropium/Albuterol SulF 2.5-0.5MG/3 ML Amp INH ONE (02:00)
[2023-11-12] MEDS ORDERED: Aspirin 81 MG Chew PO ONE (02:00)
[2023-11-12 02:16] LABS: Albumin, Blood 3.5 g/dL (3.4-5.0); Albumin/Globulin Ratio 1.1 (0.8-1.8); Bilirubin, Total 0.2 mg/dL (0.1-1.0); Bun/Creatinine Ratio 39.4 (12.0-20.0); Calcium, Blood 9.2 mg/dL (8.5-10.1); Creatinine, Blood 0.56 mg/dL (0.60-1.20); Globulin, Blood 3.3 g/dL (2.2-4.0); Potassium, Blood 4.6 mmol/L (3.5-5.5); Total Protein, Blood 6.8 g/dL (6.4-8.2)
[2023-11-12 02:24] LABS: D-Dimer, Quantitative <0.19 mg/L FEU (0.00-0.52); International Normalized Ratio 0.93; Prothrombin Time Results 9.8 Sec (9.7-11.5)
[2023-11-12 02:30] VITALS: BP 148/95
== END 2023-11-12 02:35 | disposition home or self-care (01) ==
LOC: ER 01:36
PROVIDERS: Emergency Medicine
DX: R07.89 Other chest pain (principal); R06.02 Shortness of breath; Z91.199 Patient's noncompliance with other medical treatment and regimen due to unspecified reason; Z79.899 Other long term (current) drug therapy; Z79.82 Long term (current) use of aspirin; I10 Essential (primary) hypertension; I25.2 Old myocardial infarction; J44.9 Chronic obstructive pulmonary disease, unspecified; F17.210 Nicotine dependence, cigarettes, uncomplicated
CPT/HCPCS: 71045; 80053; 84484; 85025; 85379; 85610; 85730; 93005; 93010; 94640; 94664; A9270

== ENCOUNTER 2024-02-12 10:28 | Emergency (ER) | payer OTHER ==
[~2024-02-12] VITALS: Ht 177.8 cm; Wt 90.7 kg
[~2024-02-12 10:28] MED LIST changes: +DOCUSATE SODIU250 MG PO; +ERYT.5TO RIGHTEYE; +[UNRECOGNIZED DRUG - CODE] PO
[2024-02-12 11:00] VITALS: BP 134/78
[2024-02-12] MEDS ORDERED: MethylPREDNISolone Sod Succ 125 MG Vial IV ONE (11:10)
== END 2024-02-12 11:26 | disposition home or self-care (01) ==
LOC: ER 10:28
DX: J44.1 Chronic obstructive pulmonary disease with (acute) exacerbation (principal); Z91.148 Patient's other noncompliance with medication regimen for other reason; Z79.899 Other long term (current) drug therapy; Z79.52 Long term (current) use of systemic steroids; I10 Essential (primary) hypertension; I25.2 Old myocardial infarction; F17.210 Nicotine dependence, cigarettes, uncomplicated
CPT/HCPCS: 93005; 93010; 96374; 99284-25; J2919

== ENCOUNTER 2024-03-02 09:39 | Emergency (ER) | payer OTHER ==
[~2024-03-02] VITALS: Ht 177.8 cm; Wt 81.7 kg
[2024-03-02] MEDS ORDERED: Ipratropium/Albuterol SulF 2.5-0.5MG/3 ML Amp INH ONE (09:55)
[2024-03-02] MEDS ORDERED: Dexamethasone Sod Phos 10 MG/ML 1ML VIAL PO ONE (09:55)
[2024-03-02] MEDS ORDERED: ATROVENT HFA12.9 GM INH (11:09)
[2024-03-02 11:10] VITALS: BP 141/90
== END 2024-03-02 11:11 ==
LOC: ER 09:39
DX: J44.1 Chronic obstructive pulmonary disease with (acute) exacerbation (principal); I25.2 Old myocardial infarction; I10 Essential (primary) hypertension; F17.210 Nicotine dependence, cigarettes, uncomplicated; Z79.52 Long term (current) use of systemic steroids
CPT/HCPCS: 94640; 99284-25; J1100

== ENCOUNTER 2024-03-09 14:12 | Emergency (ER) | payer OTHER ==
[~2024-03-09] VITALS: Ht 177.8 cm; Wt 81.7 kg
[~2024-03-09 14:12] MED LIST changes: +ATROVENT HFA12.9 GM INH
[2024-03-09 14:21] VITALS: BP 130/86
== END 2024-03-09 14:25 | disposition home or self-care (01) ==
LOC: ER 14:12
DX: J44.1 Chronic obstructive pulmonary disease with (acute) exacerbation (principal); Z79.899 Other long term (current) drug therapy; Z79.52 Long term (current) use of systemic steroids; I25.2 Old myocardial infarction; I10 Essential (primary) hypertension; F17.210 Nicotine dependence, cigarettes, uncomplicated
CPT/HCPCS: 99283

== ENCOUNTER 2024-03-12 11:25 | Emergency (ER) | payer OTHER ==
[~2024-03-12] VITALS: Ht 172.7 cm; Wt 72.6 kg
[2024-03-12 11:40] VITALS: BP 114/75
[2024-03-12] MEDS ORDERED: Ipratropium/Albuterol SulF 2.5-0.5MG/3 ML Amp INH ONE (12:00)
[2024-03-12] MEDS ORDERED: PredniSONE 20 MG Tab PO ONE (12:50)
[2024-03-12] MEDS ORDERED: IPRAT-ALBUT 0.5-3 ML INH (12:55)
[2024-03-12] MEDS ORDERED: PRED20 PO (12:55)
== END 2024-03-12 13:02 | disposition home or self-care (01) ==
LOC: ER 11:25
DX: J44.1 Chronic obstructive pulmonary disease with (acute) exacerbation (principal); F17.210 Nicotine dependence, cigarettes, uncomplicated; Z79.52 Long term (current) use of systemic steroids; Z79.899 Other long term (current) drug therapy
CPT/HCPCS: 94640; 94664; 99284-25; J7512

== ENCOUNTER 2024-03-19 09:56 | Emergency (ER) | payer OTHER ==
[~2024-03-19] VITALS: Ht 172.7 cm; Wt 72.6 kg
[2024-03-19 10:52] VITALS: BP 128/75
[2024-03-19] MEDS ORDERED: IPRAT-ALBUT 0.5-3 ML INH (11:37)
== END 2024-03-19 11:46 | disposition home or self-care (01) ==
LOC: ER 09:56
DX: Z76.0 Encounter for issue of repeat prescription (principal); I10 Essential (primary) hypertension; J44.9 Chronic obstructive pulmonary disease, unspecified; I25.2 Old myocardial infarction; F17.210 Nicotine dependence, cigarettes, uncomplicated; Z79.52 Long term (current) use of systemic steroids; Z95.5 Presence of coronary angioplasty implant and graft; Z79.899 Other long term (current) drug therapy
CPT/HCPCS: 99281

== ENCOUNTER 2024-03-22 11:22 | Emergency (ER) | payer OTHER ==
[~2024-03-22] VITALS: Ht 177.8 cm; Wt 81.7 kg
[2024-03-22 11:39] VITALS: BP 133/85
[2024-03-22 14:51] LABS: Influenza A, PCR NEGATIVE (NEGATIVE); Influenza B, PCR NEGATIVE (NEGATIVE); Resp Syncytial Virus, PCR NEGATIVE (NEGATIVE); SARS-Cov-2 (COVID-19) PCR, MMC NEGATIVE (NEGATIVE)
== END 2024-03-22 14:23 | disposition home or self-care (01) ==
LOC: ER 11:22
PROVIDERS: Physician Assistant
DX: J06.9 Acute upper respiratory infection, unspecified (principal); I25.2 Old myocardial infarction; J44.9 Chronic obstructive pulmonary disease, unspecified; F17.210 Nicotine dependence, cigarettes, uncomplicated; Z79.52 Long term (current) use of systemic steroids; Z79.899 Other long term (current) drug therapy; Z95.5 Presence of coronary angioplasty implant and graft; Z85.118 Personal history of other malignant neoplasm of bronchus and lung
CPT/HCPCS: 0241U; 71046

== ENCOUNTER 2024-03-29 12:20 | Emergency (ER) | payer OTHER ==
[~2024-03-29] VITALS: Ht 177.8 cm; Wt 81.7 kg
[2024-03-29 12:24] VITALS: BP 137/78
[2024-03-29] MEDS ORDERED: Magnesium Citrate 300 ML BTL PO ONE (12:30)
[2024-03-29] MEDS ORDERED: MAGCIT300 PO (12:49)
== END 2024-03-29 16:08 | disposition home or self-care (01) ==
LOC: ER 12:20
DX: K59.00 Constipation, unspecified (principal); I25.2 Old myocardial infarction; I10 Essential (primary) hypertension; J44.9 Chronic obstructive pulmonary disease, unspecified; F17.210 Nicotine dependence, cigarettes, uncomplicated; Z79.52 Long term (current) use of systemic steroids; Z79.899 Other long term (current) drug therapy
CPT/HCPCS: 99282

== ENCOUNTER 2024-04-01 07:02 | Emergency (ER) | payer OTHER ==
[~2024-04-01] VITALS: Ht 177.8 cm; Wt 83.9 kg
[2024-04-01] MEDS ORDERED: Zithromax Tri-500 MG PO (07:42)
[2024-04-01] MEDS ORDERED: COLACE100 MG (07:43)
[2024-04-01] MEDS ORDERED: BENZ100A PO (07:59)
[2024-04-01 08:10] VITALS: BP 109/78
== END 2024-04-01 08:13 | disposition home or self-care (01) ==
LOC: ER 07:02
DX: R05.9 Cough, unspecified (principal); R09.81 Nasal congestion; I25.2 Old myocardial infarction; I10 Essential (primary) hypertension; F17.210 Nicotine dependence, cigarettes, uncomplicated; Z87.09 Personal history of other diseases of the respiratory system; Z79.52 Long term (current) use of systemic steroids; Z79.899 Other long term (current) drug therapy
CPT/HCPCS: 99283-25

== ENCOUNTER 2024-04-01 19:10 | Emergency (ER) | payer OTHER ==
[~2024-04-01] VITALS: Ht 177.8 cm; Wt 78.5 kg
[~2024-04-01 19:10] MED LIST changes: +BENZ100A PO; +COLACE100 MG; +Zithromax Tri-500 MG PO
[2024-04-01 19:19] VITALS: BP 133/85
[2024-04-01] MEDS ORDERED: Albuterol 2.5 MG/3 ML VIAL INH SCH (19:45)
== END 2024-04-01 20:08 | disposition home or self-care (01) ==
LOC: ER 19:10
DX: J44.9 Chronic obstructive pulmonary disease, unspecified (principal); Z76.0 Encounter for issue of repeat prescription; F17.210 Nicotine dependence, cigarettes, uncomplicated
CPT/HCPCS: 94644; 94664; 99281-25

== ENCOUNTER → 2024-04-04 | Outpatient (CLI) | payer OTHER ==
[2024-04-04 10:59] LABS: BASOPHILS ABSOLUTE AUTO 0.05 K/mm3 (0.00-0.23); BASOPHILS PERCENT AUTO 1 % (0-2); EOSINOPHILS ABSOLUTE AUTO 0.17 K/mm3 (0.00-0.68); EOSINOPHILS PERCENT AUTO 4 % (0-6); Hemoglobin 14.3 g/dL (13.5-17.5); IMMATURE GRAN ABSOLUTE AUTO 0.03 K/mm3 (0.00-0.10); IMMATURE GRAN PERCENT AUTO 1 % (0-1); LYMPHOCYTES ABSOLUTE AUTO 0.86 K/mm3 (0.84-5.20); LYMPHOCYTES PERCENT AUTO 18 % (21-46); MONOCYTES ABSOLUTE AUTO 0.68 K/mm3 (0.16-1.47); MONOCYTES PERCENT AUTO 14 % (4-13); Mean Corpuscular HGB 28.1 pg (26.0-34.0); Mean Corpuscular HGB Conc 31.1 g/dL (31.5-36.5); Mean Corpuscular Volume 90 fL (80-100); Mean Platelet Volume 8.6 fL (9.1-12.4); NEUTROPHILS ABSOLUTE AUTO 2.94 K/mm3 (1.96-9.15); NEUTROPHILS PERCENT AUTO 62 % (41-73); Platelet Count 493 K/mm3 (150-400); RDW Coefficient Variation 16.7 % (11.7-14.2); RDW Standard Deviation 56.3 fL (35.1-46.3); Red Blood Cell Count 5.09 M/mm3 (4.30-5.90); White Blood Cell Count 4.73 K/mm3 (4.00-11.30)
[2024-04-04 11:08] LABS: Albumin, Blood 3.2 g/dL (3.4-5.0); Albumin/Globulin Ratio 0.9 (0.8-1.8); Bilirubin, Total 0.3 mg/dL (0.1-1.0); Bun/Creatinine Ratio 10.7 (12.0-20.0); Creatinine, Blood 0.84 mg/dL (0.60-1.20); Globulin, Blood 3.6 g/dL (2.2-4.0); Potassium, Blood 4.6 mmol/L (3.5-5.5); Total Protein, Blood 6.8 g/dL (6.4-8.2)
== END ==
LOC: LAB SHORT 10:53 → LAB 10:53
PROVIDERS: Family Medicine
DX: R07.9 Chest pain, unspecified (principal); R06.02 Shortness of breath
CPT/HCPCS: 80053; 84484; 85025; 85379

== ENCOUNTER 2024-04-06 04:46 | Emergency (ER) | payer OTHER ==
[~2024-04-06] VITALS: Ht 177.8 cm; Wt 83.9 kg
[2024-04-06 05:01] VITALS: BP 119/73
[2024-04-06] MEDS ORDERED: Azithromycin 250 MG Tab PO ONE (05:05)
[2024-04-06] MEDS ORDERED: PredniSONE 20 MG Tab PO ONE (05:05)
[2024-04-06] MEDS ORDERED: Albuterol 2.5 MG/3 ML VIAL INH SCH (05:05)
[2024-04-06] MEDS ORDERED: ALBU90OI INH (05:48)
[2024-04-06] MEDS ORDERED: Prednisone20 MG PO (05:48)
[2024-04-06 05:58] LABS: Influenza A, PCR NEGATIVE (NEGATIVE); Influenza B, PCR NEGATIVE (NEGATIVE); Resp Syncytial Virus, PCR NEGATIVE (NEGATIVE); SARS-Cov-2 (COVID-19) PCR, MMC NEGATIVE (NEGATIVE)
== END 2024-04-06 05:53 | disposition home or self-care (01) ==
LOC: ER 04:46
PROVIDERS: Emergency Medicine
DX: J44.1 Chronic obstructive pulmonary disease with (acute) exacerbation (principal); I25.2 Old myocardial infarction; I10 Essential (primary) hypertension; F17.210 Nicotine dependence, cigarettes, uncomplicated; Z79.899 Other long term (current) drug therapy
CPT/HCPCS: 0241U; 71045; 93005; 93010; 94640; 94664; 99285-25; A9270; J7512

== ENCOUNTER 2024-04-29 01:09 | Emergency (ER) | payer SELFPAY ==
[~2024-04-29] VITALS: Ht 172.7 cm; Wt 79.4 kg
[~2024-04-29 01:09] MED LIST changes: +MIRALAX11914 PO; +OCUFLOX510 RIGHTEYE
[2024-04-29 01:26] VITALS: BP 147/82
[2024-04-29] MEDS ORDERED: Lactulose 200 GM/300 ML Enema 300ML BTL PR ONE ×2 (02:40→03:15)
[2024-04-29] MEDS ORDERED: Magnesium Citrate 300 ML BTL PO ONE (03:30)
== END 2024-04-29 03:45 | disposition home or self-care (01) ==
LOC: ER 01:09
DX: K59.00 Constipation, unspecified (principal); I25.2 Old myocardial infarction; I10 Essential (primary) hypertension; J44.9 Chronic obstructive pulmonary disease, unspecified; F17.210 Nicotine dependence, cigarettes, uncomplicated; Z95.5 Presence of coronary angioplasty implant and graft; Z79.899 Other long term (current) drug therapy
CPT/HCPCS: 99283; A9270

== ENCOUNTER 2024-05-11 13:59 | Emergency (ER) | payer SELFPAY ==
[~2024-05-11] VITALS: Ht 177.8 cm; Wt 83.9 kg
[2024-05-11 14:03] VITALS: BP 135/72
== END 2024-05-11 14:10 | disposition home or self-care (01) ==
LOC: ER 13:59
DX: R06.02 Shortness of breath (principal); J44.9 Chronic obstructive pulmonary disease, unspecified; F17.210 Nicotine dependence, cigarettes, uncomplicated
CPT/HCPCS: 99283

== ENCOUNTER 2024-05-28 22:07 | Emergency (ER) | payer SELFPAY ==
[~2024-05-28] VITALS: Ht 177.8 cm; Wt 90.7 kg
[2024-05-29 00:46] VITALS: BP 128/79
[2024-05-29] MEDS ORDERED: PRED20 PO (01:37)
[2024-05-29] MEDS ORDERED: AMOCLA875 PO ×2 (01:37→10:41)
[2024-05-29] MEDS ORDERED: ALBU90OI INH (10:41)
== END 2024-05-29 01:37 | disposition home or self-care (01) ==
LOC: ER 22:07
DX: J44.0 Chronic obstructive pulmonary disease with (acute) lower respiratory infection (principal); J20.9 Acute bronchitis, unspecified; Z79.899 Other long term (current) drug therapy; I10 Essential (primary) hypertension; I25.2 Old myocardial infarction; F17.210 Nicotine dependence, cigarettes, uncomplicated
CPT/HCPCS: 71046; 93005; 93010; 99285-25

== ENCOUNTER 2024-06-11 10:31 | Emergency (ER) | payer SELFPAY ==
[~2024-06-11] VITALS: Ht 177.8 cm; Wt 90.7 kg
[2024-06-11 10:57] LABS: BASOPHILS PERCENT AUTO 1 % (0-2); EOSINOPHILS ABSOLUTE AUTO 0.37 K/mm3 (0.00-0.68); EOSINOPHILS PERCENT AUTO 5 % (0-6); Hematocrit 40.5 % (37.0-53.0); Hemoglobin 12.8 g/dL (13.5-17.5); IMMATURE GRAN ABSOLUTE AUTO 0.02 K/mm3 (0.00-0.10); IMMATURE GRAN PERCENT AUTO 0 % (0-1); LYMPHOCYTES ABSOLUTE AUTO 0.88 K/mm3 (0.84-5.20); LYMPHOCYTES PERCENT AUTO 12 % (21-46); MONOCYTES ABSOLUTE AUTO 0.78 K/mm3 (0.16-1.47); MONOCYTES PERCENT AUTO 11 % (4-13); Mean Corpuscular HGB 29.1 pg (26.0-34.0); Mean Corpuscular HGB Conc 31.6 g/dL (31.5-36.5); Mean Corpuscular Volume 92 fL (80-100); NEUTROPHILS ABSOLUTE AUTO 4.92 K/mm3 (1.96-9.15); NEUTROPHILS PERCENT AUTO 70 % (41-73); Platelet Count 324 K/mm3 (150-400); RDW Coefficient Variation 16.2 % (11.7-14.2); RDW Standard Deviation 55.2 fL (35.1-46.3); White Blood Cell Count 7.07 K/mm3 (4.00-11.30)
[2024-06-11] MEDS ORDERED: FURO20 PO (10:59)
[2024-06-11] MEDS ORDERED: FAMO10 PO (10:59)
[2024-06-11] MEDS ORDERED: AMIT25 PO (11:00)
[2024-06-11] MEDS ORDERED: IPRAT-ALBUT 0.5-3 ML INH (11:01)
[2024-06-11 11:14] LABS: Albumin, Blood 3.3 g/dL (3.4-5.0); Bilirubin, Total 0.3 mg/dL (0.1-1.0); Bun/Creatinine Ratio 13.1 (12.0-20.0); Calcium, Blood 8.8 mg/dL (8.5-10.1); Creatinine, Blood 0.61 mg/dL (0.60-1.20); Globulin, Blood 3.2 g/dL (2.2-4.0); Potassium, Blood 3.6 mmol/L (3.5-5.5); Total Protein, Blood 6.5 g/dL (6.4-8.2)
[2024-06-11] MEDS ORDERED: Ipratropium/Albuterol SulF 2.5-0.5MG/3 ML Amp INH ONE (11:50)
[2024-06-11] MEDS ORDERED: Albuterol 2.5 MG/3 ML VIAL INH ONE (13:05)
[2024-06-11 13:14] LABS: Influenza A, PCR NEGATIVE (NEGATIVE); Influenza B, PCR NEGATIVE (NEGATIVE); Resp Syncytial Virus, PCR NEGATIVE (NEGATIVE); SARS-Cov-2 (COVID-19) PCR, MMC NEGATIVE (NEGATIVE)
[2024-06-11] MEDS ORDERED: PredniSONE 20 MG Tab PO ONE (13:55)
[2024-06-11 13:59] VITALS: BP 135/85
== END 2024-06-11 14:01 | disposition home or self-care (01) ==
LOC: ER 10:31
PROVIDERS: Emergency Medicine; Physician Assistant
DX: J44.1 Chronic obstructive pulmonary disease with (acute) exacerbation (principal); I50.9 Heart failure, unspecified; Z91.148 Patient's other noncompliance with medication regimen for other reason
CPT/HCPCS: 0241U; 71046; 80053; 83880; 84484; 85025; 93005; 93010; 94640; 94664; 99285-25; J7512

== ENCOUNTER 2024-06-15 06:46 | Emergency (ER) | payer SELFPAY ==
[~2024-06-15] VITALS: Ht 177.8 cm; Wt 90.7 kg
[~2024-06-15 06:46] MED LIST changes: +AMIT25 PO; +FAMO10 PO; +FURO20 PO
[2024-06-15] MEDS ORDERED: Ipratropium/Albuterol SulF 2.5-0.5MG/3 ML Amp INH ONE (07:20)
[2024-06-15] MEDS ORDERED: Dexamethasone Sod Phos 10 MG/ML 1ML VIAL PO ONE (07:20)
[2024-06-15] MEDS ORDERED: GuaiFENesin 600 MG TabCR PO ONE (07:20)
[2024-06-15] MEDS ORDERED: Q-Tussin100 MG/5 M PO (08:23)
[2024-06-15 08:29] VITALS: BP 136/71
== END 2024-06-15 08:30 | disposition home or self-care (01) ==
LOC: ER 06:46
DX: J44.1 Chronic obstructive pulmonary disease with (acute) exacerbation (principal); I10 Essential (primary) hypertension; F17.210 Nicotine dependence, cigarettes, uncomplicated; Z79.02 Long term (current) use of antithrombotics/antiplatelets; Z79.899 Other long term (current) drug therapy
CPT/HCPCS: 71045; 94640; 94664; 99285-25; A9270; J1100

== ENCOUNTER 2024-06-23 18:03 | Emergency (ER) | payer SELFPAY ==
[~2024-06-23] VITALS: Ht 177.8 cm; Wt 95.2 kg
[~2024-06-23 18:03] MED LIST changes: +Q-Tussin100 MG/5 M PO
[2024-06-23 18:18] VITALS: BP 126/77
== END 2024-06-23 18:32 | disposition home or self-care (01) ==
LOC: ER 18:03
DX: K59.00 Constipation, unspecified (principal); I25.2 Old myocardial infarction; I10 Essential (primary) hypertension; J44.9 Chronic obstructive pulmonary disease, unspecified; F17.210 Nicotine dependence, cigarettes, uncomplicated; Z85.118 Personal history of other malignant neoplasm of bronchus and lung; Z95.5 Presence of coronary angioplasty implant and graft; Z79.01 Long term (current) use of anticoagulants; Z79.899 Other long term (current) drug therapy; Z79.52 Long term (current) use of systemic steroids
CPT/HCPCS: 99282

== ENCOUNTER 2024-06-25 18:26 | Emergency (ER) | payer SELFPAY ==
[~2024-06-25] VITALS: Ht 177.8 cm; Wt 90.7 kg
[2024-06-25] MEDS ORDERED: Ipratropium Bromide INH 0.02% 0.5 mg/2.5ML Vial INH SCH (20:15)
[2024-06-25] MEDS ORDERED: Albuterol 2.5 MG/3 ML VIAL INH SCH (20:15)
[2024-06-25 20:37] LABS: BASOPHILS ABSOLUTE AUTO 0.01 K/mm3 (0.00-0.23); BASOPHILS PERCENT AUTO 0 % (0-2); EOSINOPHILS ABSOLUTE AUTO 0.01 K/mm3 (0.00-0.68); EOSINOPHILS PERCENT AUTO 0 % (0-6); Hematocrit 39.4 % (37.0-53.0); Hemoglobin 12.5 g/dL (13.5-17.5); IMMATURE GRAN ABSOLUTE AUTO 0.05 K/mm3 (0.00-0.10); IMMATURE GRAN PERCENT AUTO 1 % (0-1); LYMPHOCYTES ABSOLUTE AUTO 0.87 K/mm3 (0.84-5.20); LYMPHOCYTES PERCENT AUTO 12 % (21-46); MONOCYTES ABSOLUTE AUTO 0.97 K/mm3 (0.16-1.47); MONOCYTES PERCENT AUTO 13 % (4-13); Mean Corpuscular HGB 28.9 pg (26.0-34.0); Mean Corpuscular HGB Conc 31.7 g/dL (31.5-36.5); Mean Corpuscular Volume 91 fL (80-100); NEUTROPHILS ABSOLUTE AUTO 5.56 K/mm3 (1.96-9.15); NEUTROPHILS PERCENT AUTO 75 % (41-73); RDW Coefficient Variation 16.7 % (11.7-14.2); RDW Standard Deviation 56.5 fL (35.1-46.3); Red Blood Cell Count 4.33 M/mm3 (4.30-5.90); White Blood Cell Count 7.47 K/mm3 (4.00-11.30)
[2024-06-25 20:39] LABS: Mean Platelet Volume 9.4 fL (9.1-12.4); Platelet Count 330 K/mm3 (150-400)
[2024-06-25 20:57] LABS: Albumin, Blood 3.4 g/dL (3.4-5.0); Bilirubin, Total 0.4 mg/dL (0.1-1.0); Bun/Creatinine Ratio 30.2 (12.0-20.0); Creatinine, Blood 0.56 mg/dL (0.60-1.20); Globulin, Blood 3.3 g/dL (2.2-4.0); Potassium, Blood 4.5 mmol/L (3.5-5.5); Total Protein, Blood 6.7 g/dL (6.4-8.2)
[2024-06-25 23:25] VITALS: BP 125/77
== END 2024-06-25 23:42 | disposition left against medical advice (07) ==
LOC: ER 18:26
PROVIDERS: Student in an Organized Health Care Education/Training Program
DX: K59.00 Constipation, unspecified (principal); J44.9 Chronic obstructive pulmonary disease, unspecified; F17.210 Nicotine dependence, cigarettes, uncomplicated; I10 Essential (primary) hypertension; I25.2 Old myocardial infarction; Z79.52 Long term (current) use of systemic steroids; Z79.899 Other long term (current) drug therapy; Z95.5 Presence of coronary angioplasty implant and graft; Z53.29 Procedure and treatment not carried out because of patient's decision for other reasons
CPT/HCPCS: 71046; 74177; 80053; 83690; 84484; 85025; 93005; 93010; 94644; 94664; 99284-25; Q9967

== ENCOUNTER 2024-06-27 09:36 | Emergency (ER) | payer SELFPAY ==
[~2024-06-27] VITALS: Ht 167.6 cm; Wt 81.7 kg
[2024-06-27 10:19] VITALS: BP 123/78
[2024-06-27] MEDS ORDERED: Golytely Solu4000 ML PO (10:24)
== END 2024-06-27 10:24 | disposition home or self-care (01) ==
LOC: ER 09:36
DX: K59.00 Constipation, unspecified (principal); I10 Essential (primary) hypertension; J44.9 Chronic obstructive pulmonary disease, unspecified; F17.210 Nicotine dependence, cigarettes, uncomplicated; Z79.02 Long term (current) use of antithrombotics/antiplatelets; Z79.52 Long term (current) use of systemic steroids; Z79.899 Other long term (current) drug therapy
CPT/HCPCS: 99283

== ENCOUNTER 2024-07-13 11:32 | Emergency (ER) | payer SELFPAY ==
[~2024-07-13] VITALS: Ht 167.6 cm; Wt 90.7 kg
[~2024-07-13 11:32] MED LIST changes: +Golytely Solu4000 ML PO
[2024-07-13 11:38] VITALS: BP 136/75
== END 2024-07-13 12:20 | disposition home or self-care (01) ==
LOC: ER 11:32
DX: J44.89 Other specified chronic obstructive pulmonary disease (principal); J45.901 Unspecified asthma with (acute) exacerbation; F17.210 Nicotine dependence, cigarettes, uncomplicated; I10 Essential (primary) hypertension; I25.2 Old myocardial infarction; Z79.52 Long term (current) use of systemic steroids; Z79.01 Long term (current) use of anticoagulants; Z79.899 Other long term (current) drug therapy
CPT/HCPCS: 71045; 93005; 93010; 99284-25

== ENCOUNTER 2024-07-23 07:19 | Emergency (ER) | payer SELFPAY ==
[~2024-07-23] VITALS: Ht 172.7 cm; Wt 90.7 kg
[2024-07-23 08:18] VITALS: BP 139/86
[2024-07-23] MEDS ORDERED: MAGCIT300 PO (08:22)
== END 2024-07-23 08:20 | disposition home or self-care (01) ==
LOC: ER 07:19
DX: K59.00 Constipation, unspecified (principal); I25.2 Old myocardial infarction; I10 Essential (primary) hypertension; J44.9 Chronic obstructive pulmonary disease, unspecified; G31.84 Mild cognitive impairment of uncertain or unknown etiology; Z85.118 Personal history of other malignant neoplasm of bronchus and lung; Z79.02 Long term (current) use of antithrombotics/antiplatelets; Z79.52 Long term (current) use of systemic steroids; Z79.899 Other long term (current) drug therapy; Z59.89 Other problems related to housing and economic circumstances
CPT/HCPCS: 99283

== ENCOUNTER 2024-08-06 10:02 | Emergency (ER) | payer SELFPAY ==
[~2024-08-06] VITALS: Ht 177.8 cm; Wt 86.2 kg
[2024-08-06 10:29] VITALS: BP 128/97
[2024-08-06] MEDS ORDERED: Golytely Solu4000 ML PO (10:34)
== END 2024-08-06 10:36 | disposition home or self-care (01) ==
LOC: ER 10:02
DX: K59.00 Constipation, unspecified (principal); I25.2 Old myocardial infarction; I10 Essential (primary) hypertension; J44.9 Chronic obstructive pulmonary disease, unspecified; F17.210 Nicotine dependence, cigarettes, uncomplicated; Z79.899 Other long term (current) drug therapy; Z79.52 Long term (current) use of systemic steroids; Z95.5 Presence of coronary angioplasty implant and graft
CPT/HCPCS: 99283

== ENCOUNTER 2024-08-09 17:34 | Emergency (ER) | payer SELFPAY ==
[~2024-08-09] VITALS: Ht 177.8 cm; Wt 83.9 kg
[2024-08-09 17:53] VITALS: BP 150/75
== END 2024-08-09 19:56 | disposition home or self-care (01) ==
LOC: ER 17:34
DX: K59.00 Constipation, unspecified (principal); Z53.29 Procedure and treatment not carried out because of patient's decision for other reasons
CPT/HCPCS: 99281

== ENCOUNTER 2024-08-24 15:58 | Emergency (ER) | payer SELFPAY ==
[~2024-08-24] VITALS: Ht 177.8 cm; Wt 97.5 kg
[2024-08-24 16:17] VITALS: BP 130/89
== END 2024-08-24 17:40 | disposition left against medical advice (07) ==
LOC: ER 15:58
DX: K59.00 Constipation, unspecified (principal); R10.9 Unspecified abdominal pain; Z53.29 Procedure and treatment not carried out because of patient's decision for other reasons
CPT/HCPCS: 74018; 99281-25

== ENCOUNTER 2024-08-25 17:52 | Emergency (ER) | payer SELFPAY ==
[~2024-08-25] VITALS: Ht 177.8 cm; Wt 90.7 kg
[2024-08-25 18:12] VITALS: BP 146/75
[2024-08-25] MEDS ORDERED: Ipratropium/Albuterol SulF 2.5-0.5MG/3 ML Amp INH PRN (18:15)
[2024-08-25 18:42] LABS: BASOPHILS ABSOLUTE AUTO 0.06 K/mm3 (0.00-0.23); BASOPHILS PERCENT AUTO 1 % (0-2); EOSINOPHILS ABSOLUTE AUTO 0.14 K/mm3 (0.00-0.68); EOSINOPHILS PERCENT AUTO 1 % (0-6); Hematocrit 35.1 % (37.0-53.0); Hemoglobin 11.2 g/dL (13.5-17.5); IMMATURE GRAN ABSOLUTE AUTO 0.05 K/mm3 (0.00-0.10); IMMATURE GRAN PERCENT AUTO 0 % (0-1); LYMPHOCYTES ABSOLUTE AUTO 0.68 K/mm3 (0.84-5.20); LYMPHOCYTES PERCENT AUTO 6 % (21-46); MONOCYTES PERCENT AUTO 10 % (4-13); Mean Corpuscular HGB 29.2 pg (26.0-34.0); Mean Corpuscular HGB Conc 31.9 g/dL (31.5-36.5); Mean Corpuscular Volume 92 fL (80-100); Mean Platelet Volume 8.3 fL (9.1-12.4); NEUTROPHILS ABSOLUTE AUTO 9.66 K/mm3 (1.96-9.15); NEUTROPHILS PERCENT AUTO 82 % (41-73); Platelet Count 557 K/mm3 (150-400); RDW Coefficient Variation 16.4 % (11.7-14.2); RDW Standard Deviation 55.2 fL (35.1-46.3); Red Blood Cell Count 3.83 M/mm3 (4.30-5.90); White Blood Cell Count 11.79 K/mm3 (4.00-11.30)
[2024-08-25 19:05] LABS: Albumin, Blood 2.7 g/dL (3.4-5.0); Albumin/Globulin Ratio 0.6 (0.8-1.8); Bilirubin, Total 0.3 mg/dL (0.1-1.0); Bun/Creatinine Ratio 21.9 (12.0-20.0); Calcium, Blood 9.4 mg/dL (8.5-10.1); Creatinine, Blood 1.6 mg/dL (0.60-1.20); Globulin, Blood 4.7 g/dL (2.2-4.0); Potassium, Blood 3.5 mmol/L (3.5-5.5); Total Protein, Blood 7.4 g/dL (6.4-8.2)
== END 2024-08-25 19:55 | disposition left against medical advice (07) ==
LOC: ER 17:52
PROVIDERS: Emergency Medicine
DX: Z53.21 Procedure and treatment not carried out due to patient leaving prior to being seen by health care provider (principal)
CPT/HCPCS: 71046; 80053; 84484; 85025; 93005; 93010

== ENCOUNTER 2024-08-29 06:28 | Emergency (ER) | payer SELFPAY | END 2024-08-29 07:20 | disposition left against medical advice (07) | LOC: ER 06:28 | DX: K59.00 Constipation, unspecified (principal); Z53.29 Procedure and treatment not carried out because of patient's decision for other reasons | CPT/HCPCS: 99281 ==

== ENCOUNTER 2024-08-29 08:29 | Emergency (ER) | payer SELFPAY ==
[~2024-08-29] VITALS: Ht 180.3 cm; Wt 90.7 kg
[2024-08-29 09:12] VITALS: BP 164/77
[2024-08-29] MEDS ORDERED: Magnesium Citrate 300 ML BTL PO ONE (09:20)
== END 2024-08-29 09:21 | disposition home or self-care (01) ==
LOC: ER 08:29
DX: K59.00 Constipation, unspecified (principal); J44.9 Chronic obstructive pulmonary disease, unspecified; F17.210 Nicotine dependence, cigarettes, uncomplicated; Z59.89 Other problems related to housing and economic circumstances; Z79.899 Other long term (current) drug therapy; Z79.02 Long term (current) use of antithrombotics/antiplatelets
CPT/HCPCS: 99282; A9270

== ENCOUNTER 2024-08-31 23:32 | Emergency (ER) | payer SELFPAY ==
[~2024-08-31] VITALS: Ht 177.8 cm; Wt 90.7 kg
[2024-09-01 00:47] VITALS: BP 113/70
== END 2024-09-01 02:15 | disposition left against medical advice (07) ==
LOC: ER 23:32
DX: R06.00 Dyspnea, unspecified (principal); R06.02 Shortness of breath; R07.9 Chest pain, unspecified; Z53.21 Procedure and treatment not carried out due to patient leaving prior to being seen by health care provider
CPT/HCPCS: 93005; 93010

== ENCOUNTER 2024-09-01 16:40 | Emergency (ER) | payer SELFPAY ==
[~2024-09-01] VITALS: Ht 172.7 cm; Wt 90.7 kg
[2024-09-01 17:33] VITALS: BP 135/71
== END 2024-09-01 21:43 | disposition left against medical advice (07) ==
LOC: ER 16:40
DX: R06.02 Shortness of breath (principal); Z53.29 Procedure and treatment not carried out because of patient's decision for other reasons
CPT/HCPCS: 71046; 93005; 93010

== ENCOUNTER 2024-09-12 21:48 | Emergency (ER) | payer SELFPAY ==
[~2024-09-12] VITALS: Ht 167.6 cm; Wt 77.1 kg
[2024-09-12 21:57] VITALS: BP 147/63
== END 2024-09-12 22:02 | disposition home or self-care (01) ==
LOC: ER 21:48
DX: J44.9 Chronic obstructive pulmonary disease, unspecified (principal); F17.210 Nicotine dependence, cigarettes, uncomplicated; Z79.52 Long term (current) use of systemic steroids; Z79.899 Other long term (current) drug therapy
CPT/HCPCS: 99282

== ENCOUNTER 2024-09-19 01:59 | Emergency (ER) | payer SELFPAY ==
[~2024-09-19] VITALS: Ht 177.8 cm; Wt 86.2 kg
[2024-09-19 02:15] VITALS: BP 112/70
== END 2024-09-19 02:31 | disposition left against medical advice (07) ==
LOC: ER 01:59
DX: R06.02 Shortness of breath (principal); Z53.29 Procedure and treatment not carried out because of patient's decision for other reasons
CPT/HCPCS: 93005; 93010

== ENCOUNTER 2024-12-06 02:50 | Emergency (ER) | payer MEDICARE ==
[~2024-12-06] VITALS: Ht 177.8 cm; Wt 77.1 kg
[2024-12-06 03:30] VITALS: BP 127/75
[2024-12-06] MEDS ORDERED: PredniSONE 20 MG Tab PO ONE (03:50)
[2024-12-06] MEDS ORDERED: DELTASONE20 MG PO (03:52)
== END 2024-12-06 04:01 | disposition home or self-care (01) ==
LOC: ER 02:50
DX: J44.1 Chronic obstructive pulmonary disease with (acute) exacerbation (principal); I10 Essential (primary) hypertension; I25.2 Old myocardial infarction; F17.210 Nicotine dependence, cigarettes, uncomplicated; Z79.899 Other long term (current) drug therapy
CPT/HCPCS: 71046; 93005; 93010; 99285-25; J7512

== ENCOUNTER 2024-12-13 03:45 | Emergency (ER) | payer SELFPAY ==
[~2024-12-13] VITALS: Ht 177.8 cm; Wt 63.5 kg
[~2024-12-13 03:45] MED LIST changes: +DELTASONE20 MG PO
[2024-12-13 03:48] VITALS: BP 130/78
== END 2024-12-13 05:22 | disposition left against medical advice (07) ==
LOC: ER 03:45
DX: Z53.21 Procedure and treatment not carried out due to patient leaving prior to being seen by health care provider (principal)
CPT/HCPCS: 93005; 93010

== ENCOUNTER 2024-12-26 13:03 | Inpatient (IN) | payer MEDICARE ==
[~2024-12-26] VITALS: Ht 177.8 cm; Wt 61.0 kg
[2024-12-26 14:11] LABS: BASOPHILS ABSOLUTE AUTO 0.02 K/mm3 (0.00-0.23); BASOPHILS PERCENT AUTO 0 % (0-2); EOSINOPHILS ABSOLUTE AUTO 0.01 K/mm3 (0.00-0.68); EOSINOPHILS PERCENT AUTO 0 % (0-6); Hematocrit 30.6 % (37.0-53.0); Hemoglobin 9.4 g/dL (13.5-17.5); IMMATURE GRAN ABSOLUTE AUTO 0.11 K/mm3 (0.00-0.10); IMMATURE GRAN PERCENT AUTO 1 % (0-1); LYMPHOCYTES ABSOLUTE AUTO 0.17 K/mm3 (0.84-5.20); LYMPHOCYTES PERCENT AUTO 1 % (21-46); MONOCYTES ABSOLUTE AUTO 0.72 K/mm3 (0.16-1.47); MONOCYTES PERCENT AUTO 4 % (4-13); Mean Corpuscular HGB 27.9 pg (26.0-34.0); Mean Corpuscular HGB Conc 30.7 g/dL (31.5-36.5); Mean Corpuscular Volume 91 fL (80-100); Mean Platelet Volume 8.9 fL (9.1-12.4); NEUTROPHILS ABSOLUTE AUTO 19.05 K/mm3 (1.96-9.15); NEUTROPHILS PERCENT AUTO 95 % (41-73); Platelet Count 395 K/mm3 (150-400); RDW Coefficient Variation 19.1 % (11.7-14.2); RDW Standard Deviation 64.2 fL (35.1-46.3); Red Blood Cell Count 3.37 M/mm3 (4.30-5.90); White Blood Cell Count 20.08 K/mm3 (4.00-11.30)
[2024-12-26 14:40] LABS: Albumin, Blood 3.1 g/dL (3.4-5.0); Albumin/Globulin Ratio 0.9 (0.8-1.8); Bilirubin, Total 0.3 mg/dL (0.1-1.0); Bun/Creatinine Ratio 47.3 (12.0-20.0); Calcium, Blood 8.8 mg/dL (8.5-10.1); Creatinine, Blood 2.03 mg/dL (0.60-1.20); Globulin, Blood 3.5 g/dL (2.2-4.0); Potassium, Blood 3.8 mmol/L (3.5-5.5); Total Protein, Blood 6.6 g/dL (6.4-8.2)
[2024-12-26] MEDS ORDERED: NS 1,000 ML IV SCH ×3 (15:15→19:15)
[2024-12-26 16:18] LABS: Base Excess Venous -17.2 mmol/L; Bicarbonate Venous 12.3 mmol/L (24.0-30.0); PCO2 Venous 26.9 mmHg (38-42)
[2024-12-26] MEDS ORDERED: CefTRIAXone Sodium 1,000 MG in NS 100 ML IV ONE (16:35)
[2024-12-26 18:19] LABS: Source, Urine Clean Catch
[2024-12-26 18:26] LABS: Acetaminophen, Random 9.6 ug/mL (10.0-30.0); Magnesium, Blood 1.7 mg/dL (1.6-2.4); Salicylate 5.9 mg/dL (2.8-20.0)
[2024-12-26 18:27] LABS: Appearance, Urine Clear (Clear); Bilirubin, Urine Neg (Neg); Blood, Urine 5+ (Neg); Color, Urine Yellow (P-Yellow); Glucose Qualitative, Urine Neg (Neg); Ketones, Urine Neg (Neg); Leukocyte Esterase, Urine 2+ (Neg); Nitrite, Urine Neg (Neg); Protein, Urine 2+ (Neg); Urobilinogen, Urine NORM (Normal)
[2024-12-26 18:40] LABS: White Blood Cells, Urine 25-50 /hpf (0-5)
[2024-12-26 18:41] LABS: Squamous Epithelial Cells Few /hpf (Few); Triple Phosphate Crystals Few /hpf
[2024-12-26 18:42] LABS: Bacteria Mod /hpf
[2024-12-26] MEDS ORDERED: Albuterol 2.5 MG/3 ML VIAL INH PRN (18:55)
[2024-12-26] MEDS ORDERED: Ondansetron HCl 2 MG / ML 2ML Vial IV PRN (18:55)
[2024-12-26] MEDS ORDERED: Ipratropium/Albuterol SulF 2.5-0.5MG/3 ML Amp INH SCH (19:00)
[2024-12-26 19:10] LABS: Beta-hydroxybutyrate 3.5 mg/dL (0.2-2.8)
[2024-12-26 19:11] LABS: Phosphorus, Blood 3.2 mg/dL (2.5-4.9)
[2024-12-26 19:14] LABS: Ethanol (Alcohol), Blood, Med <3 mg/dL
[2024-12-26 20:54] VITALS: BP 146/72
[2024-12-26] MEDS ORDERED: Heparin Sodium,Porcine 5,000 UNIT/0.5 ML SDV SC SCH (21:00)
[2024-12-26] MEDS ORDERED: Lactobacil 2-S.Thermo-Bifido 1 1 Cap PO SCH (21:00)
[2024-12-26 22:42] LABS: Base Excess Venous -15.5 mmol/L; Bicarbonate Venous 13.2 mmol/L (24.0-30.0); PCO2 Venous 32.6 mmHg (38-42)
[2024-12-27] VITALS (7 sets, daily range): BP systolic 108–156; BP diastolic 70–88
--- NOTE | 2024-12-27 00:49 | NUR ---
ASSUMPTION OF CARE REPORTS RECIEVED FROM JESÚS YOUNG. PT ARRIVED TO PCU AROUND 2040. PT SLID FROM [facility] TO PCU BED. HE IS A&O X4, CALM, COOPERATIVE TO CARE. PT CONFUSED AT TIMES. HR IN THE 80'S, SINUS RHYTHM, HE DENIES CP/PRESSURE, NUMB/TINGLING, SBP STABLE. O2 >92% ON 3L VIA NC, PT ON 2-3L AT BASELINE. HE HAS SOME SOB ON EXERTION. CHAPMAN CATH IN PLACE, DRAINING TO GRAVITY. PT WITH YELLOW URINE, SEDIMENTATION NOTED IN CATH. PT HAS NS RUNNING AT 150. PT RESTING IN BED AT THIS TIME. CALL LIGHT IN REACH.
[2024-12-27] MEDS ORDERED: TAMS.4ER PO (03:37)
[2024-12-27] MEDS ORDERED: ESCI10 PO (03:37)
[2024-12-27] MEDS ORDERED: ATOR80 PO (03:38)
[2024-12-27] MEDS ORDERED: POTA10T PO (03:38)
[2024-12-27] MEDS ORDERED: PANT40 PO (03:38)
[2024-12-27] MEDS ORDERED: SENN187 PO (03:39)
[2024-12-27] MEDS ORDERED: Prozac20 MG PO (03:39)
[2024-12-27 04:12] LABS: BASOPHILS PERCENT AUTO 0 % (0-2); EOSINOPHILS PERCENT AUTO 0 % (0-6); Hematocrit 25.6 % (37.0-53.0); Hemoglobin 7.6 g/dL (13.5-17.5); IMMATURE GRAN ABSOLUTE AUTO 0.06 K/mm3 (0.00-0.10); IMMATURE GRAN PERCENT AUTO 1 % (0-1); LYMPHOCYTES ABSOLUTE AUTO 0.05 K/mm3 (0.84-5.20); LYMPHOCYTES PERCENT AUTO 0 % (21-46); MONOCYTES ABSOLUTE AUTO 0.25 K/mm3 (0.16-1.47); MONOCYTES PERCENT AUTO 2 % (4-13); Mean Corpuscular HGB 27.6 pg (26.0-34.0); Mean Corpuscular HGB Conc 29.7 g/dL (31.5-36.5); Mean Corpuscular Volume 93 fL (80-100); Mean Platelet Volume 9.6 fL (9.1-12.4); NEUTROPHILS ABSOLUTE AUTO 12.24 K/mm3 (1.96-9.15); NEUTROPHILS PERCENT AUTO 97 % (41-73); Platelet Count 324 K/mm3 (150-400); RDW Coefficient Variation 19.2 % (11.7-14.2); RDW Standard Deviation 64.8 fL (35.1-46.3); Red Blood Cell Count 2.75 M/mm3 (4.30-5.90)
[2024-12-27 04:38] LABS: Albumin, Blood 2.4 g/dL (3.4-5.0); Albumin/Globulin Ratio 0.8 (0.8-1.8); Bilirubin, Total 0.1 mg/dL (0.1-1.0); Bun/Creatinine Ratio 49.7 (12.0-20.0); Calcium, Blood 7.8 mg/dL (8.5-10.1); Creatinine, Blood 1.57 mg/dL (0.60-1.20); Globulin, Blood 3.2 g/dL (2.2-4.0); Magnesium, Blood 1.8 mg/dL (1.6-2.4); Potassium, Blood 3.6 mmol/L (3.5-5.5); Total Protein, Blood 5.6 g/dL (6.4-8.2)
--- NOTE | 2024-12-27 04:55 | NUR ---
UPDATE PT HAD MORNING LABS COMPLETED. PT HAD DROP IN HEMOGLOBIN FROM 9.4 TO 7.6. PT HAS NOT HAD A BM AND DENIES ANY BLOOD IN HIS STOOL WITH LAST BM. CALL PLACED TO PROVIDER. H&H ORDERED FOR 1000 TO RECHECK LEVEL. WILL MONITOR PT.
--- NOTE | 2024-12-27 05:09 | NUR ---
SHIFT SUMMARY PT A&O X4, CALM, COOPERATIVE TO CARE. HE IS FORGETFUL AT TIMES. HR IN THE 80'S, SINUS RHYTHM. HE DENIES ANY CP/PRESSURE, NUMB/TINGLING, SBP STABLE. O2 >92% ON 3L VIA NC, PT ON 2-3L AT BASELINE. HE DENIES SOB AT THIS TIME. HE HAS CHAPMAN CATH IN PLACE, DRAINING TO GRAVITY. YELLOW URINE PRESENT, SEDIMENTATION NOTED IN CATH BAG. +BS, HE DNEIES N/V. PT HAD LABS COMPLETED THIS AM, HHGB HAD DROPPED FROM 9.4 TO 7.6, H&H PLACED FOR LATER THIS MORNING. NO ACUTE CHANGES T/O SHIFT. PT RESTING IN BED AT THIS TIME. WILL MONITOR PT AND REPORT TO ONCOMING RN.
[2024-12-27] MEDS ORDERED: Sodium Bicarbonate 650 MG Tab PO SCH (09:00)
[2024-12-27] MEDS ORDERED: CefTRIAXone Sodium 1,000 MG in NS 100 ML IV SCH (09:00)
[2024-12-27] MEDS ORDERED: Clopidogrel Bisulfate 75 MG Tab PO SCH (09:00)
[2024-12-27 10:53] LABS: Hematocrit 25.3 % (37.0-53.0); Hemoglobin 7.8 g/dL (13.5-17.5)
[2024-12-27] MEDS ORDERED: Nicotine 21 MG PATCH TOP SCH (10:55)
[2024-12-27] MEDS ORDERED: Protein Supplement 30 ML UD PO SCH (14:00)
--- NOTE | 2024-12-27 15:50 | NUR ---
ASSUMED CARE TO SURGICAL FLOOR PT ARRIVED TO SURG FLOOR AT 1550 VIA WC. 2 PERSON TRANSFER TO HOSPITAL BED. LUNG SOUNDS DIMINISHED ON 2L OF O2. VSS. CHAPMAN IN PLACE W/CLEAR YELLOW URINE WITH SEDIMENT. IVF RUNNING @150ML/HR. PT IS RESTING IN BED WITH CALL LIGHT WITHIN REACH. BED ALARM ON.
[2024-12-27 16:58] LABS: Percent Saturation 12.7 % (20.0-50.0)
--- NOTE | 2024-12-27 17:18 | NUR ---
HANDOFF TRANSFER TO SURGICAL PATIENT AOX2-3 ABLE TO MAKE NEEDS KNOWN AND HARD OF HEARING. HE DENIES CHEST PAIN AND SOB. HIS VITALS ARE STABLE AND O2 SATS ARE GREATER THAN 95% ON ROOM AIR. HE IS WEAK BUT ABLE TO STAND AND PIVOT TO CHAIR WITH A ONE ASSIST. HIS LUNG SOUNDS ARE DIMINISHED. HIS CHAPMAN IS DRAINING CLEAR YELLOW URINE. REPORT WAS CALLED TO THE NURSE ALL QUESTIONS ANSWERED
--- NOTE | 2024-12-27 18:24 | NUR ---
SHIFT SUMMARY PT. CURRENTLY RESTING IN BED W/ AT BEDSIDE. A+O TIMES 4. VSS WITH O2 SAT 100% ON 2L O2. PT. IS TOLERATING LIQUIDS WELL, BUT DENIES FOOD. CHAPMAN DRAINING CLEAR YELLOW URINE WITH SEDIMENT. CALL LIGHT IS WITHIN REACH AND BED ALARM IS ON.
[2024-12-27] MEDS ORDERED: Acetaminophen 500 MG Tab PO PRN (21:50)
[2024-12-28] VITALS (8 sets, daily range): BP systolic 115–143; BP diastolic 67–86
--- NOTE | 2024-12-28 04:42 | NUR ---
SHIFT SUMMARY PT HAS RESTED OFF AND ON. PT IS CONFUSED, KNOWS PLACE. BUT CONFUSED TO SITUATION, DOES NOT KNOW YEAR, PRESIDENT OR DATE. ABLE TO FOLLOW DIRECTIONS. IV FLUIDS INFUSING. CHAPMAN IN PLACE PATENT AND DRAINING. PLAN OF CARE REMAINS UNCHANGED. VITALS ARE STABLE, BED ALARM IN PLACE. BED IN LOWEST POSITION, CALL LIGHT WITHIN REACH.
[2024-12-28 05:41] LABS: Hematocrit 24.6 % (37.0-53.0); Hemoglobin 7.3 g/dL (13.5-17.5); Mean Corpuscular HGB 27.2 pg (26.0-34.0); Mean Corpuscular HGB Conc 29.7 g/dL (31.5-36.5); Mean Corpuscular Volume 92 fL (80-100); Mean Platelet Volume 9.5 fL (9.1-12.4); Platelet Count 330 K/mm3 (150-400); RDW Coefficient Variation 19.1 % (11.7-14.2); RDW Standard Deviation 63.5 fL (35.1-46.3); Red Blood Cell Count 2.68 M/mm3 (4.30-5.90); White Blood Cell Count 10.67 K/mm3 (4.00-11.30)
[2024-12-28 06:07] LABS: Bun/Creatinine Ratio 54.4 (12.0-20.0); Calcium, Blood 7.6 mg/dL (8.5-10.1); Creatinine, Blood 0.99 mg/dL (0.60-1.20)
[2024-12-28] MEDS ORDERED: Potassium Chloride 20 MEQ TabCR PO ONE (07:45)
[2024-12-28] MEDS ORDERED: Iron Dextran 50 MG / ML 2ML Vial IV ONE (08:10)
[2024-12-28] MEDS ORDERED: Iron Dextran 975 MG in NS 250 ML IV ONE (09:00)
[2024-12-28 11:30] LABS: Stool Occult Blood Guaiac 1 Pos (Neg)
[2024-12-28] MEDS ORDERED: Nystatin 100,000 Unit/ML Susp 5 ML UDC MT SCH (13:00)
--- NOTE | 2024-12-28 16:02 | NUR ---
SHIFT SUMMARY CONT IV HYDRATION PER ORDERS AND ENCOURAGING PO INTAKE. CHAPMAN INTACT WITH YELLOW URINE PRESENT IN BAG. REPEAT LABS IN AM. DR. MEYERS NOTIFIED OF GI BLEED CONSULT. POSITIVE OCCULT STOOL SAMPLE TODAY. PT ON 2L O2 VIA NC WHICH IS HIS BASELINE PER PT . PT ALERT AND ORIENTED TO SELF, FOLLOWING DIRECTIONS AND PERSON, BUT CONFUSED ABOUT DATE/TIME AND TREATMENT PLAN AT TIMES. WAS AT BEDSIDE FOR MAJORITY OF DAY TODAY FOR SUPPORT. UP TO CHAIR OR BSC WITH 1-2 ASSIST FOR WEAKNESS. BED/CHAIR ALARMS FOR SAFETY. CALL LIGHT WITHIN REACH.
[2024-12-29] MEDS ORDERED: Amitriptyline HCl 25 MG Tab PO SCH (00:45)
[2024-12-29] MEDS ORDERED: FentaNYL Citrate 50 MCG/ML 2 ML Injection IV PRN (00:45)
[2024-12-29 04:18] VITALS: BP 134/73
[2024-12-29 06:09] LABS: Hematocrit 23.7 % (37.0-53.0); Hemoglobin 7.4 g/dL (13.5-17.5); Mean Corpuscular HGB 28.5 pg (26.0-34.0); Mean Corpuscular HGB Conc 31.2 g/dL (31.5-36.5); Mean Corpuscular Volume 91 fL (80-100); Mean Platelet Volume 9.4 fL (9.1-12.4); Platelet Count 307 K/mm3 (150-400); RDW Coefficient Variation 19.2 % (11.7-14.2); RDW Standard Deviation 63.7 fL (35.1-46.3); White Blood Cell Count 8.09 K/mm3 (4.00-11.30)
[2024-12-29 06:33] LABS: Bun/Creatinine Ratio 43.7 (12.0-20.0); Creatinine, Blood 0.71 mg/dL (0.60-1.20); Potassium, Blood 2.9 mmol/L (3.5-5.5)
--- NOTE | 2024-12-29 06:47 | NUR ---
SHIFT SUMMARY PATIENT NEEDING TO BE REPOSITIONED SEVERL TIMES T/O NOC. PATIENT USES CALL LIGHT APPROP. MAKES HIS NEEDS KNOWS. PER REPORT HX DEMENTIA. REORIENTED TO DATE AND TIME. FAMILY AT BEDSIDE START OF SHIFT. IVF INFUSING 150 ML/HR RIGHT AC, PATIENT BENDS ARM FREQUENTLY, REMINDED SEVERAL TIMES TO KEEP ARM STRAIGHT. PATIENT C/O SOB AT ONE TIME, WAS SLID DOWN IN THE BED. EXPLAINED TO HIM THAT HE WAS NOT BENDING IN THE RIGHT PLACES. RT ASSISTED ME WITH MOVING PT UP IN THE BED. A FEW MINUTES AFTER HE SAID "YOU WERE RIGHT THAT WORKED." CHAPMAN PATENT WITH ADEQUENT AMT OF URINE. END OF SHIFT URINE CLEAR LIGHT YELLOW. MEDICATED PATIENT SCHEDULED. NO ACUTE CHANGES T/O NOC.
[2024-12-29] MEDS ORDERED: Potassium Chloride 20 MEQ TabCR PO ONE ×3 (07:30→16:25)
[2024-12-29 07:35] VITALS: BP 111/72
[2024-12-29] MEDS ORDERED: Citalopram Hydrobromide 20 MG Tab PO SCH (09:00)
--- NOTE | 2024-12-29 11:55 | NUR ---
AGREE WITH STUDENT NURSE SHIFT ASSESSMENT WITH MY EDITS TO INTEGUMENTARY SYSTEM.
[2024-12-29] MEDS ORDERED: Peg/Electrolytes 4,000 ML BTL PO SCH (12:00)
[2024-12-29 15:38] VITALS: BP 126/79
--- NOTE | 2024-12-29 18:37 | NUR ---
SHIFT SUMMARY ENCOURAGING GOLYTELY FOR EGD/COLONOSCOPY TOMORROW. ALSO PLANNING TO HAVE ECHO TOMORROW PREOP. POSITIVE BLOOD CXS--DR. BURTON NOTIFIED AND PLANNING TO ORDER ABX. IVF INFUSING PER ORDERS. CHAPMAN WITH CLEAR YELLOW URINE. UP TO CHAIR MULTIPLE TIMES WITH 1-2 ASSIST. ON 2L O2 VIA NC--BASELINE. USES CALL LIGHT APPROPRIATELY. BED ALARM FOR SAFETY R/T HX DEMENTIA. PT HAS BEEN A+O X3 ALL DAY. AT BEDSIDE FOR SUPPORT.
[2024-12-29] MEDS ORDERED: Vancomycin HCL 1,250 MG in NS 250 ML IV ONE (18:55)
[2024-12-29 19:35] VITALS: BP 137/74
[2024-12-29] MEDS ORDERED: Sodium, Potassium,Mag Sulfates 354 ML PO ONE (19:35)
--- NOTE | 2024-12-29 21:06 | NUR ---
DOCTOR COMMUNICTION THIS RN REACHED OUTTO GEN SURG D/T PT BEING UNABLE TO DRINK THE 1 GALLON OF GOLYTELY, RECIEVED ORDER FOR SURPREP.
[2024-12-30] VITALS (13 sets, daily range): BP systolic 119–163; BP diastolic 71–107
--- NOTE | 2024-12-30 06:39 | NUR ---
SHIFT SUMMARY PATIENT DID DRINK ONE OF THE BOTTLES IN THE KIT THAT THE PRACTICE ASSISTANT ORDERED. PATIENT WAS UO IN RECLINER AT START OF SHIFT AND BACK TO BED WHEN HE WAS READY. PATIENT HAD A FEW LARGE LIQUID BROWNISH/BLACK STOOL DURING THE NIGHT. PATIENT REFUSED TO DRINK THE OTHER BOTTLE. PT GOT UP GOOD FROM BED TO COMMODE FOR ME BUT DOES NOT GIVE THE EFFORT FOR THE PARKING LOT SIGNALER. PT SAYS HE WANTS TO GO HOME AND HE IS NOT HAVING THESE TEST DONE. HAD TO REORIENT PT A COUPLE TIMES TO WHY HE IS HERE. PATIENT DID NOT GET TO SLEEP MUCH T/O NOC BECAUSE OF BOWEL PREP. IVF INFUSING. SCHEDULED MEDS GIVEN ORDERED. WILL GIVE REPORT TO RN TAKING THIS PATIENT.
[2024-12-30 06:50] LABS: Hematocrit 22.1 % (37.0-53.0); Hemoglobin 6.9 g/dL (13.5-17.5); Mean Corpuscular HGB Conc 31.2 g/dL (31.5-36.5); Mean Corpuscular Volume 90 fL (80-100); Mean Platelet Volume 9.3 fL (9.1-12.4); Platelet Count 279 K/mm3 (150-400); RDW Coefficient Variation 19.1 % (11.7-14.2); RDW Standard Deviation 62.2 fL (35.1-46.3); Red Blood Cell Count 2.46 M/mm3 (4.30-5.90); White Blood Cell Count 8.32 K/mm3 (4.00-11.30)
[2024-12-30 07:11] LABS: Bun/Creatinine Ratio 27.4 (12.0-20.0); Calcium, Blood 6.9 mg/dL (8.5-10.1); Creatinine, Blood 0.62 mg/dL (0.60-1.20); Potassium, Blood 3.5 mmol/L (3.5-5.5)
[2024-12-30] MEDS ORDERED: Vancomycin HCL 1,000 MG in NS 250 ML IV SCH (09:00)
--- NOTE | 2024-12-30 10:36 | NUR ---
MD LAMA CONTACTED UNIT WITH UPDATE - PLAN TO DO SCOPE TOMORROW. PATIENT ABLE TO HAVE CLEAR LIQUIDS TODAY - NPO AT MIDNIGHT. PRIMARY RN NOTIFIED.
[2024-12-30] MEDS ORDERED: Lactated Ringer's 1,000 ML IV SCH (11:30)
--- NOTE | 2024-12-30 11:45 | NUR ---
SCOPE: PT TO EGD AT THIS TIME. PT TO RECEIVE 1 UNIT PRBC'S. DAY SURGERY NURSE TOOK BLOOD TO START IT PRIOR TO PROCEDURE. FAMILY AT BEDSIDE, UPDATED ON PLAN OF CARE. CHAPMAN EMPTIED PRIOR TO PROCEDURE. WILL CONT TO MONITOR WHEN RETURNS TO ROOM.
--- NOTE | 2024-12-30 12:35 | NUR ---
PT HAS 22G IV TO LEFT UPPER ARM THAT FLUSHES WELL AND FLOWS TO GRAVITY. MULTIPLE FAILED RN ATTEMPT FOR LARGER CATHETER PLACEMENT PRIOR TO BLOOD ADMIN AND EGD START, AR RN FROM ICU CALLED TO PLACE POWERGLIDE. POWERGLIDE PLACEMENT SUCCESSFUL TO RIGHT UPPER ARM. FLUSHES WELL AND FLOWS TO GRAVITY.
--- NOTE | 2024-12-30 12:41 | NUR ---
12/30/24 1241 Ovidio White History, Chart, Medications and Allergies reviewed before start of procedure.See Anesthesia record.
[2024-12-30] MEDS ORDERED: Lidocaine HCl 4% 5 ML SDA ONE (12:54)
[2024-12-30] MEDS ORDERED: Lidocaine HCl 4% 5 ML SDA INH ONE (13:00)
--- NOTE | 2024-12-30 13:00 | NUR ---
DUONEB GIVEN PRIOR TO EGD PER ANESTHESIA. BLOOD TRANSFUSION STARTED PER ORDERS PRIOR TO EGD. WILL PROCEED WITH EGD.
[2024-12-30] MEDS ORDERED: propofoL 40 ML IV ONE (13:01)
--- NOTE | 2024-12-30 14:07 | NUR ---
POST PROCEDURE: PT RETURNED TO ROOM POST EGD. BLOOD CONT TO TRANSFUSE. VSS, HYPERTENSIVE. CHAPMAN DRAINING. PT LINENS AND ATTENDS CHANGED PRN FOR LARGE AMT BROWN LIQUID STOOL. POWERGLIDE TO RIGHT UPPER ARM. AT BEDSIDE. WILL CONT TO MONITOR.
[2024-12-30] MEDS ORDERED: Pantoprazole Sodium 40 MG Tab PO SCH (16:30)
--- NOTE | 2024-12-30 19:35 | NUR ---
PT HAS BEEN STABLE THIS SHIFT. HYPERTENSIVE AT TIMES. ADVANCED TO REG DIET THIS EVENING, TOOK SMALL BITES. POOR APPETITE. PT HAS PAIN WITH SWALLOWING. CHAPMAN DRAINING CLEAR YELLOW URINE. CONT LIQUID BM'S, NO SIGNS OF BLEEDING. PT HAD EGD WITH ULCER DISCOVERY. STARTED ON PROTONIX. REFUSES PAS. CONT IV FLUIDS. AM LABS TO REPEAT. BED ALARM ON FOR MILD CONFUSION.
[2024-12-31 04:32] VITALS: BP 137/98
--- NOTE | 2024-12-31 06:18 | NUR ---
SHIFT SUMMARY NOC. PT ADMIT FOR JORGE. PT A/O X3 AND FORGETFUL, BED ALARM SET FOR SAFETY. PT MEDICATED FOR PAIN X1 WITH TYLENOL. PT VOIDING VIA CHAPMAN, DRAINING CLEAR YELLOW URINE. PT HAVING LIQUID BMS, ATTENDS IN PLACE. FLUIDS RUNNING PER EMAR. CALL LIGHT IN REACH.
[2024-12-31 07:25] VITALS: BP 153/78
[2024-12-31 07:38] LABS: Hematocrit 23.8 % (37.0-53.0); Hemoglobin 7.8 g/dL (13.5-17.5); Mean Corpuscular HGB 28.5 pg (26.0-34.0); Mean Corpuscular HGB Conc 32.8 g/dL (31.5-36.5); Mean Corpuscular Volume 87 fL (80-100); Platelet Count 275 K/mm3 (150-400); RDW Standard Deviation 57.7 fL (35.1-46.3); Red Blood Cell Count 2.74 M/mm3 (4.30-5.90); White Blood Cell Count 9.38 K/mm3 (4.00-11.30)
[2024-12-31 08:15] LABS: Bun/Creatinine Ratio 16.5 (12.0-20.0); Calcium, Blood 6.4 mg/dL (8.5-10.1); Creatinine, Blood 0.67 mg/dL (0.60-1.20); Potassium, Blood 2.7 mmol/L (3.5-5.5)
[2024-12-31 08:19] LABS: Vancomycin, Trough 24.8 ug/mL (5.0-10.0)
[2024-12-31] MEDS ORDERED: Potassium Chloride 20 MEQ TabCR PO ONE ×2 (08:35→20:05)
[2024-12-31] MEDS ORDERED: Potassium Phosphate Dibasic 30 MM in Dextrose 5% 500 ML IV SCH (09:00)
[2024-12-31] MEDS ORDERED: Magnesium Sulf 2 GM/Water 50ML 50 ML IV ONE ×2 (09:10→20:00)
--- NOTE | 2024-12-31 11:54 | NUR ---
MORNING NOTE THIS RN ASSUMED CARE AT APPROX 0715. PATIENT ALERT AND ORIENTED X2-3. UNCLEAR TO DATE/TIME, LOCATION, EVENTS LEADING TO ADMISSION. ORIENTED TO HIMSELF AND FAMILY. EASILY REDIRECTABLE. BED ALARM/CHAIR ALARM IN PLACE FOR SAFETY. VSS. MILD EXP WHEEZE NOTED - ON ROOM AIR, SATs >90%. BREATHING TREATMENT ADMINISTERED BY RT WITH IMPROVEMENT. MAGNESIUM 0.8 AND POTASSIUM 2.7 THIS MORNING - IV AND PO REPLACEMENT ADMINISTERED PER EMAR. TOLERATING REGULAR DIET - DECREASED APPETITE. CHAPMAN IN PLACE FOR RETENTION - DRAINING YELLOW URINE TO GRAVITY. ATTENDS IN PLACE FOR BOWEL INCONTINENCE - X1 EPISODE OF LOOSE STOOL THIS MORNING. BEDBATH PERFORMED. AMBULATING WITH 1P ASSIST TO CHAIR OR BSC - WEAK GAIT. CALL LIGHT IN REACH. AT BEDSIDE FOR PORTION OF THE MORNING.
--- NOTE | 2024-12-31 12:01 | NUR ---
REPORT GIVEN TO AMANDA YOUNG TO ASSUME CARE FOLLOWING TRANSFER TO MEDICAL FLOOR
[2024-12-31 15:35] VITALS: BP 120/54
--- NOTE | 2024-12-31 16:28 | NUR ---
ASSUMPTION OF CARE: PATIENT ARRIVED TO MEDICAL FLOOR AT 1210; CARE ASSUMED BY THIS NURSE. PT A&O X3; CALM AND COOPERATIVE WITH CARE. BED & CHAIR ALARMS ON FOR SAFETY; PT BARRETT c FALLS @ HOME. PT HAS NO REQUESTS OR CONCERNS AT THIS TIME. [place].
[2024-12-31 17:32] VITALS: BP 122/82
--- NOTE | 2024-12-31 18:42 | NUR ---
CHANGE IN PATIENT CONDITION: PATIENT COMPLAINING OF INABILITY TO MOVE L FOREARM; PER PATIENT, THIS IS A CHANGE IN HIS CONDITION. PUPILS EQUAL & REACTIVE; SIGNING AGENT STRENGTH EQUAL; BP STABLE. CALL PLACED TO HOSPITALIST (DR BURTON); ORDERED STAT HEAD CT; PT OFF TO IMAGING VIA [facility].
[2024-12-31 19:06] LABS: Base Excess Venous -4.8 mmol/L; Bicarbonate Venous 20.4 mmol/L (24.0-30.0); PCO2 Venous 42.2 mmHg (38-42); pH Blood Venous 7.31 (7.34-7.37)
[2024-12-31 19:26] LABS: Beta-hydroxybutyrate 6.6 mg/dL (0.2-2.8)
--- NOTE | 2024-12-31 19:27 | NUR ---
DAY SHIFT SUMMARY: PT TRANSFER FROM SURG 224 THIS SHIFT. PT A&O X2-3; INCREASING IRRITABILITY WITH CARE SHIFT PROGRESSED; PT VERY ANXIOUS TO GO HOME. CHAPMAN IN PLACE FOR ACUTE RETENTION; DRAINING CLEAR YELLOW URINE TO GRAVITY. PT C/O CHRONIC NECK PAIN; MEDICATED PER EMAR. PT C/O DIFFICULTY MOVING L FA; NOTIFIED; STAT HEAD CT ORDERED; AWAITING RESULTS. REPORT GIVEN TO ONCOMING RN.
[2024-12-31 19:29] LABS: Bun/Creatinine Ratio 16.9 (12.0-20.0); Calcium, Blood 5.6 mg/dL (8.5-10.1); Creatinine, Blood 0.71 mg/dL (0.60-1.20); Phosphorus, Blood 2.2 mg/dL (2.5-4.9); Potassium, Blood 3.4 mmol/L (3.5-5.5)
[2024-12-31 19:30] VITALS: BP 128/79
[2024-12-31 19:30] LABS: Magnesium, Blood 1.1 mg/dL (1.6-2.4)
[2024-12-31] MEDS ORDERED: CALCIUM GLUC IN NACL, ISO-OSM 100 ML IV ONE (20:05)
[2024-12-31] MEDS ORDERED: Potassium Phosphate Dibasic 20 MM in Dextrose 5% 500 ML IV ONE (20:45)
[2024-12-31] MEDS ORDERED: NS 250 ML IV PRN (21:25)
[2025-01-01] VITALS (7 sets, daily range): BP systolic 100–130; BP diastolic 68–96
[2025-01-01 06:07] LABS: Hematocrit 21.4 % (37.0-53.0); Hemoglobin 6.8 g/dL (13.5-17.5)
--- NOTE | 2025-01-01 06:18 | NUR ---
PT AT BEGINNING OF THE SHIFT REPORTED HE WANTED TO GO HOME AND WAS GOING TO LEAVE AMA. I DISCUSSED WITH THE PT HIS CURRENT DX AND TX PLAN AND HIS ABILITY TO LEAVE AMA. PT REPORTED THAT HE WOULD STAY FOR CURRENT TX PLAN AND RE-EVALUATE LEAVING AMA IN THE MORNING. DURING SHIFT PT REPORTED FEELING SOB AND WAAS SITTING ON THE SIDE OF THE BED. VSS, SPO2 99% ON RA. A BREATHING TX WAS OFFERED TO HIM AND HE REFUSED. HE HAS REFUSED MEDS T/O THIS SHIFT SAYING HE IS SICK OF TAKING MEDICATION. EDUCATION ON THE MEDICATIONS AND THE BENEFITS OF EACH ONE WAS DISCUSSED WITH PT PLEASE SEE MAR FOR MEDICATINS THAT WERE REFUSED. DURING SHIFT PT HAD CL VALUES WHICH WERE DISCUSSED WITH HOSPITALIST. MEDICATIONS GIVEN RX. WILL CONTINUE TO MONITOR. PT REFUSED CATH CARE.
[2025-01-01 06:36] LABS: Bun/Creatinine Ratio 24.4 (12.0-20.0); Calcium, Blood 6.2 mg/dL (8.5-10.1); Creatinine, Blood 0.7 mg/dL (0.60-1.20); Magnesium, Blood 1.5 mg/dL (1.6-2.4); Phosphorus, Blood 2.5 mg/dL (2.5-4.9); Potassium, Blood 4.1 mmol/L (3.5-5.5)
[2025-01-01] MEDS ORDERED: Mag Sulfate 1 GM/D5% 100ML 100 ML IV STA (07:31)
[2025-01-01] MEDS ORDERED: NS 500 ML IV SCH (08:20)
[2025-01-01] MEDS ORDERED: Lidocaine 2% Viscous Soln 20 ML,Nystatin 100,000 Unit/ml Susp 20 ML,Mag Hydrox/Al Hydro... MT PRN (14:45)
[2025-01-01] MEDS ORDERED: CALCIUM GLUC IN NACL, ISO-OSM 50 ML IV ONE (15:20)
--- NOTE | 2025-01-01 16:09 | NUR ---
SHIFT SUMMARY PT AOX3/4, COOPERATIVE, ABLE TO MAKE NEEDS KNOWN. PT IS 1/2 PERSON ASSIST TO CHAIR. HGB WAS LOW THIS MORNING, TRANSFUSED 1 UNIT PRBC, PT IS MORE ALERT AFTER TRANFUSION. TAKING MEDICATION APPOPRITAELY, REFUSING SOME MEDICATION. FAMILY HAS BEEN BEDSIDE MOST OF SHIFT. BED IN LOWEST POISTION, CALL LIGHT WITHIN REACH.
[2025-01-02] VITALS (8 sets, daily range): BP systolic 84–118; BP diastolic 56–89
--- NOTE | 2025-01-02 05:13 | NUR ---
PT REFUSED LIQUACEL. IT WAS EXPLAINED THE IMPORTANCE OF TAKING THE MEIDCATION HE VERBALIZED UNDERSTANDING AND REFUSED IT. PT WOKE UP WITH ROUTINE VS AND BECAME ANXIOUS, CONFUSED AND FEARFUL. HE REPORTED FEELING SOB AND REQUESTED A BREATHING TX. PT WAS CONFUSED ABOUT WHERE HE WAS AND THE SITUATION, HE WAS REORIENTED.
[2025-01-02 06:22] LABS: Hematocrit 21.2 % (37.0-53.0); Hemoglobin 6.8 g/dL (13.5-17.5); Mean Corpuscular HGB 29.1 pg (26.0-34.0); Mean Corpuscular HGB Conc 32.1 g/dL (31.5-36.5); Mean Corpuscular Volume 91 fL (80-100); Mean Platelet Volume 9.8 fL (9.1-12.4); Platelet Count 239 K/mm3 (150-400); RDW Standard Deviation 58.5 fL (35.1-46.3); Red Blood Cell Count 2.34 M/mm3 (4.30-5.90); White Blood Cell Count 10.08 K/mm3 (4.00-11.30)
[2025-01-02 06:51] LABS: Bun/Creatinine Ratio 51.5 (12.0-20.0); Calcium, Blood 6.9 mg/dL (8.5-10.1); Creatinine, Blood 0.76 mg/dL (0.60-1.20); Magnesium, Blood 1.6 mg/dL (1.6-2.4); Potassium, Blood 4.1 mmol/L (3.5-5.5)
[2025-01-02] MEDS ORDERED: NS 1,000 ML IV ONE (07:35)
[2025-01-02] MEDS ORDERED: Sodium Phosphate 20 MM in Dextrose 5% 500 ML IV STA (07:50)
--- NOTE | 2025-01-02 11:02 | NUR ---
MET WITH PT AND , PT IS VERY [place], BUT APPEARS ORIENTED THIS AM. PER , THE PATIENT IS CHRONICALLY ILL. STATES SHE AND THEIR ADULT DAUGHTER CARE FOR PT REGULARLY. STATES SHE WOULD LIKE TO "GIVE IT 2 MORE DAYS" TO OPTIMIZE PT'S HEALTH. THE PATIENT STATES HE "JUST WANTS TO GO HOME," BUT STATES HE'S WILLING TO WAIT 2 MORE DAYS REQUESTED BY . WOULD LIKE TO TAKE PT HOME WITH HOSPICE AT THE END OF THE 2 DAYS, SO LONG HE QUALIFIES. ATTEMPTED TO REACH DR. BURTON, UNABLE TO LEAVE MESSAGE. WILL ATTEMPT TO CALL HIM AGAIN IN 30 MIN.
--- NOTE | 2025-01-02 11:37 | NUR ---
DR. BURTON MET WITH PT AND . THEY DISCUSSED PT'S HEALTH AND PROGNOSIS. AT THIS TIME, THEY WILL STILL WAIT 1-2 MORE DAYS, AND IF PT STABLIZED, MAY ATTEMPT SNF. IF NOT, LIKELY WILL GO THE HOSPICE ROUTE.
[2025-01-02] MEDS ORDERED: Lidocaine 2% Viscous Soln 20 ML,Nystatin 100,000 Unit/ml Susp 20 ML,Mag Hydrox/Al Hydro... MT SCH (17:00)
--- NOTE | 2025-01-02 17:50 | NUR ---
SHIFT SUMMARY PT AOX3/4, COOPERATIVE, ABLE TO MAKE NEEDS KNOWN. PT RECEIVED 1 UNIT PRBC AND 1LITER NS BOLUS FOR HYPOTENSION AND TACHYCARDIA, RESPONDED APPROPRIATELY. NG TUBE ORDERED FOR SUPPLEMENTAL FEEDING, AWAITING NG TUBE PLACEMENT XRAY RESULTS. PT REQUESTING TO EAT, ALLOWING YOGURT, ENSURE, PUDDING, ETC. NO PLAN FOR DC YET. BED IN LOWEST POSITION, CALL LIGHT WITHIN REACH.
[2025-01-03] VITALS (10 sets, daily range): BP systolic 86–116; BP diastolic 50–90
--- NOTE | 2025-01-03 03:10 | NUR ---
SHIFT SUMMARY NO ACUTE EVENTS DURING THIS SHIFT. HOB>45 DEGREES. DOFFHOB FEEDING CONTINUOUS @20MLS/HR ORDERED WITH Q4HR 30ML FLUSHES. PT IS TOLERATING WELL. PT DENIES PAIN @HS. A/O X3,CONFUSED, COOPERATIVE WITH CARE. O2 RA, SAT'S> 92%. BED AT THE LOWEST POSITION, CALL LIGHT W/I REACH. PT IS ABLE TO MAKE HIS NEEDS KNOWN.
[2025-01-03 06:20] LABS: Hematocrit 18.9 % (37.0-53.0); Hemoglobin 6.2 g/dL (13.5-17.5); Mean Corpuscular HGB 29.2 pg (26.0-34.0); Mean Corpuscular HGB Conc 32.8 g/dL (31.5-36.5); Mean Corpuscular Volume 89 fL (80-100); Mean Platelet Volume 9.9 fL (9.1-12.4); Platelet Count 207 K/mm3 (150-400); RDW Coefficient Variation 19.2 % (11.7-14.2); RDW Standard Deviation 57.1 fL (35.1-46.3); Red Blood Cell Count 2.12 M/mm3 (4.30-5.90)
--- NOTE | 2025-01-03 06:32 | NUR ---
NEW T-ORDER RECEIVED FROM THE ON-CALL HOSPITALIST DR. VILLAFANA: 1 UNIT OF PACKED RBC'S, URGENT. ENTERED TO REJI, RN NOTIFIED.
[2025-01-03 06:47] LABS: Bun/Creatinine Ratio 45.7 (12.0-20.0); Calcium, Blood 6.7 mg/dL (8.5-10.1); Creatinine, Blood 0.77 mg/dL (0.60-1.20); Magnesium, Blood 1.3 mg/dL (1.6-2.4); Phosphorus, Blood 1.7 mg/dL (2.5-4.9); Potassium, Blood 3.6 mmol/L (3.5-5.5)
[2025-01-03] MEDS ORDERED: Lidocaine 2% Viscous Soln 15 ML UDC MT SCH (11:40)
[2025-01-03] MEDS ORDERED: Protein Supplement 30 ML UD PT SCH (14:00)
[2025-01-03] MEDS ORDERED: Magnesium Sulf 2 GM/Water 50ML 50 ML IV STA (15:55)
[2025-01-03] MEDS ORDERED: Potassium Phosphate Dibasic 20 MM in Dextrose 5% 500 ML IV STA (15:57)
[2025-01-03] MEDS ORDERED: Pantoprazole Sodium 40 MG Injection IV SCH (16:30)
--- NOTE | 2025-01-03 18:24 | NUR ---
SHIFT SUMMARY PATIENT A/OX3, CONFUSED INTERMITTENTLY BUT EASY TO REORIENT. COOPERATIVE WITH CARE, FLAT AFFECT AND WITHDRAWN. GENERALIZED WEAKNESS. PATIENT REMOVED HIS NG TUBE THIS AM, MD NOTIFED AND STATED TO ATTEMPT PO FEEDINGS AND DISCONTINUE NG ORDER. PATIENT COMPLAINING OF HEADACHE THIS AM, TYLENOL ADMINISTERED PER NOV. PLAN WAS TO HAVE MRI THIS AFTERNOON, MRI MACHINE NEEDING MAINTAINENCE AND PLAN TO RESCHEDULE MRI FOR TOMORROW.HGB 6.2 THIS AM, PATIENT SYMPTOMATIC AND LIGHTHEADED, HYPOTENSIVE. 1 UNIT OF PRBCs ADMINISTERED, BLOOD PRESSURE REMAINS SOFT, MD AWARE. PRESSURE INJURY NOTED TO LEFT BUTTOCK AND INTERGLUTEAL CREST EXCORIATION, MD NOTIFIED AND WOUND CARE ORDERS OBTAINED AND WOUND CARE PROVIDED. IV MAGNESIUM AND POTASSIUM PHOS ADMINISTERED PER NOV. PATIENT INCREASED TO REGULAR DIET WITH SPEECH THERAPY. PARTICIPATED IN PHYSICAL THERAPY. NO OTHER CONCERNS AT THIS TIME.
[2025-01-04 05:10] VITALS: BP 112/66
[2025-01-04 06:05] LABS: BASOPHILS ABSOLUTE AUTO 0.04 K/mm3 (0.00-0.23); BASOPHILS PERCENT AUTO 1 % (0-2); EOSINOPHILS ABSOLUTE AUTO 0.13 K/mm3 (0.00-0.68); EOSINOPHILS PERCENT AUTO 2 % (0-6); Hematocrit 20.8 % (37.0-53.0); Hemoglobin 6.9 g/dL (13.5-17.5); IMMATURE GRAN ABSOLUTE AUTO 0.19 K/mm3 (0.00-0.10); IMMATURE GRAN PERCENT AUTO 2 % (0-1); LYMPHOCYTES ABSOLUTE AUTO 0.73 K/mm3 (0.84-5.20); LYMPHOCYTES PERCENT AUTO 9 % (21-46); MONOCYTES PERCENT AUTO 10 % (4-13); Mean Corpuscular HGB 30.3 pg (26.0-34.0); Mean Corpuscular HGB Conc 33.2 g/dL (31.5-36.5); Mean Corpuscular Volume 91 fL (80-100); NEUTROPHILS ABSOLUTE AUTO 6.52 K/mm3 (1.96-9.15); NEUTROPHILS PERCENT AUTO 78 % (41-73); Platelet Count 199 K/mm3 (150-400); RDW Coefficient Variation 19.1 % (11.7-14.2); RDW Standard Deviation 57.4 fL (35.1-46.3); Red Blood Cell Count 2.28 M/mm3 (4.30-5.90); White Blood Cell Count 8.41 K/mm3 (4.00-11.30)
[2025-01-04 06:29] LABS: Bun/Creatinine Ratio 44.2 (12.0-20.0); Calcium, Blood 6.5 mg/dL (8.5-10.1); Creatinine, Blood 0.7 mg/dL (0.60-1.20); Magnesium, Blood 1.6 mg/dL (1.6-2.4); Phosphorus, Blood 2.4 mg/dL (2.5-4.9)
--- NOTE | 2025-01-04 06:53 | NUR ---
SHIFT SUMMARY PT A&Ox4. COOPERATIVE WITH CARE BUT FLAT EFFECT. NO C/O PAIN. NS INFUSING AT 150ml/hr. PT TURNED Q2 HRS. VSS. RT AT BEDSIDE DURING THE NIGHT FOR BREATHING TREATMENT. NO ACUTE CHANGES. BED ALARM ON. BED IN LOWEST POSITION AND CALL LIGHT IN REACH.
[2025-01-04 15:16] VITALS: BP 95/64
[2025-01-04] MEDS ORDERED: BusPIRone HCl 5 MG Tab PO SCH (18:10)
--- NOTE | 2025-01-04 19:30 | NUR ---
SHIFT SUMMARY PATIENT A/OX3, ABLE TO MAKE NEEDS KNOWN. PLEASANT ADN COOPERATVIE WITH CARE. CONFUSED INTERMITTENTLY. FAMILY AT BEDSIDE THIS EVENING AND PATIENT COMPLAINING OF ANXIETY AND STATED " I CAN NOT GO THROUGH THAT AGAIN", PATIENT REQUESTING HOSPICE CARE. FAMILY BECAME TEARFUL, DAUGHTER HAD ONE EPISODE OF EMESIS D/T HIGHTENED EMOTIONS. THERAPEUTIC LISTENING PROVIDED AND EDUCATED FAMILY AND PATIENT ON HOSPICE AND PALLIATIVE CARE INTERVENTIONS. MD NOTIFED VIA TELEPHONE AND NEW ORDER FOR ANXIETY MEDICATION PLACED AND ADMINISTERED PER NOV. PALLIATIVE CARE CONSULT ALREADY IN PLACE AND FAMILY EDUCATED TO REQUETS FURTHER DISCUSSION IN THE MORNING WHEN PALLIATIVE CARE TEAM CAN DISCUSS FURTHER. HGB OF 6.9 TODAY, MD AWARE AND NO TRANSFUSIONS TODAY PATIENT HAS HAD MULTIPLE UNITS OF BLOOD THIS HOSPITALIZATION ADN DR. ADAMES WANTING TO CONTINUE TO MONITOR AND RE-ASSESS TOMORROW. PATIENT WITH 2 SMALL EPISODES OF BLACK TARRY STOOLS TODAY. COMPLAINING OF NAUSEA THIS EVENING, ZOFRAN ADMINISTERD. ALSO COMPLAINING OF SOB, SUPPLEMENTAL OXYGEN PLACED VIA NASAL CANNULA AT 2 LPM, HOWEVER PATIENT SPO2 WNL ON ROOM AIR. SUPPLEMENTAL OXYGEN HAS BEEN COMFORTING PATIENT. MRI COMPLETED TODAY AND NEGATIVE FOR CVA. POWERGLIDE DRESSING CHANGED TODAY. DENTAL HYGIENIST ASSESSED PATIENT THIS AFTERNOON AND PATIENT FOUND TO HAVE LARGE CANKER SORE, REQUESTED SARI'S MOUTHWASH. MD NOTIFIE AND DISCUSSED THAT NO NEW ORDER WILL PLACED AT THIS TIME CURRENT REGIMEN OF LIDOCAINE MOUTHRINSE HAS BEEN HELPING PATIENT AND PATIENT'S APPETITE HAS IMPROVE. PATIENT HAS BEEN REQUESTING SNACKS AND EATING THROUGHOUT THE DAY. NO OTHER CONCERNS AT THIS TIME, BEDSIDE SHIFT REPORT COMPLETED WITH CONSUMER ADVOCATE RN.
[2025-01-04 20:33] VITALS: BP 164/122
[2025-01-04 22:00] VITALS: BP 120/100
[2025-01-05] VITALS (11 sets, daily range): BP systolic 91–125; BP diastolic 51–102
[2025-01-05] MEDS ORDERED: LORazepam 0.5 MG Tab PO ONE (02:20)
--- NOTE | 2025-01-05 04:36 | NUR ---
SHIFT SUMMARY PT A&0x3. IRRIATABLE AT START OF SHIFT. PT DELINED TO TAKE MOST MEDICATION AND ASSESSMENT. PT ALSO REFUSED FIRST BREATHING TX TONIGHT. LATER PT REPORTED FEELING SOB AND REQUESTED BREATHING TX. PT CONTINUED TO FEEL SOB AND CALLED AND ORDER GIVEN FOR 1 TIME DOSE OF ATIVAN. PT ON 3L OF OXYGEN AND SATING AROUND 95%. PT CALLS APPROPRIATELY. BED IN LOWEST POSITION AND CALL LIGHT IN REACH.
[2025-01-05 05:17] LABS: BASOPHILS ABSOLUTE AUTO 0.02 K/mm3 (0.00-0.23); BASOPHILS PERCENT AUTO 0 % (0-2); EOSINOPHILS ABSOLUTE AUTO 0.08 K/mm3 (0.00-0.68); EOSINOPHILS PERCENT AUTO 1 % (0-6); IMMATURE GRAN ABSOLUTE AUTO 0.35 K/mm3 (0.00-0.10); IMMATURE GRAN PERCENT AUTO 5 % (0-1); LYMPHOCYTES ABSOLUTE AUTO 0.76 K/mm3 (0.84-5.20); LYMPHOCYTES PERCENT AUTO 10 % (21-46); MONOCYTES ABSOLUTE AUTO 0.59 K/mm3 (0.16-1.47); MONOCYTES PERCENT AUTO 8 % (4-13); Mean Corpuscular HGB 29.4 pg (26.0-34.0); Mean Corpuscular HGB Conc 31.6 g/dL (31.5-36.5); Mean Corpuscular Volume 93 fL (80-100); Mean Platelet Volume 9.9 fL (9.1-12.4); NEUTROPHILS ABSOLUTE AUTO 5.75 K/mm3 (1.96-9.15); NEUTROPHILS PERCENT AUTO 76 % (41-73); Platelet Count 179 K/mm3 (150-400); RDW Coefficient Variation 19.6 % (11.7-14.2); RDW Standard Deviation 58.6 fL (35.1-46.3); Red Blood Cell Count 1.63 M/mm3 (4.30-5.90); White Blood Cell Count 7.55 K/mm3 (4.00-11.30)
[2025-01-05 05:20] LABS: Hematocrit 15.2 % (37.0-53.0); Hemoglobin 4.8 g/dL (13.5-17.5)
[2025-01-05 05:39] LABS: Bun/Creatinine Ratio 49.6 (12.0-20.0); Calcium, Blood 7.2 mg/dL (8.5-10.1); Creatinine, Blood 0.91 mg/dL (0.60-1.20); Magnesium, Blood 1.5 mg/dL (1.6-2.4); Phosphorus, Blood 2.4 mg/dL (2.5-4.9); Potassium, Blood 3.8 mmol/L (3.5-5.5)
[2025-01-05] MEDS ORDERED: Magnesium Sulf 2 GM/Water 50ML 50 ML IV ONE (08:30)
[2025-01-05] MEDS ORDERED: Nicotine 14 MG PATCH TOP SCH (09:00)
--- NOTE | 2025-01-05 12:23 | NUR ---
MET WITH PT'S , WHILE PT APPEARS TO BE SLEEPING. PT HAS CONTINUED STATING HE IS GETTNG TIRED, AND HAS NOW TOLD BOTH STAFF AND HE WANTS TO STOP TREATMENTS AND GO HOME. BOTH PT AND STATE EITHER AGENCY, [facility] OR [facility] IS OK WITH THEM. INFORMATION PASSED TO CM, WHO IS WORKING ON D/C PLAN. PT WILL RECEIVE A FINAL UNIT OF PRBC'S TODAY.
[2025-01-05] MEDS ORDERED: ONDA4ODT MM (13:36)
[2025-01-05] MEDS ORDERED: BUSP5 PO (13:36)
[2025-01-05] MEDS ORDERED: MORP20L PO (13:36)
[2025-01-05] MEDS ORDERED: Pantoprazole Sodium 20 MG Tab PO SCH (16:30)
--- NOTE | 2025-01-05 17:14 | NUR ---
DISCHARGE NOTE: PATIENT PREPARED FOR DISCHARGE; POWER GLIDE REMOVED, GOT DRESSED AND COLLECTED BELONGINGS. MEDICAL TRANSPORT ARRIVED; PACKET PROVIDED. PATIENT TAKEN VIA GURNEY, NO SIGNS OR SYMPTOMS OF DISTRESS WITH DISCHARGE.
[2025-01-05] MEDS ORDERED: Pantoprazole Sodium 40 MG Injection IV SCH (21:00)
[2025-01-07 06:08] LABS: 25-HYDROXYVITAMIN D2 <1.0 ng/mL; 25-HYDROXYVITAMIN D2 D3 TOTAL 26.9 ng/mL (30.0-80.0); 25-HYDROXYVITAMIN D3 26.9 ng/mL
== END 2025-01-05 17:11 | disposition hospice, home (50) | DRG 871 ==
LOC: ER 13:03 → ERHOLD 18:51 → SURS 18:51 → PCU 18:51 → MEDS 18:51 → PCU 20:40 → SURS 12-27 15:43 → MEDS 12-31 12:25
PROVIDERS: Emergency Medicine; Internal Medicine; Nurse Practitioner Acute Care; Surgery; ADMIT Student in an Organized Health Care Education/Training Program
PROC: 3E03329 Introduction of Other Anti-infective into Peripheral Vein, Percutaneous Approach (ICD-10-PCS; 2024-12-26)
PROC: 30233N1 Transfusion of Nonautologous Red Blood Cells into Peripheral Vein, Percutaneous Approach (ICD-10-PCS; 2024-12-30)
PROC: 0DB78ZX Excision of Stomach, Pylorus, Via Natural or Artificial Opening Endoscopic, Diagnostic (ICD-10-PCS; principal; 2024-12-30 07:00)
DX: A41.9 Sepsis, unspecified organism (principal); E43 Unspecified severe protein-calorie malnutrition; G93.41 Metabolic encephalopathy; K26.4 Chronic or unspecified duodenal ulcer with hemorrhage; R57.1 Hypovolemic shock; Z68.1 Body mass index [BMI] 19.9 or less, adult; J96.11 Chronic respiratory failure with hypoxia; N17.9 Acute kidney failure, unspecified; N13.6 Pyonephrosis; D62 Acute posthemorrhagic anemia; E87.21 Acute metabolic acidosis; G45.9 Transient cerebral ischemic attack, unspecified; E87.1 Hypo-osmolality and hyponatremia; Z66 Do not resuscitate; Z51.5 Encounter for palliative care; F03.90 Unspecified dementia, unspecified severity, without behavioral disturbance, psychotic disturbance, mood disturbance, and anxiety; J44.9 Chronic obstructive pulmonary disease, unspecified; I10 Essential (primary) hypertension; I25.10 Atherosclerotic heart disease of native coronary artery without angina pectoris; E78.5 Hyperlipidemia, unspecified; F17.210 Nicotine dependence, cigarettes, uncomplicated; D50.9 Iron deficiency anemia, unspecified; I35.0 Nonrheumatic aortic (valve) stenosis; K29.70 Gastritis, unspecified, without bleeding; K22.2 Esophageal obstruction; E86.0 Dehydration; G83.24 Monoplegia of upper limb affecting left nondominant side; E87.6 Hypokalemia; E83.42 Hypomagnesemia; E83.39 Other disorders of phosphorus metabolism; R29.810 Facial weakness; E83.51 Hypocalcemia; Z53.8 Procedure and treatment not carried out for other reasons; R62.7 Adult failure to thrive; Z85.118 Personal history of other malignant neoplasm of bronchus and lung; Z79.899 Other long term (current) drug therapy; Z99.81 Dependence on supplemental oxygen
CPT/HCPCS: 36415; 36430; 51702; 70450; 70496; 70498; 70551; 71045; 71046; 74177; 80048; 80053; 80202; 80320; 81001; 82010; 82272; 82306; 82330; 82607; 82728; 82746; 82803; 83540; 83550; 83605; 83735; 83970; 84100; 84132; 84145; 85014; 85018; 85025; 85027; 86850; 86900; 86901; 86923; 87040; 87077; 87086; 88305; 88342; 92526; 92610; 93005; 93010; 93306; 94640; 94664; 94760; 96361-59; 96365-59; 97110; 97116; 97161; 97165; 97530; 99285-25; A9270; C1751; G0480; J0612; J0696; J1644; J1750; J2003; J2405; J2470; J2704; J3370; J3475; J7030; J7040; J7050; J7060; J7120; P9016; Q9967